=== PATIENT | male | born 1935 | race Caucasian/White ===

== ENCOUNTER → 2016-11-19 | Outpatient (CLI) | payer MEDICARE, OTHER ==
[~2016-11-19] MED LIST: ALLO100T PO; AMLO10TA PO; ASPI81TA57 PO; Azithromycin PO; KETO5DRO14 OD; LEVO750T6 PO; LOTE5DRO4 OD; Losartan Potassium PO; NAPR220T29 PO; OMEP20CA12 PO; VALS1TAB78 PO; VALS1TAB80 PO; [UNRECOGNIZED DRUG - OTHER]
--- OUTSIDE RECORDS SUMMARY | 2016-11-19 09:33 | XMS REPORT | Continuity of Care Document ---
Author Author [facility] Organization [facility] Address Unknown Phone Unavailable Support Name Relationship Address Phone ADOLFO MCCORD MD Caregiver [address], [address] [place] [address] CLAU MORAES MD Caregiver [address] [place] [address] GELA MORAES MD Caregiver [address] [facility], [address] [id number] TEMI ABURTO Next Of Kin [address] [place] [address] Insurance Providers Payer Name Policy Number Subscriber Name Relationship [employer] [id number] Peter Aburto 18 Self / Same As Patient Comm Crossover Enter Ins Name [id number] Peter Aburto 18 Self / Same As Patient Advance Directives Directive Response Recorded Date/Time Advance Directives No 01/31/15 7:50pm Resuscitation Status Full Code 01/31/15 7:50pm Chief Complaint and Reason for Visit Chief Complaint PNEUMONIA Reason for Visit Pneumonia Problems Medical Problems Problem Onset Date Status Pneumonia Unknown Active Medications Medication Dose Route Sig Days/Qty Instructions Order Date Discontinued Date Status Valsartan/Hydrochlorothiazide 1 Each PO DAILY 01/31/15 02/01/15 Discontinued Allopurinol 100 Mg PO DAILY 01/31/15 02/01/15 Discontinued Amlodipine Besylate 10 Mg PO DAILY 01/31/15 Active Aspirin 81 Mg PO DAILY 01/31/15 Active Naproxen Sodium 440 Mg PO DAILY PRN PAIN TAKES 2 (220MG) TABLETS 02/03/15 Discontinued [Rescula] 01/31/15 02/01/15 Discontinued Valsartan/Hydrochlorothiazide 1 Tab PO DAILY 02/01/15 02/03/15 Discontinued Allopurinol 100 Mg PO DAILY 02/01/15 Active Omeprazole 20 Mg PO DAILY PRN ACID REFLUX 02/01/15 Active Loteprednol Etabonate 1 Drop OD TWICE A DAY 02/01/15 Active Ketorolac Tromethamine 1 Drop OD TWICE A DAY 02/01/15 Active [Azithromycin] 250 Mg PO DAILY 1 Days 02/03/15 Active [Losartan Potassium] 50 Mg PO DAILY 30 Days 02/03/15 Active Levofloxacin 750 Mg PO DAILY 4 Days 02/03/15 Active Social History Social History Problem Response Recorded Date/Time Alcohol Use Denies Use 01/31/2015 7:50pm Recreational Drug Use No 01/31/2015 7:50pm Recent Foreign Travel No 01/31/2015 7:50pm Recent Infectious Disease Exposure No 01/31/2015 7:50pm Smoking Status Never a Smoker 01/31/2015 7:50pm Query Response Start Date Stop Date Smoking Status Never a Smoker Hospital Discharge Instructions No hospital discharge instructions. Plan of Care Discharge Date 02/03/15 10:55am Disposition 30 STILL A PATIENT Instructions/Education Provided 2 Gram Sodium Diet (DC) Bacterial Pneumonia (DC) Forms Provided PDI Medical Prescriptions See Medications Section Referrals (Unspecified) Reason(s) for Referral: FEBRUARY 20, 2015 1015 Functional Status Query Response Date Recorded Comprehension Ability Understands Concepts February 03, 2015 8:30am Allergies, Adverse Reactions, Alerts Allergen Type Severity Reaction Status Last Updated No Known Drug Allergies Active 01/31/15 Immunizations Name Given Type Date of Pneumonia Vaccine 01/18/13 Historical Vital Signs Acute Vital Signs Vital Response Date/Time Temperature (Fahrenheit) 97.1 degrees F (97.6 - 99.5) Temperature (Calculated Celsius) 36.58731 degrees C (36.4 - 37.5) Temperature Source Temporal Pulse Rate (adult) 95 bpm (60 - 90) Respiratory Rate 18 bpm (12 - 24) O2 Sat by Pulse Oximetry 93 % (88 - 100) Blood Pressure 129/78 mm Hg Pain Pain Intensity 0 Height (Feet) 5 feet Height (Inches) 10.00 inches Height (Calculated Centimeters) 177.176166 cm Weight (Pounds) 219 pounds Weight (Ounces) 11.2 oz Weight (Calculated Grams) 29134.245 gm Weight (Calculated Kilograms) 99.522635 kilograms Calculated BMI 31.42 Results Laboratory Results Test Name Result Units Flags Reference Collection Date/Time Result Date/ Time Comments White Blood Count 12.1 10^3/uL H 4.3-11.0 02/03/2015 5:15am 02/03/2015 5: 55am Red Blood Count 3.98 10^6/uL L 4.35-5.85 02/03/2015 5:15am 02/03/2015 5: 55am Hemoglobin 12.0 G/DL L 13.3-17.7 02/03/2015 5:15am 02/03/2015 5:55am Hematocrit 36 % L 40-54 02/03/2015 5:15am 02/03/2015 5:55am Mean Corpuscular Volume 91 FL 80-99 02/03/2015 5:15am 02/03/2015 5: 55am Mean Corpuscular Hemoglobin 30 PG 25-34 02/03/2015 5:1502/03/2015 5: 55am Mean Corpuscular Hemoglobin Concent 33 G/DL 32-36 02/03/2015 5:15am 10/2014 5:55am Red Cell Distribution Width 14.0 % 10.0-14.5 02/03/2015 5:15am 2014 5:55am Platelet Count 321 10^3/uL 130-400 02/03/2015 5:15am 02/03/2015 5:55am Mean Platelet Volume 10.2 FL 7.4-10.4 02/03/2015 5:15am 02/03/2015 5: 55am Neutrophils (%) (Auto) 85 % H 42-75 01/31/2015 6:40pm 01/31/2015 6:50pm Lymphocytes (%) (Auto) 5 % L 12-44 01/31/2015 6:40pm 01/31/2015 6:50pm Monocytes (%) (Auto) 9 % 0-12 01/31/2015 6:40pm 01/31/2015 6:50pm Eosinophils (%) (Auto) 0 % 0-10 01/31/2015 6:40pm 01/31/2015 6:50pm Basophils (%) (Auto) 0 % 0-10 01/31/2015 6:40pm 01/31/2015 6:50pm Neutrophils # (Auto) 16.6 X 10^3 H 1.8-7.8 01/31/2015 6:40pm 01/31/2015 6 :50pm Lymphocytes # (Auto) 1.1 X 10^3 1.0-4.0 01/31/2015 6:40pm 01/31/2015 6: 50pm Monocytes # (Auto) 1.7 X 10^3 H 0.0-1.0 01/31/2015 6:40pm 01/31/2015 6: 50pm Eosinophils # (Auto) 0.0 10^3/uL 0.0-0.3 01/31/2015 6:40pm 01/31/2015 6 :50pm Basophils # (Auto) 0.0 10^3/uL 0.0-0.1 01/31/2015 6:40pm 01/31/2015 6: 50pm Neutrophils % (Manual) 86 % 01/31/2015 6:40pm 01/31/2015 7:02pm Band Neutrophils 3 % 01/31/2015 6:40pm 01/31/2015 7:02pm Lymphocytes % (Manual) 5 % 01/31/2015 6:40pm 01/31/2015 7:02pm Monocytes % (Manual) 6 % 01/31/2015 6:40pm 01/31/2015 7:02pm Eosinophils % (Manual) 0 % 01/31/2015 6:40pm 01/31/2015 7:02pm Basophils % (Manual) 0 % 01/31/2015 6:40pm 01/31/2015 7:02pm Blood Morphology Comment NORMAL 01/31/2015 6:40pm 01/31/2015 7: 02pm Urine Color YELLOW 01/31/2015 2:36am 02/01/2015 3:03am Urine Clarity CLEAR 01/31/2015 2:36am 02/01/2015 3:03am Urine pH 5 5-9 01/31/2015 2:36am 02/01/2015 3:03am Urine Specific [place] 1.015 * 1.016-1.022 01/31/2015 2:36am 2014 3:03am Urine Protein 3+ * NEGATIVE 01/31/2015 2:36am 02/01/2015 3:03am Urine Glucose (UA) 3+ * NEGATIVE 01/31/2015 2:36am 02/01/2015 3:03am Urine RBC (Auto) NEGATIVE NEGATIVE 01/31/2015 2:36am 02/01/2015 3: 03am Urine Ketones NEGATIVE NEGATIVE 01/31/2015 2:36am 02/01/2015 3:03am Urine Nitrite NEGATIVE NEGATIVE 01/31/2015 2:36am 02/01/2015 3:03am Urine Bilirubin NEGATIVE NEGATIVE 01/31/2015 2:36am 02/01/2015 3: 03am Urine Urobilinogen NORMAL MG/DL NORMAL 01/31/2015 2:36am 02/01/2015 3: 03am Urine Leukocyte Esterase NEGATIVE NEGATIVE 01/31/2015 2:36am 2014 3:03am Urine RBC RARE /HPF 01/31/2015 2:36am 02/01/2015 3:03am Urine WBC NONE /HPF 01/31/2015 2:36am 02/01/2015 3:03am Urine Bacteria NEGATIVE /HPF 01/31/2015 2:36am 02/01/2015 3:03am Urine Squamous Epithelial Cells 2-5 /HPF 01/31/2015 2:36am 2014 3:03am Urine Crystals NONE /LPF 01/31/2015 2:36am 02/01/2015 3:03am Urine Casts NONE /LPF 01/31/2015 2:36am 02/01/2015 3:03am Urine Mucus NEGATIVE /LPF 01/31/2015 2:36am 02/01/2015 3:03am Urine Culture Indicated NO 01/31/2015 2:36am 02/01/2015 3:03am Sodium Level 138 MMOL/L 135-145 02/03/2015 5:15am 02/03/2015 6:14am Potassium Level 4.3 MMOL/L 3.6-5.0 02/03/2015 5:15am 02/03/2015 6:14am Chloride Level 109 MMOL/L H 98-107 02/03/2015 5:15am 02/03/2015 6:14am Carbon Dioxide Level 22 MMOL/L 21-32 02/03/2015 5:15am 02/03/2015 6: 14am Blood Urea Nitrogen 16 MG/DL 7-18 02/03/2015 5:15am 02/03/2015 6:14am Creatinine 1.14 MG/DL 0.60-1.30 02/03/2015 5:15am 02/03/2015 6:14am BUN/Creatinine Ratio 14 02/03/2015 5:15am 02/03/2015 6:14am Estimat Glomerular Filtration Rate > 60 02/03/2015 5:152014 6:14am GFR INTERPRETIVE DATA UNITS FOR ESTIMATED GFR (eGFR): mL/min/1.73 M2 REFERENCE RANGE FOR ESTIMATED GFR (eGFR) eGFR NORMAL eGFR >60 MODERATELY DECREASED eGFR 30-59 SEVERLY DECREASED eGFR 15-29 KIDNEY FAILURE <15 (OR DIALYSIS) Glucose Level 159 MG/DL H 70-105 02/03/2015 5:1502/03/2015 6:14am Glucometer 138 MG/DL H 70-110 02/03/2015 5:2002/03/2015 5:27am Calcium Level 9.6 MG/DL 8.5-10.1 02/03/2015 5:1502/03/2015 6:14am Magnesium Level 2.1 MG/DL 1.8-2.4 02/02/2015 4:2002/02/2015 5:32am Total Bilirubin 1.0 MG/DL 0.1-1.0 02/03/2015 5:1502/03/2015 6:14am Alkaline Phosphatase 269 U/L H 40-136 02/03/2015 5:15am 02/03/2015 6: 14am Aspartate Amino Transf (AST/SGOT) 134 U/L H 5-34 02/03/2015 5:152014 6:14am Alanine Aminotransferase (ALT/SGPT) 128 U/L H 0-55 02/03/2015 5:1510/2014 6:14am Total Protein 6.7 G/DL 6.4-8.2 02/03/2015 5:1502/03/2015 6:14am Albumin 3.0 G/DL L 3.2-4.5 02/03/2015 5:1502/03/2015 6:14am Microbiology Results Procedure Source Result Collection Date/Time Result Date/Time Blood Culture Peripheral, Lt Ac GRAM NEGATIVE KATE 01/31/2015 6:43pm 2014 7:17am ESCHERICHIA COLI 01/31/2015 6:43pm 02/02/2015 7:17am Procedures No known history of procedures. Encounters Encounter Location Date/Time Discharged Inpatient Via [facility] 01/31/15 7:00pm Recent Diagnosis Pneumonia
--- NOTE | 2016-11-19 14:19 | Diagnostic Imaging Report ---
Ultrasound of the pelvis. INDICATION: Renal failure. FINDINGS: There is mild distention of the urinary bladder with prevoid volume of 341 mL. There is a lobulated contour of the urinary bladder with no solid mass. Postvoid volume is 300. IMPRESSION: Incomplete emptying of the bladder with postvoid volume of 300 mL. Lobulated contour of the bladder is seen. This might relate to chronic obstructive changes, presumably prostate-related. Correlate clinically. Dictated by: Dictated on workstation # [id number]
--- NOTE | 2016-11-19 14:58 | Diagnostic Imaging Report ---
Renal duplex ultrasound. INDICATION: Hypertension, renal failure. FINDINGS: The right kidney is 8.8 cm in length and demonstrates moderate atrophy of the cortex. The left kidney is 10.4 cm with cortical thickness near the lower limits of normal. The right renal artery is obscured by bowel gas. The left renal artery is only seen proximally with peak systolic velocities of 53 cm/sec, within normal limits. The mid and distal segments of the left renal artery are not seen. Resistive index in the left kidney is 0.64 to 0.71. Mildly distended urinary bladder with lobulated contour seen. No hydronephrosis in the kidneys. IMPRESSION: Moderate atrophy in the right kidney. Limited evaluation of the renal arteries. Dictated by: Dictated on workstation # [id number]
== END ==
LOC: RAD 09:30
PROVIDERS: ATTEND Internal Medicine Nephrology
DX: I12.9 Hypertensive chronic kidney disease with stage 1 through stage 4 chronic kidney disease, or unspecified chronic kidney disease (principal); N18.3 Chronic kidney disease, stage 3 (moderate); M10.9 Gout, unspecified; M19.90 Unspecified osteoarthritis, unspecified site; E78.5 Hyperlipidemia, unspecified; R80.9 Proteinuria, unspecified
CPT/HCPCS: 76857; 93975

== ENCOUNTER → 2017-01-10 | Outpatient (CLI) | payer MEDICARE, OTHER ==
--- NOTE | 2017-01-10 11:36 | Diagnostic Imaging Report ---
INDICATION: Cough. PA and lateral views of the chest are obtained. Comparison is made study of 03/13/2015. FINDINGS: Overall heart size is at the upper limits of normal. There is no evidence of pneumothorax or consolidation. 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 No pneumothorax or significant pleural fluid is identified. Degenerative changes in the spine are stable. IMPRESSION: No acute abnormality or adverse change is identified. Dictated by: Dictated on workstation # [id number]
== END ==
LOC: RAD 11:15
PROVIDERS: ATTEND Physician Assistant
DX: R05 Cough (principal); R06.2 Wheezing
CPT/HCPCS: 71020

== ENCOUNTER → 2017-07-31 | Outpatient (CLI) | payer MEDICARE, OTHER ==
[2017-07-31 11:08] LABS: BASOPHILS # (AUTO) 0.1 10^3/uL (0.0-0.1); BASOPHILS % (AUTO) 0 % (0-10); EOSINOPHILS # (AUTO) 0.5 10^3/uL (0.0-0.3); EOSINOPHILS % (AUTO) 4 % (0-10); LYMPHOCYTES # (AUTO) 3.7 X 10^3 (1.0-4.0); LYMPHOCYTES % (AUTO) 26 % (12-44); MEAN CORPUSCULAR HEMOGLOBIN 31 PG (25-34); MEAN CORPUSCULAR HGB CONC 33 G/DL (32-36); MEAN CORPUSCULAR VOLUME 93 FL (80-99); MEAN PLATELET VOLUME 9.8 FL (7.4-10.4); MONOCYTES # (AUTO) 1.1 X 10^3 (0.0-1.0); MONOCYTES % (AUTO) 8 % (0-12); NEUTROPHILS # (AUTO) 8.8 X 10^3 (1.8-7.8); NEUTROPHILS % (AUTO) 62 % (42-75); PLATELET COUNT 319 10^3/uL (130-400); RED BLOOD COUNT 4.34 10^6/uL (4.35-5.85); RED CELL DISTRIBUTION WIDTH 14.2 % (10.0-14.5); RETICULOCYTE % 1.61 % (0.50-2.40); WHITE BLOOD COUNT 14.2 10^3/uL (4.3-11.0)
[2017-07-31 11:12] LABS: PATH WILL NEED TO REVIEW SMEAR PATH TO REVIEW
[2017-07-31 12:30] LABS: BASOPHILS % (MANUAL) 1 %; EOSINOPHILS % (MANUAL) 5 %; LYMPHOCYTES % (MANUAL) 30 %; NEUTROPHILS % (MANUAL) 56 %; REACTIVE LYMPHOCYTES 3 %
== END ==
LOC: LAB 10:48
PROVIDERS: ATTEND Nurse Practitioner
DX: D72.829 Elevated white blood cell count, unspecified (principal)
CPT/HCPCS: 36415; 85007; 85027; 85045

== ENCOUNTER → 2017-08-06 | Outpatient (CLI) | payer MEDICARE, OTHER | LOC: LAB 12:00 | PROVIDERS: ATTEND Internal Medicine | DX: D72.829 Elevated white blood cell count, unspecified (principal) | CPT/HCPCS: 36415; 81270; 88368; 88369 ==

== ENCOUNTER 2017-08-19 21:01 | Outpatient (CLI) | payer MEDICARE, OTHER | END 2017-08-20 06:02 | disposition home or self-care (01) | LOC: SLEEP 21:01 | PROVIDERS: ATTEND Internal Medicine Cardiovascular Disease | DX: G47.33 Obstructive sleep apnea (adult) (pediatric) (principal); I10 Essential (primary) hypertension; R06.83 Snoring | CPT/HCPCS: 95810 ==

== ENCOUNTER 2017-09-20 20:55 | Outpatient (CLI) | payer MEDICARE, OTHER | END 2017-09-21 06:05 | disposition home or self-care (01) | LOC: SLEEP 20:55 | PROVIDERS: ATTEND Otolaryngology Otolaryngology/Facial Plastic Surgery | DX: G47.33 Obstructive sleep apnea (adult) (pediatric) (principal) | CPT/HCPCS: 95811 ==

== ENCOUNTER → 2017-10-13 | Outpatient (CLI) | payer MEDICARE, OTHER ==
--- NOTE | 2017-10-13 17:22 | Diagnostic Imaging Report ---
INDICATION: Shortness of breath. PA and lateral views of the chest were obtained. Comparison made with prior examination from 01/10/2017. FINDINGS: There is cardiomegaly. There are patchy bibasilar infiltrates left greater than right. There is no pleural effusion or pneumothorax. Mediastinum is unremarkable. IMPRESSION: Patchy bibasilar infiltrates left greater than right. Mild cardiomegaly. Dictated by: Dictated on workstation # [id number]
== END ==
LOC: RAD 16:25
PROVIDERS: ATTEND Nurse Practitioner
DX: I51.7 Cardiomegaly (principal)
CPT/HCPCS: 71046

== ENCOUNTER → 2017-10-23 | Outpatient (CLI) | payer MEDICARE, OTHER ==
--- NOTE | 2017-10-23 12:06 | Diagnostic Imaging Report ---
INDICATION: Pneumonia. TIME OF EXAM: 12:04 PM Correlation is made with prior study from 10/13/2017. FINDINGS: The heart remains enlarged. Patchy airspace infiltrates in the left lung base persist. There may be minimal patchy infiltrate in the right mid and lower lung field as well. Overall appearance is similar to prior. No new parenchymal abnormality is seen. The upper lung arita are clear. No effusion or pneumothorax is seen. IMPRESSION: Stable patchy bilateral pulmonary infiltrates when compared with examination 10 days earlier. Dictated by: Dictated on workstation # [id number]
== END ==
LOC: RAD 11:20
PROVIDERS: ATTEND Nurse Practitioner
DX: J18.9 Pneumonia, unspecified organism (principal); R91.8 Other nonspecific abnormal finding of lung field
CPT/HCPCS: 71046

== ENCOUNTER 2017-11-03 12:26 | Outpatient (RCR) | payer MEDICARE, OTHER | END 2018-02-01 | disposition home or self-care (01) | LOC: CARD 12:26 | PROVIDERS: ATTEND Nurse Practitioner | DX: R00.1 Bradycardia, unspecified (principal); R53.83 Other fatigue | CPT/HCPCS: 93225; 93226 ==

== ENCOUNTER 2018-08-05 10:44 | Inpatient (IN) | payer MEDICARE, OTHER ==
[~2018-08-05] VITALS: Ht 175.3 cm; Wt 112.5 kg
--- NOTE | 2018-08-05 11:03 | ED Lower Extremity ---
General Chief Complaint: Trauma-Non Activation Stated Complaint: WEAK/BACK PAIN Source: patient, family ( and son) Exam Limitations: no limitations History of Present Illness Date Seen by Provider: Aug 05, 2018 Time Seen by Provider: 11:03 Initial Comments Patient is an 83-year-old male who was brought to the emergency room by [facility] for reports of increasing weakness, low back pain, and right knee pain. He reports that he's got chronic right knee pain but it is worse than normal. He reports that last night he slid out of his bed landing on his tailbone causing the low back pain. He denies injuring the right knee from the fall. There is obvious swelling to the right knee. Onset: yesterday, last week Pain/Injury Location: right knee Method of Injury: fell Allergies and Home Medications Allergies Coded Allergies: No Known Drug Allergies (Unverified , 01/31/15) Home Medications Allopurinol 100 Mg Tablet, 100 MG PO DAILY, (Reported) Amlodipine Besylate 10 Mg Tablet, 10 MG PO DAILY, (Reported) Aspirin 81 Mg Tablet.dr, 81 MG PO DAILY, (Reported) Bethanechol Chloride 50 Mg Tablet, 50 MG PO BID, (Reported) Calcitriol 0.25 Mcg Capsule, 0.25 MCG PO DAILY, (Reported) Carboxymethylcellulose Sodium 15 Ml Drops, 1-2 DROPS OU TID PRN for DRY EYES, ( Reported) Finasteride 5 Mg Tablet, 5 MG PO DAILY, (Reported) Furosemide 20 Mg Tablet, 60 MG PO DAILY, (Reported) TAKES 3 (20MG) TABLETS Metoprolol Succinate 25 Mg Tab.er.24h, 25 MG PO DAILY, (Reported) Tamsulosin HCl 0.4 Mg Cap.er.24h, 0.4 MG PO 1730, (Reported) Patient Home Medication List Home Medication List Reviewed: Yes Review of Systems Constitutional: see HPI; No chills, No fever; weakness Musculoskeletal: see HPI, back pain, joint pain (right knee) All Other Systems Reviewed Negative Unless Noted: Yes Past Ubjorbg-Zyutux-Dyzjdc Hx Past Med/Social Hx: Reviewed Nursing Past Med/Soc Hx Immunizations Up To Date Date of Pneumonia Vaccine: Jan 18, 2013 Past Medical History Eye Surgery Pneumonia High Cholesterol, Hypertension Reproductive Disorders: No Gout Cataract Adverse Reaction/Blood Tranf: No Family Medical History Reviewed Nursing Family Hx Arthritis 19 FATHER, Onset:Unknown Dementia 19 MOTHER, Onset:Unknown FH: colon cancer 19 FATHER, Onset:Unknown FH: emphysema 19 MOTHER, Onset:Unknown Physical Exam Vital Signs Vital Signs - First Documented 08/05/18 10:46 Temp 98.1 Pulse 87 Resp 15 B/P (MAP) 168/94 (118) Pulse Ox 96 O2 Delivery Room Air Capillary Refill : Height, Weight, BMI Height: 5'10.00" Weight: 219lbs. 11.2oz. 99.474165gd; BMI Method:Stated General Appearance: WD/WN, no apparent distress HEENT: PERRL/EOMI, normal ENT inspection, TMs normal Cardiovascular: normal peripheral pulses, regular rate, rhythm, no edema, no gallop, no JVD, no murmur Respiratory: chest non-tender, lungs clear, normal breath sounds, no respiratory distress, no accessory muscle use Gastrointestinal: normal bowel sounds, non tender, soft, no organomegaly, no pulsatile mass Back: normal inspection, no CVA tenderness, vertebral tenderness Knees: left knee non-tender, left knee normal inspection, left knee normal range of motion, left knee no evidence of injury; right knee joint effusion, right knee pain, right knee soft tissue tenderness, right knee swelling, right knee other (redness, limited range of motion) Neurologic/Tendon: normal sensation, normal motor functions Neurologic/Psychiatric: alert, normal mood/affect, oriented x 3 Skin: normal color, warm/dry Procedures/Interventions Additional Procedures: Arthrocentesis Aspirating Progress Consent was obtained for procedure. The area was cleaned with Betadine. The area was draped in sterile fashion. The area was anesthetized with 1% lidocaine approximately 3 mL's. 50 mL of serosanguineous synovial fluid was aspirated. Sterile technique was used. Progress/Results/Core Measures Results/Orders Lab Results Laboratory Tests Test 08/05/18 10:53 08/05/18 11:13 08/05/18 12:00 08/05/18 14:15 Range/Units White Blood Count 15.1 H 4.3-11.0 10^3/uL Red Blood Count 4.22 L 4.35-5.85 10^6/uL Hemoglobin 12.9 L 13.3-17.7 G/DL Hematocrit 40 40-54 % Mean Corpuscular Volume 94 80-99 FL Mean Corpuscular Hemoglobin 31 25-34 PG Mean Corpuscular Hemoglobin Concent 33 32-36 G/DL Red Cell Distribution Width 15.1 H 10.0-14.5 % Platelet Count 267 130-400 10^3/uL Mean Platelet Volume 10.6 H 7.4-10.4 FL Neutrophils (%) (Auto) 66 42-75 % Lymphocytes (%) (Auto) 20 12-44 % Monocytes (%) (Auto) 14 H 0-12 % Eosinophils (%) (Auto) 1 0-10 % Basophils (%) (Auto) 0 0-10 % Neutrophils # (Auto) 9.9 H 1.8-7.8 X 10^3 Lymphocytes # (Auto) 3.0 1.0-4.0 X 10^3 Monocytes # (Auto) 2.1 H 0.0-1.0 X 10^3 Eosinophils # (Auto) 0.1 0.0-0.3 10^3/uL Basophils # (Auto) 0.0 0.0-0.1 10^3/uL Neutrophils % (Manual) 71 % Lymphocytes % (Manual) 16 % Monocytes % (Manual) 10 % Eosinophils % (Manual) 0 % Basophils % (Manual) 0 % Band Neutrophils 2 % Reactive Lymphocytes 1 % Blood Morphology Comment NORMAL Erythrocyte Sedimentation Rate 55 H 0-30 MM/HR Sodium Level 142 135-145 MMOL/L Potassium Level 4.2 3.6-5.0 MMOL/L Chloride Level 107 98-107 MMOL/L Carbon Dioxide Level 22 21-32 MMOL/L Anion Gap 13 5-14 MMOL/L Blood Urea Nitrogen 44 H 7-18 MG/DL Creatinine 3.05 H 0.60-1.30 MG/DL Estimat Glomerular Filtration Rate 20 BUN/Creatinine Ratio 14 Glucose Level 136 H 70-105 MG/DL Uric Acid 9.3 H 2.6-7.2 MG/DL Calcium Level 10.3 H 8.5-10.1 MG/DL Corrected Calcium 10.2 H 8.5-10.1 MG/DL Total Bilirubin 0.8 0.1-1.0 MG/DL Aspartate Amino Transf (AST/SGOT) 10 5-34 U/L Alanine Aminotransferase (ALT/SGPT) 8 0-55 U/L Alkaline Phosphatase 77 40-136 U/L Total Protein 8.7 H 6.4-8.2 GM/DL Albumin 4.1 3.2-4.5 GM/DL Urine Color YELLOW Urine Clarity CLEAR Urine pH 5 5-9 Urine Specific [place] 1.020 1.016-1.022 Urine Protein 4+ NEGATIVE Urine Glucose (UA) 1+ H NEGATIVE Urine Ketones NEGATIVE NEGATIVE Urine Nitrite NEGATIVE NEGATIVE Urine Bilirubin NEGATIVE NEGATIVE Urine Urobilinogen NORMAL NORMAL MG/DL Urine Leukocyte Esterase NEGATIVE NEGATIVE Urine RBC (Auto) NEGATIVE NEGATIVE Urine RBC NONE /HPF Urine WBC NONE /HPF Urine Squamous Epithelial Cells 5-10 /HPF Urine Crystals PRESENT H /LPF Urine Amorphous Sediment RARE DELVIS URATES H /LPF Urine Bacteria NEGATIVE /HPF Urine Casts PRESENT /LPF Urine Hyaline Casts 2-5 H /LPF Urine Mucus NEGATIVE /LPF Urine Culture Indicated NO Lactic Acid Level 1.14 0.50-2.00 MMOL/L Body Fluid Source SYNOVIAL Body Fluid Color RED Body Fluid Appearance MKD CLDY/BLDY Body Fluid WBC /uL Body Fluid RBC /uL Body Fluid Polynuclear WBCs 90 % Body Fluid Mononuclear WBCs 4 % Body Fluid Lymphocytes 6 % Body Fluid Other Cells 0 % Body Fluid Crystals URIC ACID Micro Results Microbiology 08/05/18 Blood Culture - Preliminary, Resulted No growth 08/05/18 Blood Culture - Preliminary, Resulted Staph, Coag Neg (SPARERIBS TRIMMER) See Comments 08/05/18 Gram Stain - Final, Resulted 08/05/18 Body Fluid Culture - Preliminary, Resulted No growth My Orders Orders - HERBIE CHRISTIANSON Cbc With Automated Diff (08/05/18 11:03) Comprehensive Metabolic Panel (08/05/18 11:03) Erythrocyte Sedimentation Rate (08/05/18 11:03) Ua Culture If Indicated (08/05/18 11:03) Uric Acid (08/05/18 11:03) Ct Lumbar Spine Wo (08/05/18 11:05) Manual Differential (08/05/18 10:53) Chest 1 View, Ap/Pa Only (08/05/18 11:28) Blood Culture (08/05/18 11:40) Lactic Acid Analyzer (08/05/18 11:40) Knee, Right, 3 Views (08/05/18 12:49) Lidocaine 1% Inj 20 Ml (Xylocaine 1% Inj (08/05/18 14:00) Body Fluid Culture (08/05/18 13:56) Body Fluid Cell Count (08/05/18 13:56) Crystals,Body Fluid (08/05/18 13:56) Ns Iv 500 Ml (Sodium Chloride 0.9%) (08/05/18 15:30) Medications Given in ED Vital Signs/I&O 08/05/18 10:46 Temp 98.1 Pulse 87 Resp 15 B/P (MAP) 168/94 (118) Pulse Ox 96 O2 Delivery Room Air Progress Progress Note : Time: 15:29 Progress Note I have seen and evaluated the patient. I spoke to Dr. Lees and she is here to see the patient at this time. I've informed her of my concern with a possible septic joint and she will follow-up on the results of the synovial joint aspiration. She agrees with plans for admission. Patient agrees with plans for admission and plan of care. Departure Communication (Admissions) Time/Spoke to Admitting Phy: 15:29 Dr. Lees is here to see and evaluate the patient. She agrees with plans for admission with a PT, OT and inpatient rehabilitation consults. Impression Primary Impression: Debility Additional Impressions: Generalized weakness Right knee pain Disposition: ADMITTED INPATIENT Condition: Stable/Unchanged Admissions Decision to Admit Reason: Admit from ER (General) Decision to Admit/Date: Aug 05, 2018 Time/Decision to Admit Time: 15:30 Departure-Patient Inst. Referrals: CLAU MORAES MD (PCP/Family) Primary Care Physician HERBIE CHRISTIANSON Aug 05, 2018 11:03
[2018-08-05 11:10] LABS: BASOPHILS % (AUTO) 0 % (0-10); EOSINOPHILS # (AUTO) 0.1 10^3/uL (0.0-0.3); EOSINOPHILS % (AUTO) 1 % (0-10); HEMATOCRIT 40 % (40-54); HEMOGLOBIN 12.9 G/DL (13.3-17.7); LYMPHOCYTES % (AUTO) 20 % (12-44); MEAN CORPUSCULAR HEMOGLOBIN 31 PG (25-34); MEAN CORPUSCULAR HGB CONC 33 G/DL (32-36); MEAN CORPUSCULAR VOLUME 94 FL (80-99); MEAN PLATELET VOLUME 10.6 FL (7.4-10.4); MONOCYTES # (AUTO) 2.1 X 10^3 (0.0-1.0); MONOCYTES % (AUTO) 14 % (0-12); NEUTROPHILS # (AUTO) 9.9 X 10^3 (1.8-7.8); NEUTROPHILS % (AUTO) 66 % (42-75); PLATELET COUNT 267 10^3/uL (130-400); RED BLOOD COUNT 4.22 10^6/uL (4.35-5.85); RED CELL DISTRIBUTION WIDTH 15.1 % (10.0-14.5); WHITE BLOOD COUNT 15.1 10^3/uL (4.3-11.0)
[2018-08-05 11:21] LABS: ALBUMIN 4.1 GM/DL (3.2-4.5); BILIRUBIN,TOTAL 0.8 MG/DL (0.1-1.0); CALCIUM 10.3 MG/DL (8.5-10.1); CREATININE SERUM 3.05 MG/DL (0.60-1.30); POTASSIUM 4.2 MMOL/L (3.6-5.0); TOTAL PROTEIN 8.7 GM/DL (6.4-8.2); URIC ACID 9.3 MG/DL (2.6-7.2)
[2018-08-05 11:22] LABS: BILIRUBIN,URINE NEGATIVE (NEGATIVE); CLARITY,URINE CLEAR; COLOR,URINE YELLOW; GLUCOSE, URINE (UA) 1+ (NEGATIVE); KETONES,URINE NEGATIVE (NEGATIVE); LEUKOCYTE ESTERASE ,URINE NEGATIVE (NEGATIVE); NITRITE,URINE NEGATIVE (NEGATIVE); PH,URINE 5 (5-9); PROTEIN,URINE 4+ (NEGATIVE); UROBILINOGEN,URINE NORMAL (NORMAL)
--- OUTSIDE RECORDS SUMMARY | 2018-08-05 11:42 | XMS REPORT | Continuity of Care Document ---
Author Author [facility] Organization [facility] Address Unknown Phone Unavailable Allergies Active Description Code Type Severity Reaction Onset Reported/Identified Relationship to Patient Clinical Status Yes No Known Drug Allergies [id number] Drug Allergy Unknown N/A 01/31/2015 Medications There is no data. 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 02/03/2015 CLAU MORAES MD Ot 272.0 PURE HYPERCHOLESTEROLEM 02/03/2015 CLAU MORAES MD Ot 272.4 HYPERLIPIDEMIA NEC/NOS 02/03/2015 CLAU MORAES MD Ot 274.9 GOUT NOS 02/03/2015 CLAU MORAES MD Ot 403.90 HYPTNSV CHR KID DIS, UNSPEC, W CHR KD ST 02/03/2015 CLAU MORAES MD Ot 486 PNEUMONIA, ORGANISM NOS 02/03/2015 CLAU MORAES MD Ot 585.3 CHRONIC KIDNEY DISEASE, STAGE III (MODER 02/03/2015 CLAU MORAES MD Ot 715.90 OSTEOARTHROS NOS-UNSPEC 02/03/2015 CLAU MORAES MD Ot 790.29 OTHER ABNORMAL GLUCOSE 02/03/2015 CLAU MORAES MD Ot 790.6 ABN BLOOD CHEMISTRY NEC 02/03/2015 CLAU MORAES MD Ot 995.91 SEPSIS 02/03/2015 CLAU MORAES MD Ot V15.88 HISTORY OF FALL 03/13/2015 Ot 429.3 03/13/2015 Ot 473.9 03/13/2015 Ot 573.8 03/13/2015 Ot 574.20 03/13/2015 Ot 786.2 03/13/2015 Ot 793.1 03/13/2015 Ot 790.6 04/03/2015 CLAU MORAES MD Ot 427.89 04/03/2015 CLAU MORAES MD Ot 486 04/03/2015 CLAU MORAES MD Ot 780.79 12/20/2015 Ot 429.3 12/20/2015 Ot 473.9 12/20/2015 Ot 573.8 12/20/2015 Ot 574.20 12/20/2015 Ot 786.2 12/20/2015 Ot 793.1 12/20/2015 Ot 790.6 12/20/2015 CLAU MORAES MD Ot 427.89 12/20/2015 CLAU MORAES MD Ot 486 12/20/2015 CLAU MORAES MD Ot 780.79 01/25/2016 CLAU MORAES MD Ot R26.2 DIFFICULTY IN WALKING, NOT ELSEWHERE CLA 09/20/2016 CLAU MORAES MD Ot D72.829 ELEVATED WHITE BLOOD CELL COUNT, UNSPECI 11/19/2016 Ot 429.3 CARDIOMEGALY 11/19/2016 Ot 473.9 CHRONIC SINUSITIS NOS 11/19/2016 Ot 573.8 LIVER DISORDERS NEC 11/19/2016 Ot 574.20 CHOLELITHIASIS NOS 11/19/2016 Ot 786.2 COUGH 11/19/2016 Ot 793.1 NOSP (ABN) FINDINGS ON RADIOLOGICAL OT 11/19/2016 Ot 790.6 ABN BLOOD CHEMISTRY NEC 11/19/2016 CLAU MORAES MD Ot 427.89 CARDIAC DYSRHYTHMIAS NEC 11/19/2016 CLAU MORAES MD Ot 486 PNEUMONIA, ORGANISM NOS 11/19/2016 CLAU MORAES MD Ot 780.79 OTH MALAISE FATIGUE 11/19/2016 CLAU MORAES MD Ot D72.829 ELEVATED WHITE BLOOD CELL COUNT, UNSPECI 11/19/2016 YEYO ACEVEDO, GEORGINA Mendoza Ot N18.3 CHRONIC KIDNEY DISEASE, STAGE 3 (MODERAT 11/20/2016 YEYO ACEVEDO, GEORGINA Mendoza Ot N18.3 CHRONIC KIDNEY DISEASE, STAGE 3 (MODERAT 11/20/2016 YEYO ACEVEDO, GEORGINA Mendoza Ot E78.5 HYPERLIPIDEMIA, UNSPECIFIED 11/20/2016 YEYO ACEVEDO, GEORGINA Mendoza Ot I12.9 HYPERTENSIVE CHRONIC KIDNEY DISEASE W ST 11/20/2016 YEYO ACEVEDO, AHMED S Ot M10.9 GOUT, UNSPECIFIED 11/20/2016 YEYO ACEVEDO, AHMED S Ot M19.90 UNSPECIFIED OSTEOARTHRITIS, UNSPECIFIED 11/20/2016 YEYO ACEVEDO, AHMED S Ot N18.3 CHRONIC KIDNEY DISEASE, STAGE 3 (MODERAT 11/20/2016 YEYO ACEVEDO, AHMED S Ot R80.9 PROTEINURIA, UNSPECIFIED 11/25/2016 YEYO ACEVEDO, AHMED S Ot E78.5 HYPERLIPIDEMIA, UNSPECIFIED 11/25/2016 YEYO ACEVEDO, AHMED S Ot I12.9 HYPERTENSIVE CHRONIC KIDNEY DISEASE W ST 11/25/2016 YEYO ACEVEDO, AHMED S Ot M10.9 GOUT, UNSPECIFIED 11/25/2016 YEYO ACEVEDO, AHMED S Ot M19.90 UNSPECIFIED OSTEOARTHRITIS, UNSPECIFIED 11/25/2016 YEYO ACEVEDO, AHMED S Ot N18.3 CHRONIC KIDNEY DISEASE, STAGE 3 (MODERAT 11/25/2016 YEYO ACEVEDO, AHMED S Ot R80.9 PROTEINURIA, UNSPECIFIED 12/30/2016 YEYO ACEVEDO, AHMED S Ot E78.5 HYPERLIPIDEMIA, UNSPECIFIED 12/30/2016 YEYO ACEVEDO, AHMED S Ot I12.9 HYPERTENSIVE CHRONIC KIDNEY DISEASE W ST 12/30/2016 YEYO ACEVEDO, AHMED S Ot M10.9 GOUT, UNSPECIFIED 12/30/2016 YEYO ACEVEDO, AHMED S Ot M19.90 UNSPECIFIED OSTEOARTHRITIS, UNSPECIFIED 12/30/2016 YEYO ACEVEDO, AHMED S Ot N18.3 CHRONIC KIDNEY DISEASE, STAGE 3 (MODERAT 12/30/2016 YEYO ACEVEDO, AHMED S Ot R80.9 PROTEINURIA, UNSPECIFIED 02/12/2017 JENNIFER SERNA Ot R05 COUGH 02/12/2017 JENNIFER SERNA Ot R06.2 WHEEZING 08/06/2017 PETER ARNOLD APRN Ot D72.829 ELEVATED WHITE BLOOD CELL COUNT, UNSPECI 08/12/2017 LYSSA LAU MD Ot G47.33 OBSTRUCTIVE SLEEP APNEA (ADULT) (PEDIATR 08/18/2017 LYSSA LAU MD Ot G47.33 OBSTRUCTIVE SLEEP APNEA (ADULT) (PEDIATR 08/18/2017 LYSSA LAU MD Ot G47.33 OBSTRUCTIVE SLEEP APNEA (ADULT) (PEDIATR 08/18/2017 DIMITRY ACEVEDO, CLAU Oneal Ot 427.89 CARDIAC DYSRHYTHMIAS NEC 08/18/2017 CLAU MORAES MD Ot 486 PNEUMONIA, ORGANISM NOS 08/18/2017 CLAU MORAES MD Ot 780.79 OTH MALAISE FATIGUE 08/18/2017 CLAU MORAES MD Ot D72.829 ELEVATED WHITE BLOOD CELL COUNT, UNSPECI 08/18/2017 YEYO ACEVEDO, GEORGINA S Ot E78.5 HYPERLIPIDEMIA, UNSPECIFIED 08/18/2017 YEYO ACEVEDO, GEORGINA S Ot I12.9 HYPERTENSIVE CHRONIC KIDNEY DISEASE W ST 08/18/2017 YEYO ACEVEDO, MEEKMED S Ot M10.9 GOUT, UNSPECIFIED 08/18/2017 YEYO ACEVEDO, MEEKMED S Ot M19.90 UNSPECIFIED OSTEOARTHRITIS, UNSPECIFIED 08/18/2017 YEYO ACEVEDO, MEEKMED S Ot N18.3 CHRONIC KIDNEY DISEASE, STAGE 3 (MODERAT 08/18/2017 YEYO ACEVEDO, MEEKMED S Ot R80.9 PROTEINURIA, UNSPECIFIED 08/18/2017 JENNIFER SERNA Ot R05 COUGH 08/18/2017 JENNIFER SERNA Ot R06.2 WHEEZING 08/18/2017 PETER ARNOLD APRN Ot D72.829 ELEVATED WHITE BLOOD CELL COUNT, UNSPECI 08/18/2017 LYSSA LAU MD Ot G47.33 OBSTRUCTIVE SLEEP APNEA (ADULT) (PEDIATR 08/18/2017 CLAU MORAES MD Ot D72.829 ELEVATED WHITE BLOOD CELL COUNT, UNSPECI 08/20/2017 LYSSA LAU MD Ot G47.33 OBSTRUCTIVE SLEEP APNEA (ADULT) (PEDIATR 08/20/2017 LYSSA LAU MD Ot I10 ESSENTIAL (PRIMARY) HYPERTENSION 08/20/2017 LYSSA LAU MD Ot R06.83 SNORING 08/20/2017 LYSSA LAU MD Ot G47.33 OBSTRUCTIVE SLEEP APNEA (ADULT) (PEDIATR 08/20/2017 LYSSA LAU MD Ot I10 ESSENTIAL (PRIMARY) HYPERTENSION 08/20/2017 LYSSA LAU MD Ot R06.83 SNORING 08/22/2017 PETER ARNOLD APRN Ot D72.829 ELEVATED WHITE BLOOD CELL COUNT, UNSPECI 09/12/2017 JADE MATUTE MD Ot G47.33 OBSTRUCTIVE SLEEP APNEA (ADULT) (PEDIATR 09/16/2017 GIOVANI ACEVEDO, JADE Haynes Ot G47.33 OBSTRUCTIVE SLEEP APNEA (ADULT) (PEDIATR 09/20/2017 JADE MATUTE MD Ot G47.33 OBSTRUCTIVE SLEEP APNEA (ADULT) (PEDIATR 09/20/2017 GIOVANI ACEVEDO, JADE Haynes Ot G47.33 OBSTRUCTIVE SLEEP APNEA (ADULT) (PEDIATR 09/21/2017 GIOVANI ACEVEDO, JADE Haynes Ot G47.33 OBSTRUCTIVE SLEEP APNEA (ADULT) (PEDIATR 09/22/2017 GIOVANI ACEVEDO, JADE Haynes Ot G47.33 OBSTRUCTIVE SLEEP APNEA (ADULT) (PEDIATR 10/10/2017 DIMITRY ACEVEDO, CLAU Oneal Ot 427.89 CARDIAC DYSRHYTHMIAS NEC 10/10/2017 CLAU MORAES MD Ot 486 PNEUMONIA, ORGANISM NOS 10/10/2017 CLAU MORAES MD Ot 780.79 OTH MALAISE FATIGUE 10/10/2017 CLAU MORAES MD Ot D72.829 ELEVATED WHITE BLOOD CELL COUNT, UNSPECI 10/10/2017 YEYO ACEVEDO, GEORGINA S Ot E78.5 HYPERLIPIDEMIA, UNSPECIFIED 10/10/2017 YEYO ACEVEDO, GEORGINA S Ot I12.9 HYPERTENSIVE CHRONIC KIDNEY DISEASE W ST 10/10/2017 YEYO ACEVEDO, GEORGINA S Ot M10.9 GOUT, UNSPECIFIED 10/10/2017 YEYO ACEVEDO, GEORGINA S Ot M19.90 UNSPECIFIED OSTEOARTHRITIS, UNSPECIFIED 10/10/2017 YEYO ACEVEDO, GEORGINA S Ot N18.3 CHRONIC KIDNEY DISEASE, STAGE 3 (MODERAT 10/10/2017 YEYO ACEVEDO, GEORGINA S Ot R80.9 PROTEINURIA, UNSPECIFIED 10/10/2017 JENNIFER SERNA Ot R05 COUGH 10/10/2017 JENNIFER SERNA Ot R06.2 WHEEZING 10/10/2017 PETER ARNOLD APRN Ot D72.829 ELEVATED WHITE BLOOD CELL COUNT, UNSPECI 10/10/2017 CLAU MORAES MD Ot D72.829 ELEVATED WHITE BLOOD CELL COUNT, UNSPECI 10/13/2017 CATALINA, PETER R JOURNEYMAN WELDER Ot 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 10/23/2017 PETER ARNOLD R JOURNEYMAN WELDER Ot J18.9 PNEUMONIA, UNSPECIFIED ORGANISM 10/23/2017 CATALINA PETER R JOURNEYMAN WELDER Ot R91.8 OTHER NONSPECIFIC ABNORMAL FINDING OF [place] 11/04/2017 DIMITRY ACEVEDO, CLAU Oneal Ot D72.829 ELEVATED WHITE BLOOD CELL COUNT, UNSPECI 11/06/2017 PETER ARNOLD R JOURNEYMAN WELDER Ot 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 11/14/2017 PETER ARNOLD R JOURNEYMAN WELDER Ot J18.9 PNEUMONIA, UNSPECIFIED ORGANISM 11/14/2017 CATALINA PETER R JOURNEYMAN WELDER Ot R91.8 OTHER NONSPECIFIC ABNORMAL FINDING OF [place] 11/19/2017 EYYO ACEVEDO, GEORGINA S Ot E78.5 HYPERLIPIDEMIA, UNSPECIFIED 11/19/2017 YEYO ACEVEDO, AHMED S Ot I12.9 HYPERTENSIVE CHRONIC KIDNEY DISEASE W ST 11/19/2017 YEYO ACEVEDO, GEORGINA S Ot M10.9 GOUT, UNSPECIFIED 11/19/2017 YEYO ACEVEDO, AHMED S Ot M19.90 UNSPECIFIED OSTEOARTHRITIS, UNSPECIFIED 11/19/2017 YEYO ACEVEDO, MEEKMED S Ot N18.3 CHRONIC KIDNEY DISEASE, STAGE 3 (MODERAT 11/19/2017 YEYO ACEVEDO, AHMED S Ot R80.9 PROTEINURIA, UNSPECIFIED 11/19/2017 DIMITRY ACEVEDO, CLAU Oneal Ot 427.89 CARDIAC DYSRHYTHMIAS NEC 11/19/2017 CLAU MORAES MD Ot 486 PNEUMONIA, ORGANISM NOS 11/19/2017 CLAU MORAES MD Ot 780.79 OTH MALAISE FATIGUE 11/19/2017 CLAU MORAES MD Ot D72.829 ELEVATED WHITE BLOOD CELL COUNT, UNSPECI 11/19/2017 YEYO ACEVEDO, GEORGINA S Ot E78.5 HYPERLIPIDEMIA, UNSPECIFIED 11/19/2017 YEYO ACEVEDO, AHMED S Ot I12.9 HYPERTENSIVE CHRONIC KIDNEY DISEASE W ST 11/19/2017 YEYO ACEVEDO, AHMED S Ot M10.9 GOUT, UNSPECIFIED 11/19/2017 YEYO ACEVEDO, AHMED S Ot M19.90 UNSPECIFIED OSTEOARTHRITIS, UNSPECIFIED 11/19/2017 YEYO ACEVEDO, AHMED S Ot N18.3 CHRONIC KIDNEY DISEASE, STAGE 3 (MODERAT 11/19/2017 YEYO ACEVEDO, AHMED S Ot R80.9 PROTEINURIA, UNSPECIFIED 11/19/2017 JENNIFER SERNA Ot R05 COUGH 11/19/2017 JENNIFER SERNA Ot R06.2 WHEEZING 11/19/2017 PETER ARNOLD R JOURNEYMAN WELDER Ot D72.829 ELEVATED WHITE BLOOD CELL COUNT, UNSPECI 11/19/2017 DIMITRY ACEVEDO, CLAU Oneal Ot D72.829 ELEVATED WHITE BLOOD CELL COUNT, UNSPECI 11/19/2017 CATALINA PETER R JOURNEYMAN WELDER Ot 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 11/19/2017 CATALINA PETER R JOURNEYMAN WELDER Ot J18.9 PNEUMONIA, UNSPECIFIED ORGANISM 11/19/2017 CATALINA PETER R JOURNEYMAN WELDER Ot R91.8 OTHER NONSPECIFIC ABNORMAL FINDING OF [place] 11/19/2017 CATALINA PETER R JOURNEYMAN WELDER Ot R00.1 BRADYCARDIA, UNSPECIFIED 11/19/2017 CATALINA PETER R JOURNEYMAN WELDER Ot R53.83 OTHER FATIGUE 11/20/2017 DIMITRY ACEVEDO, CLAU Oneal Ot D72.829 ELEVATED WHITE BLOOD CELL COUNT, UNSPECI 11/28/2017 PETER ARNOLD R JOURNEYMAN WELDER Ot R00.1 BRADYCARDIA, UNSPECIFIED 11/28/2017 CATALINA PETER R JOURNEYMAN WELDER Ot R53.83 OTHER FATIGUE 01/12/2018 YEYO ACEVEDO, AHMED S Ot E78.5 HYPERLIPIDEMIA, UNSPECIFIED 01/12/2018 YEYO ACEVEDO, AHMED S Ot I12.9 HYPERTENSIVE CHRONIC KIDNEY DISEASE W ST 01/12/2018 YEYO ACEVEDO, AHMED S Ot M10.9 GOUT, UNSPECIFIED 01/12/2018 YEYO ACEVEDO, AHMED S Ot M19.90 UNSPECIFIED OSTEOARTHRITIS, UNSPECIFIED 01/12/2018 YEYO ACEVEDO, AHMED S Ot N18.3 CHRONIC KIDNEY DISEASE, STAGE 3 (MODERAT 01/12/2018 YEYO ACEVEDO, AHMED S Ot R80.9 PROTEINURIA, UNSPECIFIED 02/01/2018 PETER ARNOLD R JOURNEYMAN WELDER Ot R00.1 BRADYCARDIA, UNSPECIFIED 02/01/2018 CATALINA PETER R JOURNEYMAN WELDER Ot R53.83 OTHER FATIGUE 02/02/2018 CATALINA PETER R JOURNEYMAN WELDER Ot R00.1 BRADYCARDIA, UNSPECIFIED 02/02/2018 CATALINAPETER APRN Ot R53.83 OTHER FATIGUE Procedures There is no data. Results Test Result Range Blood CBC with ordered manual differential panel - 08/26/16 14:43 Blood leukocytes automated count (number/volume) 13.8 10*3/uL 4.3-11.0 Blood erythrocytes automated count (number/volume) 4.45 10*6/uL 4.35-5.85 Venous blood hemoglobin measurement (mass/volume) 13.8 g/dL 13.3-17.7 Blood hematocrit (volume fraction) 41 % 40-54 Automated erythrocyte mean corpuscular volume 92 [foz_us] 80-99 Automated erythrocyte mean corpuscular hemoglobin (mass per erythrocyte) 31 pg 25-34 Automated erythrocyte mean corpuscular hemoglobin concentration measurement ( mass/volume) 34 g/dL 32-36 Automated erythrocyte distribution width ratio 14.3 % 10.0-14.5 Automated blood platelet count (count/volume) 280 10*3/uL 130-400 Automated blood platelet mean volume measurement 10.3 [foz_us] 7.4-10.4 Automated blood neutrophils/100 leukocytes 53 % 42-75 Automated blood lymphocytes/100 leukocytes 31 % 12-44 Blood monocytes/100 leukocytes 12 % NRG Automated blood eosinophils/100 leukocytes 3 % 0-10 Automated blood basophils/100 leukocytes 1 % 0-10 Blood neutrophils automated count (number/volume) 7.3 10*3 1.8-7.8 Blood lymphocytes automated count (number/volume) 4.2 10*3 1.0-4.0 Blood monocytes automated count (number/volume) 1.8 10*3 0.0-1.0 Automated eosinophil count 0.5 10*3/uL 0.0-0.3 Automated blood basophil count (count/volume) 0.1 10*3/uL 0.0-0.1 Manual blood segmented neutrophils/100 leukocytes 55 % NRG Blood band neutrophils/100 leukocytes 0 % NRG Manual blood lymphocytes/100 leukocytes 28 % NRG Manual eosinophils/100 leukocytes in nose 2 % NRG Manual blood basophils/100 leukocytes 0 % NRG Blood lymphocytes variant/100 leukocytes 3 % NRG Blood erythrocyte morphology finding identification NORMAL NRG Automated reticulocyte percentage - 08/26/16 14:43 Blood reticulocytes count (number/volume) 70 10*9/L 24- 90 Blood reticulocytes/100 erythrocytes 1.57 % 0.50-2.40 Pathologist review of blood test by comment - 07/31/17 11:02 Blood leukocytes automated count (number/volume) 14.2 10*3/uL 4.3-11.0 Blood erythrocytes automated count (number/volume) 4.34 10*6/uL 4.35-5.85 Venous blood hemoglobin measurement (mass/volume) 13.4 g/dL 13.3-17.7 Blood hematocrit (volume fraction) 41 % 40-54 Automated erythrocyte mean corpuscular volume 93 [foz_us] 80-99 Automated erythrocyte mean corpuscular hemoglobin (mass per erythrocyte) 31 pg 25-34 Automated erythrocyte mean corpuscular hemoglobin concentration measurement ( mass/volume) 33 g/dL 32-36 Automated erythrocyte distribution width ratio 14.2 % 10.0-14.5 Automated blood platelet count (count/volume) 319 10*3/uL 130-400 Automated blood platelet mean volume measurement 9.8 [foz_us] 7.4-10.4 Automated blood neutrophils/100 leukocytes 62 % 42-75 Automated blood lymphocytes/100 leukocytes 26 % 12-44 Blood monocytes/100 leukocytes 5 % NRG Automated blood eosinophils/100 leukocytes 4 % 0-10 Automated blood basophils/100 leukocytes 0 % 0-10 Blood neutrophils automated count (number/volume) 8.8 10*3 1.8-7.8 Blood lymphocytes automated count (number/volume) 3.7 10*3 1.0-4.0 Blood monocytes automated count (number/volume) 1.1 10*3 0.0-1.0 Automated eosinophil count 0.5 10*3/uL 0.0-0.3 Automated blood basophil count (count/volume) 0.1 10*3/uL 0.0-0.1 Manual blood segmented neutrophils/100 leukocytes 56 % NRG Manual blood lymphocytes/100 leukocytes 30 % NRG Manual eosinophils/100 leukocytes in nose 5 % NRG Manual blood basophils/100 leukocytes 1 % NRG Blood lymphocytes variant/100 leukocytes 3 % NRG Blood erythrocyte morphology finding identification NORMAL NRG Blood toxic granules detection by light microscopy 1+ NRG Blood reticulocytes count (number/volume) 70 10*9/L 24- 90 Blood reticulocytes/100 erythrocytes 1.61 % 0.50-2.40 Blood or tissue JAK2 gene p.V617F detection by molecular genetics method - 10/22 15:30 JAK2 V617F mutation detection Not Detected NRG BCR-ABL1 gene translocation detection by fluorescence in situ hybridization ( FISH) - 08/06/17 15:30 [id number] WHOLE BLOOD NRG BCR-ABL gene translocation detection See Report NRG Encounters ACCT No. Visit Date/Time Discharge Status Pt. Type Provider Facility Loc./Unit Complaint [id number] 02/02/2018 12:30:00 02/02/2018 23:59:59 CLS Preadmit PETER ARNOLD JOURNEYMAN WELDER [facility] CARD BRADYCARDIA [id number] 11/03/2017 12:26:00 02/01/2018 00:01:00 DIS Outpatient PETER ARNOLD JOURNEYMAN WELDER [facility] CARD BRADYCARDIA [id number] 10/23/2017 11:20:00 10/23/2017 23:59:59 CLS Outpatient PETER ARNOLD JOURNEYMAN WELDER [facility] RAD J18.9 [id number] 10/13/2017 16:25:00 10/13/2017 23:59:59 CLS Outpatient PETER ARNOLD JOURNEYMAN WELDER [facility] RAD SOA [id number] 09/20/2017 20:55:00 09/21/2017 06:05:00 DIS Outpatient GIOVANI ACEVEDO, JADE Haynes [facility] SLEEP [place] [id number] 08/19/2017 21:01:00 08/20/2017 06:02:00 DIS Outpatient JUDI ACEVEDO, LYSSA Heredia [facility] SLEEP SNORING,HTN [id number] 08/06/2017 12:00:00 08/06/2017 23:59:59 CLS Outpatient DIMITRY ACEVEDO, CLAU Oneal [facility] LAB LEUKOCYTOSIS [id number] 07/31/2017 10:48:00 07/31/2017 23:59:59 CLS Outpatient PETER ARNOLD APRN [facility] LAB LEUKOCYTOSIS [id number] 01/10/2017 11:15:00 01/10/2017 23:59:59 CLS Outpatient JENNIFER SERNA [facility] RAD COUGH,WHEEZING [id number] 11/19/2016 09:30:00 11/19/2016 23:59:59 CLS Outpatient YEYO ACEVEDO, GEORGINA S [facility] RAD HYPERTENSIVE DISORDER ,GOUT [id number] 08/26/2016 14:35:00 08/26/2016 23:59:59 CLS Outpatient CLAU MORAES MD [facility] LAB ABNORMAL WBC [id number] 01/25/2016 11:14:00 01/25/2016 14:29:00 DIS Outpatient CLAU MORAES MD [facility] REHAB GAIT STABILIZATION [id number] 03/13/2015 11:44:00 03/13/2015 23:59:59 CLS Outpatient CLAU MORAES MD [facility] CARD F/U PNEUMONIA [id number] 01/31/2015 19:00:00 02/03/2015 10:55:00 DIS Inpatient CLAU MORAES MD [facility] SURGICAL PNEUMONIA [id number] 09/25/2011 08:53:00 Document Registration [id number] 07/01/2011 08:57:00 Document Registration [id number] 06/25/2011 11:32:00 Document Registration
[2018-08-05 11:48] LABS: BACTERIA,URINE NEGATIVE /HPF
[2018-08-05 11:49] LABS: AMORPHOUS SEDIMENT,UR RARE AMOR URATES /LPF
[2018-08-05 11:51] LABS: ERYTHROCYTE SEDIMENTATION RATE 55 MM/HR (0-30)
--- NOTE | 2018-08-05 12:01 | Diagnostic Imaging Report ---
INDICATION: Weakness. EXAMINATION: Frontal chest obtained at 11:38 a.m. FINDINGS: Heart is borderline in size. Mediastinal silhouette is unremarkable. There is focal eventration of left hemidiaphragm. There is no focal infiltrate or pneumothorax or pleural fluid. IMPRESSION: Borderline heart size with no acute process in the chest. Dictated by: Dictated on workstation # [id number]
[2018-08-05 12:04] LABS: BAND NEUTROPHILS 2 %; BASOPHILS % (MANUAL) 0 %; EOSINOPHILS % (MANUAL) 0 %; LYMPHOCYTES % (MANUAL) 16 %; MONOCYTES % (MANUAL) 10 %; NEUTROPHILS % (MANUAL) 71 %
[2018-08-05 12:05] LABS: REACTIVE LYMPHOCYTES 1 %
[2018-08-05 12:06] LABS: RBC MORPH NORMAL
--- NOTE | 2018-08-05 12:39 | Diagnostic Imaging Report ---
PROCEDURE: CT lumbar spine without contrast. TECHNIQUE: Multiple contiguous axial images were obtained through the lumbar spine without the use of intravenous contrast. Sagittal and coronal reformations were then performed. INDICATION: Pain and weakness. FINDINGS: The bones appear demineralized. Vertebral statures are normal. No acute or suspect endplate irregularity. There is degenerative disc space narrowing with bridging osteophytes or syndesmophytes anteriorly at each level. The alignment is normal. There are degenerative changes to the anterior SI joints. There are aortoiliac atherosclerotic vascular calcifications with infrarenal aortic ectasia and mild aneurysmal dilatation at 3.1 cm transverse x 3.3 cm AP. No periaortic hemorrhage, edema, or fluid collection. There is atrophy and likely chronic right hydroureteronephrosis. The distal right ureter extends below the zhwwu-ie-evzz. The ureter itself is dilated maximal 2.1 cm. There is marked dilatation of the right renal pelvis and partially visualized calyces. The contralateral left kidney appeared grossly unremarkable, incompletely included in the weeqy-ka-klaj. Degenerative changes to the discs, endplates, facets, and ligamenta flava result in wkka-[id number] canal stenosis at L5-S1 with moderate left and mild right foraminal narrowing. At L4-L5, there is mild canal and mild biforaminal stenosis. No lumbar fracture or bony destructive process. IMPRESSION: 1. Unruptured atherosclerotic infrarenal abdominal aortic aneurysm, likely chronic. Severe right hydroureteronephrosis with secondary right renal atrophy, etiology not defined. The distal ureter extending below the ikvug-wl-dzyl. 2. Underlying osteopenia, spondylosis, bridging osteophytes or syndesmophytes with sdne-of-wmtjdhdt lower lumbar stenosis with transitional anatomy and lumbarization of the S1 segment. An acute lumbar spinal abnormality is not identified. Dictated by: Dictated on workstation # [id number]
--- NOTE | 2018-08-05 13:25 | Diagnostic Imaging Report ---
INDICATION: Right knee pain and swelling. TIME OF EXAM: 01:12 p.m. Three views of the right knee were obtained. There is medial and patellofemoral compartment degenerative change with joint space narrowing and marginal spurring. Lateral compartment is unremarkable. The articular surfaces are smooth. No fracture or dislocation is seen. There appears to be a small joint effusion present. IMPRESSION: Small joint effusion and degenerative changes. No acute bony abnormality is detected. Dictated by: Dictated on workstation # [id number]
[2018-08-05] MEDS ORDERED: LIDOCAINE 1% INJ 20 ML 20 ML VIAL INJ ONE (14:00)
[2018-08-05 15:22] LABS: BODY FLUID SOURCE SYNOVIAL
[2018-08-05 15:24] LABS: BODY FLUID COLOR RED
[2018-08-05 15:25] LABS: BODY FLUID APPEARENCE MKD CLDY/BLDY
[2018-08-05] MEDS ORDERED: NS IV 500 ML 500 ML IV SCH (15:30)
[2018-08-05 16:29] LABS: BF OTHER CELLS 0 %; LYMPHOCYTES,BODY FLUID 6 %
[2018-08-05] MEDS ORDERED: ACETAMINOPHEN 500 MG TAB (TYLENOL) PO PRN (16:30)
[2018-08-05] MEDS ORDERED: ONDANSETRON 4 MG/2 ML (SDV) Z0FRAN IV PRN (16:30)
[2018-08-05] MEDS ORDERED: METO-351 (16:54)
[2018-08-05] MEDS ORDERED: METO-387 PO (16:54)
[2018-08-05] MEDS ORDERED: OMEP20CA12 (16:54)
[2018-08-05] MEDS ORDERED: TAMS0.4C2 PO (16:54)
[2018-08-05] MEDS ORDERED: FURO-125 (16:54)
[2018-08-05] MEDS ORDERED: ALLO100T PO (16:54)
[2018-08-05] MEDS ORDERED: AMLO10TA6 (16:54)
[2018-08-05] MEDS ORDERED: BETH50TA PO (16:54)
[2018-08-05] MEDS ORDERED: ASPI-586 PO (16:54)
[2018-08-05] MEDS ORDERED: FINA5TAB6 PO (16:54)
[2018-08-05] MEDS: NS IV 1000 ML 1,000 ML IV SCH (16:57)
[2018-08-05] MEDS: CATHETER FLUSH 10 ML SYR IV PRN (16:57)
[2018-08-05 20:00] VITALS: BP 143/70
--- NOTE | 2018-08-05 21:14 | History & Physical-Hospitalist ---
History of Present Illness HPI/Chief Complaint CC: Right knee pain with effusion HPI: This is an 83-year-old white male clinic patient of Dr. 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 Patient was found to have a warm right knee with effusion that was tapped and fluid was analyzed showing uric acid crystals with elevated white count and sedimentation rate that he did not have any fever or anything to suggest a septic knee so is placed in observation gentle IV fluids initiated and plan for inpatient rehabilitation admission. All of his home meds will be reviewed and reconciled and restarted. He does see a butcher meat in [place]. Source: patient, family, RN/MD Exam Limitations: no limitations Date Seen 08/05/18 Time Seen by a Provider: 15:30 Attending Physician [place] Lees DO PCP Taz Monge MD Referring Physician Date of Admission Aug 05, 2018 at 15:30 Home Medications & Allergies Home Medications Reviewed patient Home Medication Reconciliation performed by pharmacy medication reconciliations telemetry technician and/or nursing. Patients Allergies have been reviewed. Allergies Allergies Coded Allergies No Known Drug Allergies (Unverified01/31/15) Past Ifzgbvp-Flfkfs-Kkkapn Hx Past Med/Social Hx: Reviewed Nursing Past Med/Soc Hx, Reviewed and Corrections made Patient Social History Marrital Status: Employed/Student: retired Alcohol Use: Denies Use Recreational Drug Use: No Smoking Status: Never a Smoker 2nd Hand Smoke Exposure: No Physical Abuse Screen: No Sexual Abuse: No Recent Foreign Travel: No Contact w/other who traveled: No Recent Infectious Disease Expo: No Immunizations Up To Date Date of Pneumonia Vaccine: Jul 22, 2018 Date of Influenza Vaccine: Jul 22, 2018 Past Medical History Surgeries: Eye Surgery Cardiac: High Cholesterol, Hypertension Reproductive: No Genitourinary: Bladder Infection, Renal Failure Musculoskeletal: Gout HEENT: Cataract History of Blood Disorders: No Adverse Reaction to Blood Mcdonough: No Family History Arthritis 19 FATHER, Onset:Unknown Dementia 19 MOTHER, Onset:Unknown FH: colon cancer 19 FATHER, Onset:Unknown FH: emphysema 19 MOTHER, Onset:Unknown Hypertension Review of Systems Constitutional: see HPI, dizziness, malaise, weakness EENTM: no symptoms reported Respiratory: no symptoms reported Cardiovascular: no symptoms reported Gastrointestinal: loss of appetite Genitourinary: decreased output Musculoskeletal: back pain, joint pain Skin: no symptoms reported Psychiatric/Neurological: No Symptoms Reported All Other Systems Reviewed Negative Unless Noted: Yes Physical Exam Physical Exam Vital Signs Vital Signs - First Documented 08/05/18 08/06/18 10:46 04:12 Temp 98.1 Pulse 87 Resp 15 B/P (MAP) 168/94 (118) Pulse Ox 96 O2 Delivery Room Air O2 Flow Rate 1.00 Capillary Refill : Less Than 3 Seconds Height, Weight, BMI Height: 5'9.00" Weight: 220lbs. 0.0oz. 99.307304fh; 32.5 BMI Method:Stated General Appearance: No Apparent Distress, WD/WN, Chronically ill, Obese Eyes: Bilateral Eye Normal Inspection, Bilateral Eye PERRL HEENT: PERRL/EOMI, TMs Normal, Normal ENT Inspection, Pharynx Normal Neck: Full Range of Motion, Normal Inspection, Non Tender, Supple, Carotid Bruit Respiratory: Chest Non Tender, Lungs Clear, Normal Breath Sounds, No Accessory Muscle Use, No Respiratory Distress Cardiovascular: Regular Rate, Rhythm, No Edema, No Gallop, No JVD, No Murmur, Normal Peripheral Pulses Gastrointestinal: Normal Bowel Sounds, No Organomegaly, No Pulsatile Mass, Non Tender, Soft Back: Normal Inspection, No CVA Tenderness, No Vertebral Tenderness Extremity: Normal Capillary Refill, Normal Inspection, Normal Range of Motion, Non Tender, No Calf Tenderness, No Pedal Edema Neurologic/Psychiatric: Alert, Oriented x3, No Motor/Sensory Deficits, Normal Mood/Affect Skin: Normal Color, Warm/Dry Lymphatic: No Adenopathy Results Results/Procedures Labs Laboratory Tests 08/05/18 10:53 08/06/18 05:15 Patient resulted labs reviewed. Assessment/Plan Admission Diagnosis Assessment: Right knee effusion Gout Chronic kidney disease stage IV Debility Inability to ambulate Anemia of kidney disease BPH Dry eye syndrome Hypertension Plan: Gentle IV fluids Physical therapy evaluation Rehabilitation referral Check labs in morning Admission Status: Observation Diagnosis/Problems Diagnosis/Problems (1) Right knee pain Status: Acute (2) Renal failure (ARF), acute on chronic Status: Acute Qualifiers: Acute renal failure type: unspecified Chronic kidney disease stage: unspecified stage Qualified Codes: N17.9 - Acute kidney failure, unspecified; N18.9 - Chronic kidney disease, unspecified (3) Hypertension Status: Chronic Qualifiers: Hypertension type: essential hypertension Qualified Codes: I10 - Essential (primary) hypertension (4) Gout Status: Chronic Qualifiers: Gout site: unspecified site Gout etiology: unspecified cause Chronicity: unspecified Qualified Codes: M10.9 - Gout, unspecified (5) Debility Status: Acute (6) Generalized weakness Status: Acute Clinical Quality Measures DVT/VTE Risk/Contraindication: Risk Factor Score Per Nursin RFS Level Per Nursing on Admit: 4+=Very High [place] LEES DO Aug 05, 2018 21:14
[2018-08-06] VITALS: BP 141/71
[2018-08-06 04:12] VITALS: BP 140/71
[2018-08-06] MEDS: NS IV 1000 ML 1,000 ML IV SCH ×2 (05:11→17:24)
[2018-08-06 05:44] LABS: BASOPHILS % (AUTO) 0 % (0-10); EOSINOPHILS % (AUTO) 0 % (0-10); HEMATOCRIT 35 % (40-54); HEMOGLOBIN 11.4 G/DL (13.3-17.7); LYMPHOCYTES % (AUTO) 13 % (12-44); MEAN CORPUSCULAR HEMOGLOBIN 31 PG (25-34); MEAN CORPUSCULAR HGB CONC 33 G/DL (32-36); MEAN CORPUSCULAR VOLUME 93 FL (80-99); MEAN PLATELET VOLUME 10.6 FL (7.4-10.4); MONOCYTES % (AUTO) 13 % (0-12); NEUTROPHILS # (AUTO) 11.3 X 10^3 (1.8-7.8); NEUTROPHILS % (AUTO) 74 % (42-75); PLATELET COUNT 254 10^3/uL (130-400); RED BLOOD COUNT 3.73 10^6/uL (4.35-5.85); RED CELL DISTRIBUTION WIDTH 15.2 % (10.0-14.5); WHITE BLOOD COUNT 15.3 10^3/uL (4.3-11.0)
[2018-08-06 06:06] LABS: ALBUMIN 3.4 GM/DL (3.2-4.5); BILIRUBIN,TOTAL 0.6 MG/DL (0.1-1.0); CALCIUM 9.2 MG/DL (8.5-10.1); CREATININE SERUM 2.67 MG/DL (0.60-1.30); POTASSIUM 3.7 MMOL/L (3.6-5.0); TOTAL PROTEIN 7.5 GM/DL (6.4-8.2)
[2018-08-06 08:26] VITALS: BP 133/64
[2018-08-06] MEDS ORDERED: FURO20TA4 PO (08:55)
[2018-08-06] MEDS ORDERED: AMLO10TA6 PO (08:55)
[2018-08-06] MEDS ORDERED: CHOL5000 PO (08:55)
--- NOTE | 2018-08-06 09:12 | Progress Note-Hospitalist ---
Subjective HPI/CC On Admission Date Seen by Provider: Aug 06, 2018 Time Seen by Provider: 09:30 Subjective/Events-last exam Patient now running a low-grade fever and elevated white count did not change at 15,000 I suspect right knee septic arthritis and effusion shows Gram stain some gram- positive cocci Reached out to orthopedic surgeon Dr. Lares he will see him in consultation for possible right septic knee but could certainly be a gout attack with gouty effusion of the right knee but he did support empiric antibiotics of vancomycin and Zosyn and supportive care in the meantime Reconcile and restarted most of home medication but held allopurinol due to worsening renal function but it has improved from 3.0 to 2.6 his usual baseline Overall patient appears to be very chronically ill and at 83 years old unsure the recovery potential but will try our best Review of Systems General: Chills, Fatigue, Malaise Gastrointestinal: Nausea Musculoskeletal: leg pain Focused Exam Lactate Level 08/05/18 12:00: Lactic Acid Level 1.14 Objective Exam Vital Signs Vital Signs Date Time Temp Pulse Resp B/P (MAP) Pulse Ox O2 Delivery O2 Flow Rate FiO2 08/06/18 08:26 98.6 64 24 133/64 (87) 96 Nasal Cannula 1.00 Capillary Refill : Less Than 3 Seconds General Appearance: No Apparent Distress, WD/WN, Chronically ill, Obese, Other (poor status overall) Respiratory: Chest Non Tender, Lungs Clear, Normal Breath Sounds, No Accessory Muscle Use, No Respiratory Distress Cardiovascular: Regular Rate, Rhythm, No Edema, No Gallop, No JVD, No Murmur, Normal Peripheral Pulses Extremity: Other (right knee increased warmth and slight redness noted with limmited ROM due to pain) Neurologic/Psychiatric: Alert, Oriented x3, No Motor/Sensory Deficits, Depressed Affect Skin: Normal Color, Warm/Dry Results/Procedures Lab Laboratory Tests 08/06/18 05:15 Patient resulted labs reviewed. Assessment/Plan Assessment and Plan Assess & Plan/Chief Complaint Assessment: Acute right septic knee arthritis placing on empiric antibiotic of vancomycin and Zosyn and consulting orthopedic surgery History of gout with crystals on effusion Gram stain Severe stage IV kidney disease sees nephrology as an outpatient Hypertension Severe debility suspect baseline minimal activity at home Anemia of kidney disease Plan: IV antibiotics Orthopedic surgery referral Pain control Out of bed DVT prophylaxis Diagnosis/Problems Diagnosis/Problems (1) Septic joint of right knee joint Status: Acute Qualifiers: Septic arthritis organism: due to unspecified organism Qualified Codes: M00.9 - Pyogenic arthritis, unspecified (2) Right knee pain Status: Acute (3) Gout Status: Chronic Qualifiers: Gout site: unspecified site Gout etiology: unspecified cause Chronicity: unspecified Qualified Codes: M10.9 - Gout, unspecified (4) Hypertension Status: Chronic Qualifiers: Hypertension type: essential hypertension Qualified Codes: I10 - Essential (primary) hypertension (5) Renal failure (ARF), acute on chronic Status: Acute Qualifiers: Acute renal failure type: unspecified Chronic kidney disease stage: unspecified stage Qualified Codes: N17.9 - Acute kidney failure, unspecified; N18.9 - Chronic kidney disease, unspecified (6) Debility Status: Acute (7) Generalized weakness Status: Acute Clinical Quality Measures DVT/VTE Risk/Contraindication: Risk Factor Score Per Nursin RFS Level Per Nursing on Admit: 4+=Very High CHARLES ARRINGTON DO Aug 06, 2018 09:12
[2018-08-06] MEDS ORDERED: VANCOMYCIN INJECTION 0.1 MG in NS (IVPB) 250 ML IV SCH (09:15)
[2018-08-06] MEDS ORDERED: CALC0.253 PO (09:30)
[2018-08-06] MEDS ORDERED: CARB15DR OU (09:30)
--- NOTE | 2018-08-06 09:43 | Occupational Therapy Eval ---
OT Evaluation-General/PLF Medical Diagnosis Admission Date Aug 06, 2018 at 09:10 Medical Diagnosis: debility, weakness, R knee pain Onset Date: Aug 05, 2018 Therapy Diagnosis Therapy Diagnosis: decr self care, weakness, decr funct mob, decr act [place] Height/Weight Height (Feet): 5 Height (Inches): 9.00 Weight (Pounds): 220 Weight (Ounces): 0.0 Precautions Precautions/Isolations: Fall Prevention, Standard Precautions Safety Interventions: Bed Exit Alarm, Reorient-PRN Weight Bear Status WBS (Ord/Comment): No restrictions Referral Physician: Nabeel Referral Reason: Evaluation/Treatment Medical History Pertinent Medical History: HTN Additional Medical History Eye surgery. Pneumonia. Gout. Uses CPAP at night Current History Slid out of bed and landed on tailbone. Also had R knee pain. Low back pain. Had arthrocentesis on R knee in ED Reviewed History: Yes Social History Home: Single Level Current Living Status: Spouse Entry Into Home: Stairs With Railing Steps Into Home: 2 ADL-Prior Level of Function Functional [place] Measure 0=Not Assessed/NA 4=Minimal Assistance 1=Total Assistance 5=Supervision or Setup 2=Maximal Assistance 6=Modified [place] 3=Moderate Assistance 7=Complete [place] ADL PLOF Comments Pt reported that he was previously able to manage his basic self care needs ( dressing, bathing, grooming, toileting, eating). He manages his own meds and did not use a device for mobility. His tends to do more of the house chores and he mowed his yard until last year. He still drives. 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 Self Care DME/Equipment: Grab Bars, Shower, Tall Toilet, Tub/Shower OT Current Status Subjective Pt seen in room, up in bed, agreeable to OT. Pain rated 3/10 in R knee but not described. Appearance Alert, cooperative Mental Status/Objective Patient Orientation: Person, Place, Time, Situation Attachments: IV, Oxygen Current Glasses/Contacts: Yes Hearing Aids: Yes Dentures/Partials: No Hand Dominance: Right Upper Extremity ROM Grossly WFL bilat Upper Extremity Strength Grossly 4/5 bilat ADL-Treatment ADL-Current Pt has been able to feed himself without assist. He was not able to get up to the toilet with 2 person assist due to his knee pain and is using a urinal. Functional [place] Measure 0=Not Assessed/NA 4=Minimal Assistance 1=Total Assistance 5=Supervision or Setup 2=Maximal Assistance 6=Modified [place] 3=Moderate Assistance 7=Complete IndependenceIRFPAI Quality Coding Scale 6 Independent with activity with or without an assistive device 5 Patient requires set up or clean up by helper. Patient completes activity by themselves 4 Supervision or touching assist (CGA). [place] provide cues , steadying assist 3 The helper provides less than half the effort to complete the activity 2 The helper provides more than half the effort to complete the activity 1 Dependent. The helper does all the effort to complete an activity 7 Patient refused to complete or attempt activity 9 The patient did not perform the activity before the current illness or injury 88 Not attempted due to Medical conditions or safety concerns Toilet/Commode Transfer (FIM): 1 (two person) Education OT Patient Education: Purpose of tx/functional activities, Rehab process Teaching Recipient: Patient, Family Teaching Methods: Discussion Response to Teaching: Verbalize Understanding OT Agricultural Researcher Goals Skilled Nursing Goals Time Frame: Aug 13, 2018 Eating (FIM): 6 Grooming(FIM): 6 Bathing(FIM): 5 Upper Body Dressing(FIM): 5 Lower Body Dressing(FIM): 5 Toileting(FIM): 6 Toilet/Commode Transfer(FIM): 6 Shower Transfer(FIM): 5 Additional Goals: 1-Demonstrate ADL Tasks, 2-Verbalize Understanding, 3- ImproveStrength/Eugenie 1=Demonstrate adherence to instructed precautions during ADL tasks. 2=Patient will verbalize/demonstrate understanding of assistive devices/ modifications for ADL. 3=Patient will improve strength/tolerance for activity to enable patient to perform ADL's. OT Education/Plan Problem List/Assessment Assessment: Decreased Activ Tolerance, Decreased UE Strength, Dependent Transfers, Impaired Self-Care Skills Pt would benefit from skilled OT to increase his independence in self care to allow him to return home safety. Discharge Recommendations Plan/Recommendations: Continue POC Treatment Plan/Plan of Care Treatment,Training & Education: Yes Patient would benefit from OT for education, treatment and training to promote independence in ADL's, mobility, safety and/or upper extremity function for ADL' s. Plan of Care: ADL Retraining, Functional Mobility, UE Funct Exercise/Act, UE Neuromus Re-Ed/Coord Treatment Duration: Aug 13, 2018 Frequency: 5 times per week Estimated Hrs Per Day: .5 hour per day Agreement: Yes Rehab Potential: Good Time/GCodes Start Time: 08:30 Stop Time: 08:50 Total Time Billed (hr/min): 20 Billed Treatment Time visit, 20 minutes evaluation moderate intensity HARSHAL BOSE OT Aug 06, 2018 09:43
--- NOTE | 2018-08-06 09:55 | Physical Therapy Evaluation ---
PT Evaluation-General Medical Diagnosis Admission Date Aug 06, 2018 at 09:10 Medical Diagnosis: Debility/General Weakness Onset Date: Aug 06, 2018 Therapy Diagnosis Therapy Diagnosis: General Weakness Height/Weight Height (Feet): 5 Height (Inches): 9.00 Weight (Pounds): 220 Weight (Ounces): 0.0 Precautions Precautions/Isolations: Fall Prevention, Standard Precautions Weight Bear Status Right Lower Extremity: Right Weight Bearing/Tolerated Left Lower Extremity: Left Full Weight Bearing Referral Reason for Referral: Evaluation/Treatment Medical History Pertinent Medical History: HTN Additional Medical History high cholesterol Current History Patient was admitted to hospital after falling out of bed. Patient currently avoids moving the right knee but claims he did not fall on it. Patient reported that fluid was drained off the knee and are seeing if knee is septic. Social History Home: Single Level Current Living Status: Spouse Entry Into Home: Stairs With Railing PT Steps Into Home: 2 PT Steps Inside Home: 0 Prior/Core FIM Prior Level of Function Functional [place] Measure 0=Not Assessed/NA 4=Minimal Assistance 1=Total Assistance 5=Supervision or Setup 2=Maximal Assistance 6=Modified [place] 3=Moderate Assistance 7=Complete IndependenceIRFPAI Quality Coding Scale 6 Independent with activity with or without an assistive device 5 Patient requires set up or clean up by helper. Patient completes activity by themselves 4 Supervision or touching assist (CGA). [place] provide cues , steadying assist 3 The helper provides less than half the effort to complete the activity 2 The helper provides more than half the effort to complete the activity 1 Dependent. The helper does all the effort to complete an activity 7 Patient refused to complete or attempt activity 9 The patient did not perform the activity before the current illness or injury 88 Not attempted due to Medical conditions or safety concerns Bed Mobility: 7 Transfers (B,C,W/C) (FIM): 7 Gait: 7 Stairs: 7 PT Evaluation-Current Subjective Patient awake in bed visiting with his . Patient agreed to PT evaluation. Pain Numeric Pain Scale: 5-Moderate Pain Location: Right Location Body Site: Knee Pain Description: Acute Objective Patient Orientation: Confused Problem Solving: Fair Attachments: Oxygen, IV ROM/Strength ROM Upper Extremities WNL ROM Lower Extremities WNL but patient reports pain with PROM with the right knee Strength Upper Extremities WNL Strength Lower Extremities Unable to test right knee due to Pt. 3+/5 on L LE Integumentary/Posture Bowel Incontinence: Yes Bladder Incontinence: Yes Neuromuscular (Tone, Coordination, Reflexes) diminished coordination due to weakness Sensory Vision: Functional Hearing: Functional Sensation Right Upper Extremit: Intact Sensation Left Upper Extremity: Intact Sensation Right Lower Extremit: Intact Sensation Left Lower Extremity: Intact Transfers Functional [place] Measure 0=Not Assessed/NA 4=Minimal Assistance 1=Total Assistance 5=Supervision or Setup 2=Maximal Assistance 6=Modified [place] 3=Moderate Assistance 7=Complete [place] Transfers (B, C, W/C) (FIM): 1 Scootin Rollin Supine to/from Sit: 4 Sit to/from Stand: 1 patient unable to weight bear right LE due to knee pain Gait Mode of Locomotion: Walk Anticipated Mode of Locomotion: Both Distance (FIM): 0=does not occure Balance Sitting Static: Good Sitting Dynamic: Good Standing Static: Poor Assessment/Needs Pt required dependent assistance to with transfere/bed mobility throughout evaluation. Patient was unable to sit on his own and required 2 assistants to help him get to standing. Patient was unable to maintain standing and sat down shortly afterwards with noted lean to right. Patient reported both legs felt weak and unable to lift his body from the edge of the bed. Patient will benefit therapy to maintain ROM in R knee and overall LE strengthening to improve overall function. Rehab Potential: Fair PT Neurosurgery Physician Goals Neurosurgery Physician Goals PT Usp Goals Time Frame: Aug 15, 2018 Transfers (B,C,W/C) (FIM): 5 Gait (FIM): 2 Gait distance (FIM): 2=770-21 ft Distance: 50 Gait Level of Assist: 4 Gait Assistive Device: FWW PT Plan Problem List Problem List: Activity Tolerance, Functional Strength, Safety, Balance, Gait, Transfer, Bed Mobility, ROM Treatment/Plan Treatment Plan: Continue Plan of Care Treatment Plan: Bed Mobility, Education, Functional Activity Eugenie, Functional Strength, Gait, Safety, Therapeutic Exercise, Transfers Treatment Duration: Aug 15, 2018 Frequency: 6 times per week Estimated Hrs Per Day: .25 hour per day Patient and/or Family Agrees t: Yes Safety Risks/Education Patient Education: Gait Training, Transfer Techniques, Safety Issues Time/GCodes Time In: 855 Time Out: 914 Total Billed Treatment Time: 19 Total Billed Treatment 1 visit EVModC - 19 mins ACACIA HENRIQUEZ PT Aug 06, 2018 09:55
[2018-08-06] MEDS ORDERED: ARTIFICAL TEARS 0.4 ML UNIT DOSE (REFRESH PLUS) OU PRN (11:15)
[2018-08-06] MEDS: cefTRIAXone FOR IV USE 2,000 MG in NS (IVPB) 50 ML IV SCH (11:40)
[2018-08-06] MEDS: VANCOMYCIN 1500 MG/NS 500 ML IVPB IV SCH ×2 (11:40)
[2018-08-06] MEDS: methylPREDNISolone 40 MG/ML (Solu-MEDROL) VIAL IV SCH ×2 (11:40→21:01)
[2018-08-06] MEDS: ENOXAPARIN 30 MG/0.3 ML (LOVENOX) SYR SC SCH (11:41)
[2018-08-06 12:00] VITALS: BP 159/75
[2018-08-06 16:00] VITALS: BP 132/66
[2018-08-06] MEDS: BETHANECHOL 25 MG (URECHOLINE) TAB PO SCH (16:10)
[2018-08-06] MEDS: TAMSULOSIN 0.4 MG (FLOMAX) CAP PO SCH (17:24)
--- NOTE | 2018-08-06 17:52 | Consultation ---
History of Present Illness History of Present Illness Patient Consulted On(maximiliano/time) 08/06/18 17:48 Date Seen by Provider: Aug 06, 2018 Time Seen by Provider: 17:49 Reason for Visit: Right Knee Effusion History of Present Illness 83 y/o white male with several day history of pain in right knee with effusion. History of multiple gouty attacks, typically in feet. Allergies and Home Medications Allergies Coded Allergies: No Known Drug Allergies (Unverified , 01/31/15) Home Medications Allopurinol 100 Mg Tablet, 100 MG PO DAILY, (Reported) Amlodipine Besylate 10 Mg Tablet, 10 MG PO DAILY, (Reported) Aspirin 81 Mg Tablet.dr, 81 MG PO DAILY, (Reported) Bethanechol Chloride 50 Mg Tablet, 50 MG PO BID, (Reported) Calcitriol 0.25 Mcg Capsule, 0.25 MCG PO DAILY, (Reported) Carboxymethylcellulose Sodium 15 Ml Drops, 1-2 DROPS OU TID PRN for DRY EYES, ( Reported) Finasteride 5 Mg Tablet, 5 MG PO DAILY, (Reported) Furosemide 20 Mg Tablet, 60 MG PO DAILY, (Reported) TAKES 3 (20MG) TABLETS Metoprolol Succinate 25 Mg Tab.er.24h, 25 MG PO DAILY, (Reported) Tamsulosin HCl 0.4 Mg Cap.er.24h, 0.4 MG PO 1730, (Reported) Patient Home Medication List Home Medication List Reviewed: Yes Past Jxaqpno-Ygxqjo-Vtwyev Hx Past Med/Social Hx: Reviewed Nursing Past Med/Soc Hx, Reviewed and Corrections made Patient Social History Alcohol Use: Denies Use Recreational Drug Use: No Smoking Status: Never a Smoker 2nd Hand Smoke Exposure: No Recent Foreign Travel: No Contact w/Someone Who Travel: No Recent Infectious Disease Expo: No Immunizations Up To Date Date of Pneumonia Vaccine: Jul 22, 2018 Date of Influenza Vaccine: Jul 22, 2018 Past Medical History Surgeries: Yes (HERNIA REPAIR) Eye Surgery Respiratory: Yes Pneumonia Cardiac: Yes High Cholesterol, Hypertension Neurological: No Reproductive Disorders: No Bladder Infection, Renal Failure Gastrointestinal: No Musculoskeletal: Yes Gout Endocrine: No Cataract Cancer: No Psychosocial: No Integumentary: No Blood Disorders: No Adverse Reaction/Blood Tranf: No Family Medical History Reviewed Nursing Family Hx Arthritis 19 FATHER, Onset:Unknown Dementia 19 MOTHER, Onset:Unknown FH: colon cancer 19 FATHER, Onset:Unknown FH: emphysema 19 MOTHER, Onset:Unknown Hypertension Review of Systems-General Constitutional: no symptoms reported Respiratory: no symptoms reported Cardiovascular: no symptoms reported Gastrointestinal: no symptoms reported Genitourinary: no symptoms reported Musculoskeletal: joint pain, joint swelling Skin: no symptoms reported Psychiatric/Neurological: No Symptoms Reported Physical Exam-General Problems Physical Exam Vital Signs Vital Signs - First Documented 08/05/18 08/06/18 10:46 04:12 Temp 98.1 Pulse 87 Resp 15 B/P (MAP) 168/94 (118) Pulse Ox 96 O2 Delivery Room Air O2 Flow Rate 1.00 Capillary Refill : Less Than 3 Seconds Eyes: Bilateral Eye Normal Inspection Neck: supple, normal inspection Respiratory: no respiratory distress Cardiovascular: normal peripheral pulses, regular rate, rhythm Rectal: deferred Back: no CVA tenderness, no vertebral tenderness Extremities: swelling, other (Moderate right knee effusion, minimal pain with ROM.) Neurologic/Psychiatric: no motor/sensory deficits Comments Labs with Crystals noted, questionable bacteria. Assessment/Plan Assessment/Plan Admission Diagnosis/Plan Right Knee Pain, effusion Reaspiration performed. Continue to follow for possible infection, but unlikely to have both gout and septic knee. Await repeat labs. Clinical Quality Measures DVT/VTE Risk/Contraindication: Risk Factor Score Per Nursin RFS Level Per Nursing on Admit: 4+=Very High EMELY HOBSON MD Aug 06, 2018 5:52 pm
[2018-08-06 18:33] LABS: GLUCOSE,BODY FLUID 195 MG/DL
[2018-08-06 19:11] LABS: BODY FLUID COLOR RED; BODY FLUID SOURCE SYNOVIAL
[2018-08-06 19:12] LABS: BF OTHER CELLS 0 %; BODY FLUID APPEARENCE MOD BLDY; BODY FLUID RBC COUNT 76000 /uL; BODY FLUID WBC TOTAL COUNT 27500 /uL; LYMPHOCYTES,BODY FLUID 0 %
[2018-08-06 20:00] VITALS: BP 139/66
[2018-08-07] VITALS: BP 143/68
[2018-08-07 04:00] VITALS: BP 142/67
[2018-08-07] MEDS: NS IV 1000 ML 1,000 ML IV SCH (06:16)
[2018-08-07] MEDS: BETHANECHOL 25 MG (URECHOLINE) TAB PO SCH ×2 (06:20→17:16)
[2018-08-07 07:20] LABS: BASOPHILS % (AUTO) 0 % (0-10); EOSINOPHILS % (AUTO) 0 % (0-10); HEMATOCRIT 33 % (40-54); HEMOGLOBIN 10.6 G/DL (13.3-17.7); LYMPHOCYTES # (AUTO) 0.9 X 10^3 (1.0-4.0); LYMPHOCYTES % (AUTO) 9 % (12-44); MEAN CORPUSCULAR HEMOGLOBIN 30 PG (25-34); MEAN CORPUSCULAR HGB CONC 32 G/DL (32-36); MEAN CORPUSCULAR VOLUME 94 FL (80-99); MONOCYTES # (AUTO) 0.5 X 10^3 (0.0-1.0); MONOCYTES % (AUTO) 5 % (0-12); NEUTROPHILS # (AUTO) 8.7 X 10^3 (1.8-7.8); NEUTROPHILS % (AUTO) 86 % (42-75); PLATELET COUNT 221 10^3/uL (130-400); RED BLOOD COUNT 3.51 10^6/uL (4.35-5.85); RED CELL DISTRIBUTION WIDTH 14.8 % (10.0-14.5)
[2018-08-07 07:39] LABS: ALBUMIN 3.1 GM/DL (3.2-4.5); BILIRUBIN,TOTAL 0.2 MG/DL (0.1-1.0); CALCIUM 9.1 MG/DL (8.5-10.1); CREATININE SERUM 2.82 MG/DL (0.60-1.30); POTASSIUM 4.2 MMOL/L (3.6-5.0); TOTAL PROTEIN 6.9 GM/DL (6.4-8.2)
[2018-08-07] MEDS: amLODIPine 10 MG (NORVASC) TAB PO SCH (07:56)
[2018-08-07] MEDS: CALCITRIOL 0.25 MCG (ROCALTROL) CAPSULE PO SCH (07:56)
[2018-08-07] MEDS: FINASTERIDE (PROSCAR) 5 MG TAB PO SCH (07:56)
[2018-08-07] MEDS: cefTRIAXone FOR IV USE 2,000 MG in NS (IVPB) 50 ML IV SCH (07:57)
[2018-08-07] MEDS: ASPIRIN 81 MG CHEW (CHILDREN'S ASA) PO SCH (07:57)
[2018-08-07] MEDS: methylPREDNISolone 40 MG/ML (Solu-MEDROL) VIAL IV SCH ×2 (07:57→20:38)
[2018-08-07 08:26] VITALS: BP 140/65
--- NOTE | 2018-08-07 09:33 | Physical Therapy Daily Note ---
PT Daily Note-Current Subjective Patient awake in bed watching tv and visiting with his . Pt agreed to get out bed for PT. Pain Numeric Pain Scale: 3 Location: Right Location Body Site: Knee Mental Status Patient Orientation: Normal For Age Attachments: IV Transfers Functional [place] Measure 0=Not Assessed/NA 4=Minimal Assistance 1=Total Assistance 5=Supervision or Setup 2=Maximal Assistance 6=Modified [place] 3=Moderate Assistance 7=Complete IndependenceIRFPAI Quality Coding Scale 6 Independent with activity with or without an assistive device 5 Patient requires set up or clean up by helper. Patient completes activity by themselves 4 Supervision or touching assist (CGA). [place] provide cues , steadying assist 3 The helper provides less than half the effort to complete the activity 2 The helper provides more than half the effort to complete the activity 1 Dependent. The helper does all the effort to complete an activity 7 Patient refused to complete or attempt activity 9 The patient did not perform the activity before the current illness or injury 88 Not attempted due to Medical conditions or safety concerns Transfers (B, C, W/C) (FIM): 5 Scootin Rollin Supine to/from Sit: 5 Sit to/from Stand: 4 Weight Bearing Right Lower Extremity: Right Weight Bearing/Tolerated Left Lower Extremity: Left Full Weight Bearing Gait Training Gait (FIM): 1 Distance (FIM): 1=up to 49 ft Distance: 15' Gait Level of Assist: 4 Gait Persons Needed: 1 Gait Assistive Device: FWW Exercises Supine Ex: Bridging, Scooting Seated Therapy Exercises: Ankle pumps, Long arc quads, Hip flexion Assessment Pt transferred from supine to seated edge of bed to perform LE exercises. Patient performed exercises without fatigue and reported that his right knee was not aggravated by movements. Patient requested to use restroom and was able to ambulate 15' with a FWW requiring CGA. Patient returned to bed and worked on bridging and scooting up in bed. PT Assisted Goals Executive Personal Assistant Goals PT Assisted Goals Time Frame: Aug 15, 2018 Transfers (B,C,W/C) (FIM): 5 Gait (FIM): 2 Gait distance (FIM): 0=415-59 ft Distance: 50 Gait Level of Assist: 4 Gait Assistive Device: FWW PT Plan Problem List Problem List: Activity Tolerance, Functional Strength, Safety, Balance, Gait, Transfer, Bed Mobility Treatment/Plan Treatment Plan: Continue Plan of Care Treatment Plan: Bed Mobility, Education, Functional Activity Eugenie, Functional Strength, Gait, Safety, Therapeutic Exercise, Transfers Treatment Duration: Aug 15, 2018 Frequency: 6 times per week Estimated Hrs Per Day: .25 hour per day Patient and/or Family Agrees t: Yes Time/GCodes Time In: 822 Time Out: 838 Total Billed Treatment Time: 16 Total Billed Treatment 1 visit FA - 16' ACACIA HENRIQUEZ PT Aug 07, 2018 09:33
--- NOTE | 2018-08-07 09:35 | Occupational Ther Daily Note ---
OT Current Status-Daily Note Subjective Pt lying in bed, alert. present in room. Pt stated that he was tired of moving and did not want to get up. LLOYD encouraged pt to participate in therapy and educated pt about OT, pt agrees to therapy. Mental Status/Objective Patient Orientation: Person, Place, Time, Situation Functional [place] Measure 0=Not Assessed/NA 4=Minimal Assistance 1=Total Assistance 5=Supervision or Setup 2=Maximal Assistance 6=Modified [place] 3=Moderate Assistance 7=Complete [place] Attachments: IV, Oxygen ADL-Treatment Pt declined completing bathing, changing hospital gown or grooming stating that he does not want to move right now. Pt did agree to complete UE theraband exercises. Other Treatment Medium resistance theraband UE exercises completed to increase activity tolerance and UE strengthening. Pt appeared SOA after each exercise and require recovery breaks between each exercise, 3 sets 10 reps. Theraband left in room with instructions to complete exercises throughout the day. After therapy, pt lying in bed with call light/phone in reach. All needs met in room. Education OT Patient Education: Exercise program Teaching Recipient: Patient Teaching Methods: Demonstration Response to Teaching: Verbalize Understanding, Return Demonstration, Reinforcement Needed OT Short Term Goals Short Term Goals 1=Demonstrate adherence to instructed precautions during ADL tasks. 2=Patient will verbalize/demonstrate understanding of assistive devices/ modifications for ADL. 3=Patient will improve strength/tolerance for activity to enable patient to perform ADL's. OT Correction Goals Needle Loom Operator Helper Goals Time Frame: Aug 13, 2018 Eating (FIM): 6 Grooming(FIM): 6 Bathing(FIM): 5 Upper Body Dressing(FIM): 5 Lower Body Dressing(FIM): 5 Toileting(FIM): 6 Toilet/Commode Transfer(FIM): 6 Shower Transfer(FIM): 5 Additional Goals: 1-Demonstrate ADL Tasks, 2-Verbalize Understanding, 3- ImproveStrength/Eugenie 1=Demonstrate adherence to instructed precautions during ADL tasks. 2=Patient will verbalize/demonstrate understanding of assistive devices/ modifications for ADL. 3=Patient will improve strength/tolerance for activity to enable patient to perform ADL's. OT Education/Plan Problem List/Assessment Pt would benefit from skilled OT to increase his independence in self care to allow him to return home safety. Discharge Recommendations Plan/Recommendations: Continue POC Treatment Plan/Plan of Care Patient would benefit from OT for education, treatment and training to promote independence in ADL's, mobility, safety and/or upper extremity function for ADL' s. Plan of Care: ADL Retraining, Functional Mobility, UE Funct Exercise/Act, UE Neuromus Re-Ed/Coord Treatment Duration: Aug 13, 2018 Frequency: 5 times per week Estimated Hrs Per Day: .5 hour per day Agreement: Yes Rehab Potential: Fair Time/GCodes Start Time: 08:30 Stop Time: 08:45 Total Time Billed (hr/min): 15 Billed Treatment Time 1 visit-EX 1 (15 min) TAWANDA BRANDON Aug 07, 2018 09:35
[2018-08-07] MEDS: VANCOMYCIN 1500 MG/NS 500 ML IVPB IV SCH ×2 (09:44)
[2018-08-07] MEDS: ENOXAPARIN 30 MG/0.3 ML (LOVENOX) SYR SC SCH (09:44)
--- NOTE | 2018-08-07 11:29 | Progress Note-Hospitalist ---
CHARLES ARRINGTON DO 08/07/18 1128: Subjective HPI/CC On Admission Date Seen by Provider: Aug 07, 2018 Time Seen by Provider: 11:00 CC: Right knee pain with effusion HPI: This is an 83-year-old white male clinic patient of Dr. 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 Patient was found to have a warm right knee with effusion that was tapped and fluid was analyzed showing uric acid crystals with elevated white count and sedimentation rate that he did not have any fever or anything to suggest a septic knee so is placed in observation gentle IV fluids initiated and plan for inpatient rehabilitation admission. All of his home meds will be reviewed and reconciled and restarted. He does see a cash manager in [place]. Subjective/Events-last exam Patient appears to have responded to low-dose steroids Maintained on antibiotics until final cultures are finalized Bowel movements are normal Overall improved Will likely need inpatient rehabilitation on Friday if still weak Review of Systems General: Malaise Musculoskeletal: leg pain Focused Exam Lactate Level 08/05/18 12:00: Lactic Acid Level 1.14 08/06/18 11:06: Lactic Acid Level 0.81 Objective Exam Vital Signs Vital Signs Date Time Temp Pulse Resp B/P (MAP) Pulse Ox O2 Delivery O2 Flow Rate FiO2 08/07/18 10:45 NIV CPAP 1.00 08/07/18 08:26 98.4 55 18 140/65 (90) 95 Capillary Refill : Less Than 3 Seconds General Appearance: No Apparent Distress, WD/WN, Chronically ill, Obese Respiratory: Chest Non Tender, Lungs Clear, Normal Breath Sounds, No Accessory Muscle Use, No Respiratory Distress Cardiovascular: Regular Rate, Rhythm, No Edema, No Gallop, No JVD, No Murmur, Normal Peripheral Pulses Genital/Rectal: Other (improved right knee effusion) Neurologic/Psychiatric: Alert, Oriented x3, No Motor/Sensory Deficits, Depressed Affect Skin: Normal Color, Warm/Dry Results/Procedures Lab Laboratory Tests 08/07/18 06:14 Patient resulted labs reviewed. Assessment/Plan Assessment and Plan Assess & Plan/Chief Complaint Assessment: Acute right septic knee arthritis placing on empiric antibiotic of vancomycin and Zosyn and consulting orthopedic surgery who tapped knee again yesterday and cultures are pending History of gout with crystals on effusion Gram stain and likely this is gout attack with profound weakness so placed on empiric steroids Severe stage IV kidney disease sees nephrology as an outpatient Hypertension Severe debility suspect baseline minimal activity at home Anemia of kidney disease Plan: IV antibiotics until Cx finalized Orthopedic surgery referral is appreciated Pain control Out of bed DVT prophylaxis low dose Lovenox IRF Friday? Diagnosis/Problems Diagnosis/Problems (1) Septic joint of right knee joint Status: Acute Qualifiers: Septic arthritis organism: due to unspecified organism Qualified Codes: M00.9 - Pyogenic arthritis, unspecified (2) Right knee pain Status: Acute (3) Gout Status: Chronic Qualifiers: Gout site: unspecified site Gout etiology: unspecified cause Chronicity: unspecified Qualified Codes: M10.9 - Gout, unspecified (4) Hypertension Status: Chronic Qualifiers: Hypertension type: essential hypertension Qualified Codes: I10 - Essential (primary) hypertension (5) Renal failure (ARF), acute on chronic Status: Acute Qualifiers: Acute renal failure type: unspecified Chronic kidney disease stage: unspecified stage Qualified Codes: N17.9 - Acute kidney failure, unspecified; N18.9 - Chronic kidney disease, unspecified (6) Debility Status: Acute (7) Generalized weakness Status: Acute Clinical Quality Measures DVT/VTE Risk/Contraindication: Risk Factor Score Per Nursin RFS Level Per Nursing on Admit: 4+=Very High RANDY GUSMAN MED STUDENT 08/07/18 1140: Subjective Subjective/Events-last exam Pt. states that he is feeling better Pt. seems to be experiencing significant weakness He claims that his knee is no longer hurting Pt. states that his feet are now hurting He reports that his bowels are moving Objective Exam Respiratory: Chest Non Tender, Lungs Clear, Normal Breath Sounds, No Accessory Muscle Use, No Respiratory Distress Cardiovascular: Regular Rate, Rhythm, No Edema, No Gallop, No JVD, No Murmur, Normal Peripheral Pulses Neurologic/Psychiatric: Alert, Oriented x3, No Motor/Sensory Deficits, Normal Mood/Affect Skin: Normal Color, Warm/Dry Assessment/Plan Assessment and Plan Assess & Plan/Chief Complaint Assessment: 1) Accute gout attack of knee and feet 2) Generalized weakness Plan: 1) Pharmacotherapy for gout attack 2) Monitor for possible infection 3) Consult with physical therapy ARRINGTON,CHARLES DO Aug 07, 2018 11:28 RANDY GUSMAN MED STUDENT Aug 07, 2018 11:40
[2018-08-07 12:57] VITALS: BP 134/59
[2018-08-07 15:35] VITALS: BP 133/71
[2018-08-07] MEDS: TAMSULOSIN 0.4 MG (FLOMAX) CAP PO SCH (17:16)
[2018-08-07 19:25] VITALS: BP 140/76
[2018-08-08] VITALS: BP 131/75
[2018-08-08 04:00] VITALS: BP 161/75
[2018-08-08 06:09] LABS: BASOPHILS % (AUTO) 0 % (0-10); EOSINOPHILS % (AUTO) 0 % (0-10); HEMATOCRIT 34 % (40-54); HEMOGLOBIN 11.3 G/DL (13.3-17.7); LYMPHOCYTES # (AUTO) 0.7 X 10^3 (1.0-4.0); LYMPHOCYTES % (AUTO) 4 % (12-44); MEAN CORPUSCULAR HEMOGLOBIN 31 PG (25-34); MEAN CORPUSCULAR HGB CONC 33 G/DL (32-36); MEAN CORPUSCULAR VOLUME 94 FL (80-99); MEAN PLATELET VOLUME 10.6 FL (7.4-10.4); MONOCYTES # (AUTO) 0.8 X 10^3 (0.0-1.0); MONOCYTES % (AUTO) 5 % (0-12); NEUTROPHILS # (AUTO) 14.9 X 10^3 (1.8-7.8); NEUTROPHILS % (AUTO) 91 % (42-75); PLATELET COUNT 299 10^3/uL (130-400); RED BLOOD COUNT 3.64 10^6/uL (4.35-5.85); RED CELL DISTRIBUTION WIDTH 14.9 % (10.0-14.5); WHITE BLOOD COUNT 16.4 10^3/uL (4.3-11.0)
[2018-08-08] MEDS: BETHANECHOL 25 MG (URECHOLINE) TAB PO SCH ×2 (06:28→16:42)
[2018-08-08 06:32] LABS: ALBUMIN 3.3 GM/DL (3.2-4.5); BILIRUBIN,TOTAL 0.2 MG/DL (0.1-1.0); CALCIUM 9.4 MG/DL (8.5-10.1); CREATININE SERUM 2.91 MG/DL (0.60-1.30); POTASSIUM 4.5 MMOL/L (3.6-5.0); TOTAL PROTEIN 7.3 GM/DL (6.4-8.2)
[2018-08-08 08:01] VITALS: BP 148/77
[2018-08-08] MEDS: methylPREDNISolone 40 MG/ML (Solu-MEDROL) VIAL IV SCH ×2 (08:49→20:21)
[2018-08-08] MEDS: cefTRIAXone FOR IV USE 2,000 MG in NS (IVPB) 50 ML IV SCH (08:50)
[2018-08-08] MEDS: amLODIPine 10 MG (NORVASC) TAB PO SCH (08:51)
[2018-08-08] MEDS: CALCITRIOL 0.25 MCG (ROCALTROL) CAPSULE PO SCH (08:51)
[2018-08-08] MEDS: ASPIRIN 81 MG CHEW (CHILDREN'S ASA) PO SCH (08:51)
[2018-08-08] MEDS: FINASTERIDE (PROSCAR) 5 MG TAB PO SCH (08:51)
[2018-08-08] MEDS ORDERED: TROUGH ORDER-PHARMACY XX ONE (09:00)
[2018-08-08] MEDS: ENOXAPARIN 30 MG/0.3 ML (LOVENOX) SYR SC SCH (09:28)
[2018-08-08] MEDS: VANCOMYCIN 1500 MG/NS 500 ML IVPB IV SCH ×2 (11:14)
--- NOTE | 2018-08-08 12:01 | Physical Therapy Daily Note ---
PT Daily Note-Current Subjective Pt in bed, agreeable. Pain not rated but reports (R) knee is "sore but getting better". Pt self limits gait distance in anticipation of (R) knee pain. Mental Status Patient Orientation: Person, Place, Time, Situation Attachments: Oxygen Transfers Functional [place] Measure 0=Not Assessed/NA 4=Minimal Assistance 1=Total Assistance 5=Supervision or Setup 2=Maximal Assistance 6=Modified [place] 3=Moderate Assistance 7=Complete IndependenceIRFPAI Quality Coding Scale 6 Independent with activity with or without an assistive device 5 Patient requires set up or clean up by helper. Patient completes activity by themselves 4 Supervision or touching assist (CGA). [place] provide cues , steadying assist 3 The helper provides less than half the effort to complete the activity 2 The helper provides more than half the effort to complete the activity 1 Dependent. The helper does all the effort to complete an activity 7 Patient refused to complete or attempt activity 9 The patient did not perform the activity before the current illness or injury 88 Not attempted due to Medical conditions or safety concerns Transfers (B, C, W/C) (FIM): 4 Supine to/from Sit: 5 Sit to/from Stand: 4 Weight Bearing Right Lower Extremity: Right Weight Bearing/Tolerated Left Lower Extremity: Left Full Weight Bearing Gait Training Gait (FIM): 2 Distance (FIM): 1=up to 49 ft Distance: 20 Gait Level of Assist: 5 Gait Persons Needed: 1 Gait Assistive Device: FWW Pt ambulated 12' x 1, 20' x 1 with FWW, CGA x 1. Pt ambulates with flexed posture, shuffling but safe gait. CGA for toilet transfer. Treatments Ambulation with FWW within room. Returned to bed with O2 in place. Pt and spouse reported Pt does not wear O2 at home during the day. Trial on RA to BR with sats at 86% upon return to EOB, recovered to 90% on 1L within 30". Discussed with nursing, requested to resume 1L O2 at this time. Pt and spouse agreeable. Assessment Current Status: Good Progress Pt tolerated well. Pt self limits mobility due to anticipation of (R) knee pain. PT Shelter Goals Window Clerk Goals PT Window Clerk Goals Time Frame: Aug 15, 2018 Transfers (B,C,W/C) (FIM): 5 Gait (FIM): 2 Gait distance (FIM): 3=868-83 ft Distance: 50 Gait Level of Assist: 4 Gait Assistive Device: FWW PT Plan Problem List Problem List: Activity Tolerance, Functional Strength, Safety, Balance, Gait, Transfer, Bed Mobility, ROM Treatment/Plan Treatment Plan: Continue Plan of Care Treatment Plan: Bed Mobility, Education, Functional Activity Eugenie, Functional Strength, Gait, Safety, Therapeutic Exercise, Transfers Treatment Duration: Aug 15, 2018 Frequency: 6 times per week Estimated Hrs Per Day: .25 hour per day Patient and/or Family Agrees t: Yes Safety Risks/Education Teaching Recipient: Patient Teaching Methods: Discussion Response to Teaching: Verbalize Understanding Educated on importance of increasing time OOB, increasing activity. Time/GCodes Time In: 1053 Time Out: 1110 Total Billed Treatment Time: 17 Total Billed Treatment 1, FA x 17' G Codes Necessary: PARDEEP Saavedra DPJaleesa Aug 08, 2018 12:01
--- NOTE | 2018-08-08 12:04 | Progress Note-Hospitalist ---
Subjective HPI/CC On Admission Date Seen by Provider: Aug 08, 2018 Time Seen by Provider: 11:30 CC: Right knee pain with effusion HPI: This is an 83-year-old white male clinic patient of Dr. 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 Patient was found to have a warm right knee with effusion that was tapped and fluid was analyzed showing uric acid crystals with elevated white count and sedimentation rate that he did not have any fever or anything to suggest a septic knee so is placed in observation gentle IV fluids initiated and plan for inpatient rehabilitation admission. All of his home meds will be reviewed and reconciled and restarted. He does see a log brander in [place]. Subjective/Events-last exam Patient is feeling better and actually got up and ambulated with PT in the room today. Right knee is feeling better cultures; from the aspiration show no growth. He has one blood culture that is positive for coag-negative staph that is most likely a contaminant. Bowels are moving and he denies having any chest pain or shortness of breath. Review of Systems Musculoskeletal: leg pain Focused Exam Lactate Level 08/06/18 11:06: Lactic Acid Level 0.81 Objective Exam Vital Signs Vital Signs Date Time Temp Pulse Resp B/P (MAP) Pulse Ox O2 Delivery O2 Flow Rate FiO2 08/08/18 08:01 97.1 73 20 148/77 (100) 93 Nasal Cannula 1.00 Capillary Refill : Less Than 3 Seconds General Appearance: No Apparent Distress, WD/WN HEENT: Normal ENT Inspection Neck: Normal Inspection, Non Tender, Supple Respiratory: Lungs Clear, Normal Breath Sounds, No Accessory Muscle Use, No Respiratory Distress Cardiovascular: Regular Rate, Rhythm, No Gallop, No Murmur Gastrointestinal: Normal Bowel Sounds, No Organomegaly, Non Tender, Soft Rectal: Deferred Back: Normal Inspection, No CVA Tenderness Extremity: Normal Capillary Refill, Non Tender, No Calf Tenderness, Other ( Right knee with an effusion and pain with flexion no overlying erythema) Neurologic/Psychiatric: Alert, Oriented x3, No Motor/Sensory Deficits, Normal Mood/Affect, straddle bug driver II-XII Norm as Tested Skin: Normal Color, Warm/Dry Results/Procedures Lab Laboratory Tests 08/08/18 05:42 Patient resulted labs reviewed. Assessment/Plan Assessment and Plan Assess & Plan/Chief Complaint 1. Acute crystalline-induced gouty arthritis right knee improving on prednisone 2. Elevated white count today most likely secondary to the steroids. 3. Hypertension good control 4. Deconditioning we'll most likely require inpatient rehabilitation for strengthening and ambulation. 5. Since aspirations are culture negative will consider discontinuing antibiotics. 6. Chronic renal failure stage IV Clinical Quality Measures DVT/VTE Risk/Contraindication: Risk Factor Score Per Nursin RFS Level Per Nursing on Admit: 4+=Very High KALI DELACRUZ MD Aug 08, 2018 12:03
[2018-08-08 16:20] VITALS: BP 156/68
[2018-08-08] MEDS: TAMSULOSIN 0.4 MG (FLOMAX) CAP PO SCH (16:42)
[2018-08-09] VITALS: BP 159/81
[2018-08-09] MEDS: BETHANECHOL 25 MG (URECHOLINE) TAB PO SCH ×2 (06:24→16:47)
[2018-08-09 08:01] VITALS: BP 157/83
[2018-08-09] MEDS: methylPREDNISolone 40 MG/ML (Solu-MEDROL) VIAL IV SCH (08:13)
[2018-08-09] MEDS: CATHETER FLUSH 10 ML SYR IV PRN (08:13)
[2018-08-09] MEDS: CALCITRIOL 0.25 MCG (ROCALTROL) CAPSULE PO SCH (08:15)
[2018-08-09] MEDS: ASPIRIN 81 MG CHEW (CHILDREN'S ASA) PO SCH (08:15)
[2018-08-09] MEDS: amLODIPine 10 MG (NORVASC) TAB PO SCH (08:15)
[2018-08-09] MEDS: FINASTERIDE (PROSCAR) 5 MG TAB PO SCH (08:15)
[2018-08-09] MEDS: cefTRIAXone FOR IV USE 2,000 MG in NS (IVPB) 50 ML IV SCH (08:16)
[2018-08-09] MEDS: ENOXAPARIN 30 MG/0.3 ML (LOVENOX) SYR SC SCH (08:16)
[2018-08-09] MEDS ORDERED: TROUGH ORDER-PHARMACY XX ONE (09:00)
[2018-08-09 09:13] LABS: BASOPHILS % (AUTO) 0 % (0-10); EOSINOPHILS % (AUTO) 0 % (0-10); HEMATOCRIT 33 % (40-54); HEMOGLOBIN 10.7 G/DL (13.3-17.7); LYMPHOCYTES # (AUTO) 0.7 X 10^3 (1.0-4.0); LYMPHOCYTES % (AUTO) 5 % (12-44); MEAN CORPUSCULAR HEMOGLOBIN 30 PG (25-34); MEAN CORPUSCULAR HGB CONC 32 G/DL (32-36); MEAN CORPUSCULAR VOLUME 94 FL (80-99); MONOCYTES # (AUTO) 0.8 X 10^3 (0.0-1.0); MONOCYTES % (AUTO) 6 % (0-12); NEUTROPHILS # (AUTO) 12.5 X 10^3 (1.8-7.8); NEUTROPHILS % (AUTO) 89 % (42-75); PLATELET COUNT 303 10^3/uL (130-400); RED BLOOD COUNT 3.53 10^6/uL (4.35-5.85); RED CELL DISTRIBUTION WIDTH 14.8 % (10.0-14.5)
[2018-08-09 09:30] LABS: BAND NEUTROPHILS 3 %; HYPERSEGMENTED NEUT MODERATE; LYMPHOCYTES % (MANUAL) 3 %; MONOCYTES % (MANUAL) 8 %; NEUTROPHILS % (MANUAL) 86 %; RBC MORPH NORMAL; TOXIC GRANULATION/VACUOLAZATIO 2+
[2018-08-09 09:36] LABS: ALBUMIN 3.2 GM/DL (3.2-4.5); BILIRUBIN,TOTAL 0.2 MG/DL (0.1-1.0); CALCIUM 8.9 MG/DL (8.5-10.1); CREATININE SERUM 2.79 MG/DL (0.60-1.30); POTASSIUM 4.4 MMOL/L (3.6-5.0); TOTAL PROTEIN 6.9 GM/DL (6.4-8.2)
[2018-08-09] MEDS: VANCOMYCIN 1500 MG/NS 500 ML IVPB IV SCH ×2 (09:42)
--- NOTE | 2018-08-09 10:49 | Progress Note-Hospitalist ---
Subjective HPI/CC On Admission Date Seen by Provider: Aug 09, 2018 Time Seen by Provider: 09:45 CC: Right knee pain with effusion HPI: This is an 83-year-old white male clinic patient of Dr. 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 Patient was found to have a warm right knee with effusion that was tapped and fluid was analyzed showing uric acid crystals with elevated white count and sedimentation rate that he did not have any fever or anything to suggest a septic knee so is placed in observation gentle IV fluids initiated and plan for inpatient rehabilitation admission. All of his home meds will be reviewed and reconciled and restarted. He does see a middle school football coach in [place]. Subjective/Events-last exam Patient is doing well and looking forward to getting up getting a shower and shaving. Knee is getting better but he still not very ambulatory without assistance. Review of Systems Musculoskeletal: leg pain Focused Exam Lactate Level 08/06/18 11:06: Lactic Acid Level 0.81 Objective Exam Vital Signs Vital Signs Date Time Temp Pulse Resp B/P (MAP) Pulse Ox O2 Delivery O2 Flow Rate FiO2 08/09/18 08:01 97.9 70 20 157/83 (107) 92 Nasal Cannula 1.00 Capillary Refill : Less Than 3 Seconds General Appearance: No Apparent Distress, WD/WN HEENT: Normal ENT Inspection Neck: Normal Inspection, Non Tender, Supple Respiratory: Lungs Clear, Normal Breath Sounds, No Accessory Muscle Use, No Respiratory Distress Cardiovascular: No Gallop, Bradycardia, Systolic Murmur Gastrointestinal: No Organomegaly, Non Tender, Soft Rectal: Deferred Back: Normal Inspection, No CVA Tenderness, No Vertebral Tenderness Extremity: Pedal Edema, Other (Right leg with an effusion) Neurologic/Psychiatric: Alert, Oriented x3, No Motor/Sensory Deficits, Normal Mood/Affect Results/Procedures Lab Laboratory Tests 08/09/18 09:10 Patient resulted labs reviewed. Assessment/Plan Assessment and Plan Assess & Plan/Chief Complaint 1. Acute crystalline-induced gouty arthritis right knee improving on prednisone -blood work today does show toxic granulations he continues on vancomycin but the trough is high. 2. Elevated white count today most likely secondary to the steroids. 3. Hypertension good control 4. Deconditioning we'll most likely require inpatient rehabilitation for strengthening and ambulation. 5. Since aspirations are culture negative will consider discontinuing antibiotics. 6. Chronic renal failure stage IV-stable will need to continue to monitor the vancomycin closely and in fact I might go ahead and discontinue that considering that cultures are negative 7. Bradycardia with systolic murmur we'll check an EKG today Clinical Quality Measures DVT/VTE Risk/Contraindication: Risk Factor Score Per Nursin RFS Level Per Nursing on Admit: 4+=Very High KALI DELACRUZ MD Aug 09, 2018 10:49
[2018-08-09] MEDS: predniSONE 20 MG TAB PO SCH (11:19)
--- NOTE | 2018-08-09 12:34 | Consultation-Cardiology ---
HPI-Cardiology Cardiology Consultation: Date of Consultation 08/09/18 Time Seen by a Provider: 12:30 Date of Admission 10/05/18 Attending Physician Madison Lees DO Admitting Physician Taz Monge MD Consulting Physician ADRIAN GOODEN MD, MA, FACP, FACC, FSCAI, CCDS Physician requesting consult: Dr Sumner Primary vacuum cooker operator: Dr Ji HPI: Chief Complaint: Reason for consultation: Abnormal ECG 83 yo man admitted to the [facility] on 08/05/18 for R knee pain due to gouty arthritis. That has been treated and is improving. He was noted to have a somewhat irreg pulse this am. Dr Sumner ordered ECG that showed PVCs and repol abn. Dr Sumner then asked us to see him in consult. He denies cp or palp or syncope. He has chronic exertional shortness of breath. He denies ankle swelling Review of Systems-Cardiology Review of Systems Constitutional: malaise; No weight loss, No weight gain Eyes: No vision change Ears/Nose/Throat: No ear discharge, No nasal drainage, No recent hearing loss Respiratory: As described under HPI Cardiovascular: As described under HPI Gastrointestinal: No constipation, No diarrhea, No nausea, No vomiting Genitourinary: No dysuria, No hematuria Musculoskeletal: back pain (chronic), joint pain (admitted with R knee pain) Skin: No rash on exposed areas, No ulcerations on exposed areas Psychiatric/Neurological: No seizure, No focal weakness, No syncope Hematologic: No bleeding abnormalities All Other Systems Reviewed Negative Unless Noted: Yes [id number] Hx Patient Social History Marrital Status: Employed/Student: retired Alcohol Use: Denies Use Recreational Drug Use: No Smoking Status: Never a Smoker 2nd Hand Smoke Exposure: No Recent Foreign Travel: No Recent Infectious Disease Expo: No Hospitalization with Isolation: Denies Physical Abuse Screen: No Sexual Abuse: No Immunizations Up To Date Date of Pneumonia Vaccine: Jul 22, 2018 Date of Influenza Vaccine: Jul 22, 2018 Past Medical History PMH As described under Assessment. Family Medical History Family History: Arthritis 19 FATHER, Onset:Unknown Dementia 19 MOTHER, Onset:Unknown FH: colon cancer 19 FATHER, Onset:Unknown FH: emphysema 19 MOTHER, Onset:Unknown Allergies and Home Medications Allergies Coded Allergies: No Known Drug Allergies (Unverified , 01/31/15) Home Medications Allopurinol 100 Mg Tablet, 100 MG PO DAILY, (Reported) Amlodipine Besylate 10 Mg Tablet, 10 MG PO DAILY, (Reported) Aspirin 81 Mg Tablet.dr, 81 MG PO DAILY, (Reported) Bethanechol Chloride 50 Mg Tablet, 50 MG PO BID, (Reported) Calcitriol 0.25 Mcg Capsule, 0.25 MCG PO DAILY, (Reported) Carboxymethylcellulose Sodium 15 Ml Drops, 1-2 DROPS OU TID PRN for DRY EYES, ( Reported) Finasteride 5 Mg Tablet, 5 MG PO DAILY, (Reported) Furosemide 20 Mg Tablet, 60 MG PO DAILY, (Reported) TAKES 3 (20MG) TABLETS Metoprolol Succinate 25 Mg Tab.er.24h, 25 MG PO DAILY, (Reported) Tamsulosin HCl 0.4 Mg Cap.er.24h, 0.4 MG PO 1730, (Reported) Patient Home Medication List Home Medication List Reviewed: Yes Physical Exam-Cardiology Physical Exam Vital Signs/I&O 08/09/18 08/09/18 08:00 08:01 Temp 97.9 Pulse 70 Resp 20 B/P (MAP) 157/83 (107) Pulse Ox 93 92 O2 Delivery Nasal Cannula Nasal Cannula O2 Flow Rate 1.00 1.00 08/09/18 00:00 Intake Total 2335 ml Balance 2335 ml Capillary Refill : Less Than 3 Seconds Constitutional: AAO x 3, well-developed, well-nourished HEENT: EOMI, hearing is well preserved; No xanthelasmas are seen Neck: carotid pulses are 2 + bilaterally, with good upstrokes Respiratory: No accessory muscle use; lungs clear to percussion, lungs clear to auscultation Cardiovascular: regular rate-rhythm, S1 and S2, systolic murmur (soft JOSE at card base) Gastrointestinal: No tender; soft; No guarding, No rebound; audible bowel sounds Extremities: No clubbing, No cyanosis, No significant edema Neurologic/Psychiatric: oriented x 3, other (moves all limbs equally), grossly intact Skin: No rash on exposed areas, No ulcerations on exposed areas Data Review Labs Laboratory Tests 08/09/18 09:10: White Blood Count 14.0H, Red Blood Count 3.53L, Hemoglobin 10.7L, Hematocrit 33L , Mean Corpuscular Volume 94, Mean Corpuscular Hemoglobin 30, Mean Corpuscular Hemoglobin Concent 32, Red Cell Distribution Width 14.8H, Platelet Count 303, Mean Platelet Volume 10.0, Neutrophils (%) (Auto) 89H, Lymphocytes (%) (Auto) 5L , Monocytes (%) (Auto) 6, Eosinophils (%) (Auto) 0, Basophils (%) (Auto) 0, Neutrophils # (Auto) 12.5H, Lymphocytes # (Auto) 0.7L, Monocytes # (Auto) 0.8, Eosinophils # (Auto) 0.0, Basophils # (Auto) 0.0, Neutrophils % (Manual) 86, Lymphocytes % (Manual) 3, Monocytes % (Manual) 8, Band Neutrophils 3, Hypersegmented Neutrophils MODERATE, Toxic Granulation 2+, Blood Morphology Comment NORMAL, Sodium Level 138, Potassium Level 4.4, Chloride Level 111H, Carbon Dioxide Level 15L, Anion Gap 12, Blood Urea Nitrogen 65H, Creatinine 2.79H, Estimat Glomerular Filtration Rate 22, BUN/Creatinine Ratio 23, Glucose Level 335H, Calcium Level 8.9, Corrected Calcium 9.5, Total Bilirubin 0.2, Aspartate Amino Transf (AST/SGOT) 10, Alanine Aminotransferase (ALT/SGPT) 11, Alkaline Phosphatase 65, Total Protein 6.9, Albumin 3.2, Vancomycin Level Trough 25.6*H 08/09/18 12:15: Troponin I 1.20*H Microbiology 08/05/18 Blood Culture - Preliminary, Resulted No growth 08/06/18 Gram Stain - Final, Complete 08/06/18 Body Fluid Culture - Final, Complete No growth Laboratory Tests 08/08/18 05:42 08/09/18 09:10 A/P-Cardiology Assessment/Admission Diagnosis Elevated troponin: silent NSTEMI vs related to renal failure Abnormal ECG on 08/09/18 showing NSR with occ PVC and with repolarization abnormality of undetermined etiology Gouty arthritis with R knee effusion Dyspnea on exertion, chronic, bradycardia, EKG showed sinus rhythm with occasional atrial premature contractions, poor R-wave progression in the anterior leads. Nonspecific T wave abnormality. No chest pain was reported. Planning to evaluate echocardiogram. 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 I explained our findings and our treatment plan and its rationale * I also discussed his case with Dr Sumner on the phone Clinical Quality Measures DVT/VTE Risk/Contraindication: Risk Factor Score Per Nursin RFS Level Per Nursing on Admit: 4+=Very High ADRIAN GOODEN MD FACP [facility] CCDS Aug 09, 2018 12:34
[2018-08-09] MEDS ORDERED: CLOPIDOGREL 75 MG (PLAVIX) TABLET PO ONE (12:45)
[2018-08-09 16:00] VITALS: BP 184/85
[2018-08-09] MEDS: TAMSULOSIN 0.4 MG (FLOMAX) CAP PO SCH (16:47)
[2018-08-09] MEDS: ATORVASTATIN 40 MG (LIPITOR) TABLET PO SCH (20:16)
[2018-08-09] MEDS ORDERED: TROUGH ORDER-PHARMACY XX NR (21:00)
[2018-08-09] MEDS ORDERED: VANCOMYCIN 750 MG/NS 250 ML IVPB IV SCH ×2 (22:00)
[2018-08-10 00:12] VITALS: BP 168/72
[2018-08-10] MEDS: BETHANECHOL 25 MG (URECHOLINE) TAB PO SCH ×2 (06:27→16:07)
[2018-08-10] MEDS: CATHETER FLUSH 10 ML SYR IV PRN (06:29)
[2018-08-10 06:32] LABS: BASOPHILS % (AUTO) 0 % (0-10); EOSINOPHILS % (AUTO) 0 % (0-10); HEMATOCRIT 35 % (40-54); HEMOGLOBIN 11.5 G/DL (13.3-17.7); LYMPHOCYTES # (AUTO) 1.3 X 10^3 (1.0-4.0); LYMPHOCYTES % (AUTO) 8 % (12-44); MEAN CORPUSCULAR HEMOGLOBIN 31 PG (25-34); MEAN CORPUSCULAR HGB CONC 33 G/DL (32-36); MEAN CORPUSCULAR VOLUME 94 FL (80-99); MEAN PLATELET VOLUME 10.3 FL (7.4-10.4); MONOCYTES # (AUTO) 1.6 X 10^3 (0.0-1.0); MONOCYTES % (AUTO) 10 % (0-12); NEUTROPHILS # (AUTO) 13.2 X 10^3 (1.8-7.8); NEUTROPHILS % (AUTO) 82 % (42-75); PLATELET COUNT 390 10^3/uL (130-400); RED BLOOD COUNT 3.74 10^6/uL (4.35-5.85); RED CELL DISTRIBUTION WIDTH 15.1 % (10.0-14.5)
[2018-08-10 07:17] LABS: ALBUMIN 3.4 GM/DL (3.2-4.5); BILIRUBIN,TOTAL 0.3 MG/DL (0.1-1.0); CALCIUM 9.3 MG/DL (8.5-10.1); CREATININE SERUM 2.72 MG/DL (0.60-1.30); POTASSIUM 4.6 MMOL/L (3.6-5.0); TOTAL PROTEIN 7.2 GM/DL (6.4-8.2)
[2018-08-10 08:20] VITALS: BP 132/88
--- NOTE | 2018-08-10 08:45 | Cardiology Progress Note ---
Subjective Date Seen by Provider: Aug 10, 2018 Time Seen by Provider: 08:40 Subjective/Events-last exam Patient is in bed, denies any chest pain or dyspnea at this time. Review of Systems General: No Night Sweats, No Fatigue, No Malaise HEENT: No Visual Changes, No Dysphasia, No Sore Throat Pulmonary: Dyspnea; No Cough Cardiovascular: Edema; No: Chest Pain, Palpitations, Paroxysmal Noc. Dyspnea Gastrointestinal: No: Nausea, Vomiting, Abdominal Pain Genitourinary: No Dysuria, No Frequency Musculoskeletal: No: neck pain, back pain Neurological: Weakness; No: Numbness, Change in speech, Confusion Objective-Cardiology Exam Last Set of Vital Signs Vital Signs 08/10/18 08:20 Temp 97.3 Pulse 58 Resp 18 B/P (MAP) 132/88 (103) Pulse Ox 92 O2 Delivery Nasal Cannula O2 Flow Rate 1.00 Capillary Refill : Less Than 3 Seconds I&O Intake and Output 08/10/18 00:00 Intake Total 2210 ml Balance 2210 ml Intake Oral 2160 ml IV Total 50 ml # Voids 6 General: Alert, Oriented X3, Cooperative HEENT: Atraumatic, PERRLA Lungs: Clear to Auscultation, Normal Air Movement Heart: Regular Rate, Normal S1, Normal S2, No Murmurs Abdomen: Normal Bowel Sounds, Soft, No Tenderness, No Hepatosplenomegaly, No Masses Extremities: No Clubbing, No Cyanosis, No Edema, Normal Pulses, No Tenderness/ Swelling Skin: No Rashes, No Breakdown, No Significant Lesion Neuro: Normal Gait, Normal Speech, Strength at 5/5 X4 Ext, Normal Tone, Sensation Intact Psych/Mental Status: Mental Status NL, Mood NL Results Lab Laboratory Tests 08/09/18 09:10 08/10/18 05:22 A/P-Cardiology Admission Diagnosis Elevated troponin Abnormal EKG HTN Dyspnea [place] Assessment/Plan Elevated troponin: silent NSTEMI vs related to renal failure. Discussed management plan with patient, will start IVF's today. Encouraged to increase fluids. Planning for LHC tomorrow or Friday if renal function allows for it. Abnormal ECG on 08/09/18 showing NSR with occ PVC and with repolarization abnormality of undetermined etiology, continue to monitor. Gouty arthritis with R knee effusion, management per PCP Dyspnea on exertion, chronic, bradycardia, EKG showed sinus rhythm with occasional atrial premature contractions, poor R-wave progression in the anterior leads. Nonspecific T wave abnormality. No chest pain was reported. Planning to evaluate echocardiogram. H/o asymptomatic sinus bradycardia Hypertension- controlled, continue to monitor BP/HR. 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
[2018-08-10] MEDS ORDERED: NS IV 1000 ML 1,000 ML ONE (08:49)
[2018-08-10] MEDS: NS IV 1000 ML 1,000 ML IV SCH ×2 (08:56→17:31)
[2018-08-10] MEDS: ENOXAPARIN 30 MG/0.3 ML (LOVENOX) SYR SC SCH (08:56)
[2018-08-10] MEDS: cefTRIAXone FOR IV USE 2,000 MG in NS (IVPB) 50 ML IV SCH (08:56)
[2018-08-10] MEDS: amLODIPine 10 MG (NORVASC) TAB PO SCH (08:57)
[2018-08-10] MEDS: ASPIRIN 81 MG CHEW (CHILDREN'S ASA) PO SCH (08:57)
[2018-08-10] MEDS: CLOPIDOGREL 75 MG (PLAVIX) TABLET PO SCH (08:57)
[2018-08-10] MEDS: CALCITRIOL 0.25 MCG (ROCALTROL) CAPSULE PO SCH (09:00)
[2018-08-10] MEDS: FINASTERIDE (PROSCAR) 5 MG TAB PO SCH (09:00)
[2018-08-10] MEDS ORDERED: TROUGH ORDER-PHARMACY XX NR (09:06)
--- NOTE | 2018-08-10 09:29 | Cardiology Progress Note ---
Subjective Date Seen by Provider: Aug 10, 2018 Time Seen by Provider: 09:17 Subjective/Events-last exam Patient is in bed, denied any chest pain, no palpitations, still having knee pain, events since admission reviewed Review of Systems General: No Chills, No Night Sweats, No Fatigue, No Malaise, No Appetite, No Other HEENT: No Head Aches, No Visual Changes, No Eye Pain, No Ear Pain, No Dysphasia , No Sinus Congestion, No Post Nasal Drip, No Sore Throat, No Other Pulmonary: Dyspnea; No Cough, No Pleuritic Chest Pain, No Other Cardiovascular: Edema; No: Chest Pain, Palpitations, Orthopnea, Paroxysmal Noc. Dyspnea, Lt Headedness, Other Objective-Cardiology Exam Last Set of Vital Signs Vital Signs 08/10/18 08:20 Temp 97.3 Pulse 58 Resp 18 B/P (MAP) 132/88 (103) Pulse Ox 92 O2 Delivery Nasal Cannula O2 Flow Rate 1.00 Capillary Refill : Less Than 3 Seconds I&O Intake and Output 08/09/18 23:59 Intake Total 2210 ml Balance 2210 ml Intake Oral 2160 ml IV Total 50 ml # Voids 6 General: Alert, Oriented X3, Cooperative HEENT: Atraumatic, PERRLA Lungs: Clear to Auscultation, Normal Air Movement Heart: Regular Rate, Normal S1, Normal S2, No Murmurs Abdomen: Normal Bowel Sounds, Soft, No Tenderness, No Hepatosplenomegaly, No Masses Extremities: No Clubbing, No Cyanosis, No Edema, Normal Pulses, No Tenderness/ Swelling Skin: No Rashes, No Breakdown, No Significant Lesion Neuro: Normal Gait, Normal Speech, Strength at 5/5 X4 Ext, Normal Tone, Sensation Intact Psych/Mental Status: Mental Status NL, Mood NL Results Lab Laboratory Tests 08/10/18 05:22 A/P-Cardiology Admission Diagnosis Elevated troponin Abnormal EKG HTN Dyspnea [place] Assessment/Plan Elevated troponin: silent NSTEMI vs related to renal failure. Discussed management plan with patient, will start IVF's today. Encouraged to increase fluids. Planning for LHC tomorrow or Friday if renal function allows for it. Abnormal ECG on 08/09/18 showing NSR with occ PVC and with repolarization abnormality of undetermined etiology, continue to monitor. Gouty arthritis with R knee effusion, management per PCP Dyspnea on exertion, chronic, bradycardia, EKG showed sinus rhythm with occasional atrial premature contractions, poor R-wave progression in the anterior leads. Nonspecific T wave abnormality. No chest pain was reported. Planning to evaluate echocardiogram. H/o asymptomatic sinus bradycardia Hypertension- controlled, continue to monitor BP/HR. 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
--- NOTE | 2018-08-10 09:49 | Physical Therapy Daily Note ---
PT Daily Note-Current Subjective Pt was awake in bed watching tv with his when PT arrived. Pt agreed to get up and walk for PT. Pain Numeric Pain Scale: 0-No Pain Location: No Pain Reported Mental Status Patient Orientation: Normal For Age Attachments: Oxygen, IV Transfers Functional [place] Measure 0=Not Assessed/NA 4=Minimal Assistance 1=Total Assistance 5=Supervision or Setup 2=Maximal Assistance 6=Modified [place] 3=Moderate Assistance 7=Complete IndependenceIRFPAI Quality Coding Scale 6 Independent with activity with or without an assistive device 5 Patient requires set up or clean up by helper. Patient completes activity by themselves 4 Supervision or touching assist (CGA). [place] provide cues , steadying assist 3 The helper provides less than half the effort to complete the activity 2 The helper provides more than half the effort to complete the activity 1 Dependent. The helper does all the effort to complete an activity 7 Patient refused to complete or attempt activity 9 The patient did not perform the activity before the current illness or injury 88 Not attempted due to Medical conditions or safety concerns Transfers (B, C, W/C) (FIM): 4 Scootin Rollin Supine to/from Sit: 4 Sit to/from Stand: 5 Weight Bearing Right Lower Extremity: Right Weight Bearing/Tolerated Left Lower Extremity: Left Full Weight Bearing Gait Training Gait (FIM): 4 Distance (FIM): 3=150 ft Distance: 150' Gait Level of Assist: 4 Gait Persons Needed: 1 Gait Assistive Device: FWW Exercises Seated Therapy Exercises: Long arc quads, Hip flexion Seated Reps: 20 Assessment Pt was able to ambulate for 150' with a FWW and required CGA. Patient did not show signs of fatigue but was cued to to picker tender feet when walking. Pt currently has poor toe clearance and states that he has trouble picking his feet up due to his gout. Pt returned to room and performed seated marching and leg kicks when he returned to his chair in his room. PT Mcfp Goals Cord Splicer Goals PT Cord Splicer Goals Time Frame: Aug 15, 2018 Transfers (B,C,W/C) (FIM): 5 Gait (FIM): 2 Gait distance (FIM): 9=007-17 ft Distance: 50 Gait Level of Assist: 4 Gait Assistive Device: FWW PT Plan Problem List Problem List: Activity Tolerance, Functional Strength, Safety, Balance, Gait, Bed Mobility Treatment/Plan Treatment Plan: Continue Plan of Care Treatment Plan: Bed Mobility, Education, Functional Activity Eugenie, Functional Strength, Gait, Safety, Therapeutic Exercise, Transfers Treatment Duration: Aug 15, 2018 Frequency: 6 times per week Estimated Hrs Per Day: .25 hour per day Patient and/or Family Agrees t: Yes Time/GCodes Time In: 903 Time Out: 926 Total Billed Treatment Time: 23 Total Billed Treatment 1 visit GT - 13' EX - 10' ACACIA HENRIQUEZ PT Aug 10, 2018 09:49
[2018-08-10 09:57] LABS: CALCIUM 9.2 MG/DL (8.5-10.1); CREATININE SERUM 2.57 MG/DL (0.60-1.30); POTASSIUM 4.1 MMOL/L (3.6-5.0)
--- NOTE | 2018-08-10 10:57 | Occupational Ther Daily Note ---
OT Current Status-Daily Note Subjective Pt alert, sitting in recliner. Visitor present. Pt unable to find his R hearing aide. Pt agrees to therapy. No c/o pain at this time. Mental Status/Objective Patient Orientation: Person, Place, Time, Situation Functional [place] Measure 0=Not Assessed/NA 4=Minimal Assistance 1=Total Assistance 5=Supervision or Setup 2=Maximal Assistance 6=Modified [place] 3=Moderate Assistance 7=Complete [place] Attachments: IV, Oxygen Other Treatment Pt declines donning clothing or taking sponge bath. Pt stated that he had a shower yesterday, didn't need anything today then stated that he was going to wait to put on underwear until he was going to the bathroom. OT discussed with pt about how he got dressed at home. Pt stated that he only wore sweats because he couldn't bend down to feet very well. He has assist to don his stockings to prevent swelling and blood clots. Unable to find theraband in room. Pt was able to demonstrate theraband exercises without theraband, 15 reps 2 sets. After therapy, pt sitting in recliner with call light/phone in reach. All needs met in room. Education OT Patient Education: Exercise program, Purpose of tx/functional activities Teaching Recipient: Patient Teaching Methods: Demonstration Response to Teaching: Verbalize Understanding, Return Demonstration OT Short Term Goals Short Term Goals 1=Demonstrate adherence to instructed precautions during ADL tasks. 2=Patient will verbalize/demonstrate understanding of assistive devices/ modifications for ADL. 3=Patient will improve strength/tolerance for activity to enable patient to perform ADL's. OT Mail Sorting Supervisor Goals Halfway Goals Time Frame: Aug 13, 2018 Eating (FIM): 6 Grooming(FIM): 6 Bathing(FIM): 5 Upper Body Dressing(FIM): 5 Lower Body Dressing(FIM): 5 Toileting(FIM): 6 Toilet/Commode Transfer(FIM): 6 Shower Transfer(FIM): 5 Additional Goals: 1-Demonstrate ADL Tasks, 2-Verbalize Understanding, 3- ImproveStrength/Eugenie 1=Demonstrate adherence to instructed precautions during ADL tasks. 2=Patient will verbalize/demonstrate understanding of assistive devices/ modifications for ADL. 3=Patient will improve strength/tolerance for activity to enable patient to perform ADL's. OT Education/Plan Problem List/Assessment Pt would benefit from skilled OT to increase his independence in self care to allow him to return home safety. Discharge Recommendations Plan/Recommendations: Continue POC Treatment Plan/Plan of Care Patient would benefit from OT for education, treatment and training to promote independence in ADL's, mobility, safety and/or upper extremity function for ADL' s. Plan of Care: ADL Retraining, Functional Mobility, UE Funct Exercise/Act, UE Neuromus Re-Ed/Coord Treatment Duration: Aug 13, 2018 Frequency: 5 times per week Estimated Hrs Per Day: .5 hour per day Agreement: Yes Rehab Potential: Fair Time/GCodes Start Time: 10:33 Stop Time: 10:51 Total Time Billed (hr/min): 18 Billed Treatment Time 1 visit-EX 1 (18 min) TAWANDA BRANDON Aug 10, 2018 10:57
[2018-08-10] MEDS: predniSONE 20 MG TAB PO SCH (11:21)
[2018-08-10] MEDS ORDERED: VANCOMYCIN 1500 MG/NS 500 ML IVPB IV SCH ×2 (12:00)
--- NOTE | 2018-08-10 13:46 | Progress Note-Hospitalist ---
Subjective HPI/CC On Admission Date Seen by Provider: Aug 10, 2018 Time Seen by Provider: 09:15 CC: Right knee pain with effusion HPI: This is an 83-year-old white male clinic patient of Dr. 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 Patient was found to have a warm right knee with effusion that was tapped and fluid was analyzed showing uric acid crystals with elevated white count and sedimentation rate that he did not have any fever or anything to suggest a septic knee so is placed in observation gentle IV fluids initiated and plan for inpatient rehabilitation admission. All of his home meds will be reviewed and reconciled and restarted. He does see a progressive care nurse in [place]. Subjective/Events-last exam Pt reports feeling tired from PT. He otherwise has not complaints. Undetrstands plan to increase IVF to hopefully help lower creatinine for possible cath tomorrow. Objective Exam Vital Signs Vital Signs Date Time Temp Pulse Resp B/P (MAP) Pulse Ox O2 Delivery O2 Flow Rate FiO2 08/10/18 08:20 97.3 58 18 132/88 (103) 92 Nasal Cannula 1.00 Capillary Refill : Less Than 3 Seconds General Appearance: No Apparent Distress, WD/WN Respiratory: Lungs Clear, No Respiratory Distress Cardiovascular: Regular Rate, Rhythm, No Murmur Gastrointestinal: Normal Bowel Sounds Neurologic/Psychiatric: Alert, Oriented x3 Results/Procedures Lab Laboratory Tests 08/10/18 05:22 08/10/18 09:25 Patient resulted labs reviewed. Assessment/Plan Assessment and Plan Assess & Plan/Chief Complaint NSTEMI Diagnosis/Problems Diagnosis/Problems (1) Gouty arthritis Assessment & Plan: History of previous episodes Cultures negative from aspirate Will DC abx Continue Steroids (2) NSTEMI (non-ST elevated myocardial infarction) Assessment & Plan: Plan for cath eventually IVF for renal failure Recheck in AM Cardiology consulted- appreciate recs (3) Hypertension Status: Chronic Assessment & Plan: Relatively well controlled Trend Qualifiers: Hypertension type: essential hypertension Qualified Codes: I10 - Essential (primary) hypertension (4) Renal failure (ARF), acute on chronic Status: Acute Assessment & Plan: Creatinine mildly improved from admission Continue IVF Qualifiers: Acute renal failure type: unspecified Chronic kidney disease stage: unspecified stage Qualified Codes: N17.9 - Acute kidney failure, unspecified; N18.9 - Chronic kidney disease, unspecified (5) Debility Status: Acute Assessment & Plan: PT/OT Will likely need SNF at [place] Clinical Quality Measures DVT/VTE Risk/Contraindication: Risk Factor Score Per Nursin RFS Level Per Nursing on Admit: 4+=Very High HILL SOLORZANO MD Aug 10, 2018 1:46 pm
[2018-08-10 16:00] VITALS: BP 158/84
[2018-08-10] MEDS: LACTOBACILLUS ACIDOPHILUS (PROBIOTIC) CAPSULE PO SCH (16:07)
[2018-08-10] MEDS: TAMSULOSIN 0.4 MG (FLOMAX) CAP PO SCH (16:07)
[2018-08-10 19:20] VITALS: BP 154/82
[2018-08-10] MEDS: ATORVASTATIN 40 MG (LIPITOR) TABLET PO SCH (20:31)
[2018-08-10 23:50] VITALS: BP 159/78
[2018-08-11] MEDS: NS IV 1000 ML 1,000 ML IV SCH ×4 (00:13→21:21)
[2018-08-11] MEDS: LACTOBACILLUS ACIDOPHILUS (PROBIOTIC) CAPSULE PO SCH ×3 (05:20→16:08)
[2018-08-11] MEDS: BETHANECHOL 25 MG (URECHOLINE) TAB PO SCH ×2 (05:20→16:08)
[2018-08-11 05:51] LABS: BASOPHILS % (AUTO) 0 % (0-10); EOSINOPHILS % (AUTO) 0 % (0-10); HEMATOCRIT 34 % (40-54); HEMOGLOBIN 11.1 G/DL (13.3-17.7); LYMPHOCYTES # (AUTO) 1.2 X 10^3 (1.0-4.0); LYMPHOCYTES % (AUTO) 7 % (12-44); MEAN CORPUSCULAR HEMOGLOBIN 30 PG (25-34); MEAN CORPUSCULAR HGB CONC 32 G/DL (32-36); MEAN CORPUSCULAR VOLUME 93 FL (80-99); MEAN PLATELET VOLUME 10.1 FL (7.4-10.4); MONOCYTES # (AUTO) 2.3 X 10^3 (0.0-1.0); MONOCYTES % (AUTO) 13 % (0-12); NEUTROPHILS # (AUTO) 14.6 X 10^3 (1.8-7.8); NEUTROPHILS % (AUTO) 81 % (42-75); PLATELET COUNT 329 10^3/uL (130-400); RED BLOOD COUNT 3.68 10^6/uL (4.35-5.85); RED CELL DISTRIBUTION WIDTH 14.9 % (10.0-14.5); WHITE BLOOD COUNT 18.2 10^3/uL (4.3-11.0)
[2018-08-11 06:20] LABS: ALBUMIN 3.1 GM/DL (3.2-4.5); BILIRUBIN,TOTAL 0.4 MG/DL (0.1-1.0); CALCIUM 8.7 MG/DL (8.5-10.1); CREATININE SERUM 2.28 MG/DL (0.60-1.30); POTASSIUM 4.7 MMOL/L (3.6-5.0); TOTAL PROTEIN 6.5 GM/DL (6.4-8.2)
[2018-08-11 08:05] VITALS: BP 161/78
--- NOTE | 2018-08-11 08:21 | Cardiology Progress Note ---
Subjective Date Seen by Provider: Aug 11, 2018 Time Seen by Provider: 08:19 Subjective/Events-last exam Patient is sitting in a chair, feeling better. No new complaint. Denied any chest pain. No palpitation. Review of Systems General: No Chills, No Night Sweats, No Fatigue, No Malaise, No Appetite, No Other HEENT: No Head Aches, No Visual Changes, No Eye Pain, No Ear Pain, No Dysphasia , No Sinus Congestion, No Post Nasal Drip, No Sore Throat, No Other Pulmonary: Dyspnea; No Cough, No Pleuritic Chest Pain, No Other Cardiovascular: Edema; No: Chest Pain, Palpitations, Orthopnea, Paroxysmal Noc. Dyspnea, Lt Headedness, Other Objective-Cardiology Exam Last Set of Vital Signs Vital Signs 08/11/18 08:05 Temp 96.6 Pulse 58 Resp 20 B/P (MAP) 161/78 (105) Pulse Ox 92 O2 Delivery Nasal Cannula O2 Flow Rate 1.00 Capillary Refill : Less Than 3 Seconds I&O Intake and Output 08/11/18 00:00 Intake Total 2870 ml Balance 2870 ml Intake Oral 2870 ml # Voids 6 # Bowel Movements 1 General: Alert, Oriented X3, Cooperative HEENT: Atraumatic, PERRLA Neck: Supple, No JVD Lungs: Clear to Auscultation, Normal Air Movement Heart: Regular Rate, Normal S1, Normal S2, No Murmurs Abdomen: Normal Bowel Sounds, Soft, No Tenderness, No Hepatosplenomegaly, No Masses Extremities: No Clubbing, No Cyanosis, No Edema, Normal Pulses, No Tenderness/ Swelling Skin: No Rashes, No Breakdown, No Significant Lesion Neuro: Normal Gait, Normal Speech, Strength at 5/5 X4 Ext, Normal Tone, Sensation Intact Psych/Mental Status: Mental Status NL, Mood NL Results Lab Laboratory Tests 08/10/18 09:25 08/11/18 05:15 A/P-Cardiology Admission Diagnosis Elevated troponin Abnormal EKG HTN Dyspnea [place] Assessment/Plan Elevated troponin: silent NSTEMI vs related to renal failure. Discussed management plan with patient, will start IVF's today. Encouraged to increase fluids. Planning for LHC tomorrow, continue on aggressive hydration, educated on increasing fluid intake. Abnormal ECG on 08/09/18 showing NSR with occ PVC and with repolarization abnormality of undetermined etiology, continue to monitor. Gouty arthritis with R knee effusion, management per PCP Dyspnea on exertion, chronic, bradycardia, EKG showed sinus rhythm with occasional atrial premature contractions, poor R-wave progression in the anterior leads. Nonspecific T wave abnormality. No chest pain was reported. Planning to evaluate echocardiogram. H/o asymptomatic sinus bradycardia Hypertension- controlled, continue to monitor BP/HR. 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
--- NOTE | 2018-08-11 08:28 | Progress Note-Hospitalist ---
Subjective HPI/CC On Admission Date Seen by Provider: Aug 11, 2018 Time Seen by Provider: 08:23 CC: Right knee pain with effusion HPI: This is an 83-year-old white male clinic patient of Dr. 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 Patient was found to have a warm right knee with effusion that was tapped and fluid was analyzed showing uric acid crystals with elevated white count and sedimentation rate that he did not have any fever or anything to suggest a septic knee so is placed in observation gentle IV fluids initiated and plan for inpatient rehabilitation admission. All of his home meds will be reviewed and reconciled and restarted. He does see a transitions manager rn in [place]. Subjective/Events-last exam Pt reports doing well. Knee slightly more sore since working with PT. Objective Exam Vital Signs Vital Signs Date Time Temp Pulse Resp B/P (MAP) Pulse Ox O2 Delivery O2 Flow Rate FiO2 08/11/18 08:05 96.6 58 20 161/78 (105) 92 Nasal Cannula 1.00 Capillary Refill : Less Than 3 Seconds General Appearance: No Apparent Distress, WD/WN Respiratory: Lungs Clear, No Respiratory Distress Cardiovascular: Regular Rate, Rhythm, No Murmur Neurologic/Psychiatric: Alert, Oriented x3 Results/Procedures Lab Laboratory Tests 08/10/18 09:25 08/11/18 05:15 Patient resulted labs reviewed. Assessment/Plan Assessment and Plan Assess & Plan/Chief Complaint NSTEMI Diagnosis/Problems Diagnosis/Problems (1) NSTEMI (non-ST elevated myocardial infarction) Assessment & Plan: Plan for cath hopefully tomorrow IVF for renal failure Trend creatinine- goal less than 2.0 Unsure if will get there given baseline CKD Cardiology consulted- appreciate recs (2) Gouty arthritis Assessment & Plan: History of previous episodes Cultures negative from aspirate Will DC abx Continue Steroids (3) Hypertension Status: Chronic Assessment & Plan: Relatively well controlled Trend Qualifiers: Hypertension type: essential hypertension Qualified Codes: I10 - Essential (primary) hypertension (4) Renal failure (ARF), acute on chronic Status: Acute Assessment & Plan: Creatinine improving Continue IVF Qualifiers: Acute renal failure type: unspecified Chronic kidney disease stage: unspecified stage Qualified Codes: N17.9 - Acute kidney failure, unspecified; N18.9 - Chronic kidney disease, unspecified (5) Debility Status: Acute Assessment & Plan: PT/OT Will likely need SNF at [place] IRU consulted Clinical Quality Measures DVT/VTE Risk/Contraindication: Risk Factor Score Per Nursin RFS Level Per Nursing on Admit: 4+=Very High HILL SOLORZANO MD Aug 11, 2018 8:28 am
[2018-08-11] MEDS: amLODIPine 10 MG (NORVASC) TAB PO SCH (08:38)
[2018-08-11] MEDS: CLOPIDOGREL 75 MG (PLAVIX) TABLET PO SCH (08:38)
[2018-08-11] MEDS: ASPIRIN 81 MG CHEW (CHILDREN'S ASA) PO SCH (08:38)
[2018-08-11] MEDS: CALCITRIOL 0.25 MCG (ROCALTROL) CAPSULE PO SCH (08:39)
[2018-08-11] MEDS: FINASTERIDE (PROSCAR) 5 MG TAB PO SCH (08:39)
[2018-08-11] MEDS: ENOXAPARIN 30 MG/0.3 ML (LOVENOX) SYR SC SCH (08:40)
[2018-08-11] MEDS ORDERED: FUROSEMIDE 40 MG/4 ML INJ (LASIX) IVP NR (11:00)
--- NOTE | 2018-08-11 11:22 | Physical Therapy Daily Note ---
PT Daily Note-Current Subjective Patient awake in bed watching tv with his when PT arrived. Pt initially refused to get up and walk but reluctantly agreed to PT. Pain Numeric Pain Scale: 5-Moderate Pain Mental Status Patient Orientation: Mumbles, Normal For Age Attachments: Oxygen, IV Transfers Functional [place] Measure 0=Not Assessed/NA 4=Minimal Assistance 1=Total Assistance 5=Supervision or Setup 2=Maximal Assistance 6=Modified [place] 3=Moderate Assistance 7=Complete IndependenceIRFPAI Quality Coding Scale 6 Independent with activity with or without an assistive device 5 Patient requires set up or clean up by helper. Patient completes activity by themselves 4 Supervision or touching assist (CGA). [place] provide cues , steadying assist 3 The helper provides less than half the effort to complete the activity 2 The helper provides more than half the effort to complete the activity 1 Dependent. The helper does all the effort to complete an activity 7 Patient refused to complete or attempt activity 9 The patient did not perform the activity before the current illness or injury 88 Not attempted due to Medical conditions or safety concerns Transfers (B, C, W/C) (FIM): 4 Scootin Rollin Supine to/from Sit: 5 Sit to/from Stand: 4 Weight Bearing Right Lower Extremity: Right Weight Bearing/Tolerated Left Lower Extremity: Left Full Weight Bearing Gait Training Gait (FIM): 2 Distance (FIM): 0=783-47 ft Distance: 75' Gait Level of Assist: 4 Gait Persons Needed: 1 Gait Assistive Device: FWW Exercises Supine Ex: Ankle pumps, Quad Set, Heel Slides, Straight leg raise Supine Reps: 10 Assessment Pt initially refused to get up to walk and performed LE exercises while in bed. Patient eventually agreed to walk after respiratory therapy and ICU NURSE took his vitals and returned 02 to 91.. Patients 02 level dropped to 85 and RT increased O2 to 4L. Patient was able to ambulate for 75' with FWW requiring CGA. Patient did not show signs of fatigue during ambulation with O2 at 6L of oxygen. Patient returned to chair in room and was not showing signs of distress. 02 output was reduced back to 4L when exiting room. PT Fci Goals Fci Goals PT Card Setter Goals Time Frame: Aug 15, 2018 Transfers (B,C,W/C) (FIM): 5 Gait (FIM): 2 Gait distance (FIM): 9=483-15 ft Distance: 50 Gait Level of Assist: 4 Gait Assistive Device: FWW PT Plan Problem List Problem List: Activity Tolerance, Functional Strength, Safety, Balance, Gait, Transfer, Bed Mobility, ROM Treatment/Plan Treatment Plan: Continue Plan of Care Treatment Plan: Bed Mobility, Education, Functional Activity Eugenie, Functional Strength, Gait, Safety, Therapeutic Exercise, Transfers Treatment Duration: Aug 15, 2018 Frequency: 6 times per week Estimated Hrs Per Day: .25 hour per day Patient and/or Family Agrees t: Yes Time/GCodes Time In: 1025 Time Out: 1051 Total Billed Treatment Time: 26 Total Billed Treatment 1 visit FA x 2 - 26' ACACIA HENRIQUEZ PT Aug 11, 2018 11:22
[2018-08-11] MEDS: predniSONE 20 MG TAB PO SCH (11:42)
--- NOTE | 2018-08-11 15:13 | Occupational Ther Daily Note ---
OT Current Status-Daily Note Subjective Pt seen in room, up in bed, agreeable to OT. No pain mentioned. Appearance Alert, cooperative Mental Status/Objective Functional [place] Measure 0=Not Assessed/NA 4=Minimal Assistance 1=Total Assistance 5=Supervision or Setup 2=Maximal Assistance 6=Modified [place] 3=Moderate Assistance 7=Complete [place] Other Treatment Pt on 4 l/min O2. Pt did 15 reps bilat UE ex without additional resistance but required recovery times between exercises due to being SOA. Pt educ pursed lip breathing, with cues and return demonstration. Pt encouraged to do hand ex to help mobilize edema in hands. Pt left up in bed, all needs met. Education OT Patient Education: Purpose of tx/functional activities, Other (pursed lip breathing) Teaching Recipient: Patient Teaching Methods: Demonstration, Discussion Response to Teaching: Verbalize Understanding, Return Demonstration, Reinforcement Needed OT Short Term Goals Short Term Goals 1=Demonstrate adherence to instructed precautions during ADL tasks. 2=Patient will verbalize/demonstrate understanding of assistive devices/ modifications for ADL. 3=Patient will improve strength/tolerance for activity to enable patient to perform ADL's. OT Custodial Goals Custodial Goals Time Frame: Aug 13, 2018 Eating (FIM): 6 Grooming(FIM): 6 Bathing(FIM): 5 Upper Body Dressing(FIM): 5 Lower Body Dressing(FIM): 5 Toileting(FIM): 6 Toilet/Commode Transfer(FIM): 6 Shower Transfer(FIM): 5 Additional Goals: 1-Demonstrate ADL Tasks, 2-Verbalize Understanding, 3- ImproveStrength/Eugenie 1=Demonstrate adherence to instructed precautions during ADL tasks. 2=Patient will verbalize/demonstrate understanding of assistive devices/ modifications for ADL. 3=Patient will improve strength/tolerance for activity to enable patient to perform ADL's. OT Education/Plan Problem List/Assessment Pt would benefit from skilled OT to increase his independence in self care to allow him to return home safety. Discharge Recommendations Plan/Recommendations: Continue POC Treatment Plan/Plan of Care Patient would benefit from OT for education, treatment and training to promote independence in ADL's, mobility, safety and/or upper extremity function for ADL' s. Plan of Care: ADL Retraining, Functional Mobility, UE Funct Exercise/Act, UE Neuromus Re-Ed/Coord Treatment Duration: Aug 13, 2018 Frequency: 5 times per week Estimated Hrs Per Day: .5 hour per day Agreement: Yes Rehab Potential: Fair Time/GCodes Start Time: 14:40 Stop Time: 14:55 Total Time Billed (hr/min): 15 Billed Treatment Time visit, 15 minutes exercise HARSHAL BOSE OT Aug 11, 2018 15:13
[2018-08-11] MEDS: TAMSULOSIN 0.4 MG (FLOMAX) CAP PO SCH (16:07)
[2018-08-11 16:13] VITALS: BP 150/78
[2018-08-11] MEDS: ATORVASTATIN 40 MG (LIPITOR) TABLET PO SCH (20:13)
[2018-08-11 20:30] VITALS: BP 160/82
[2018-08-12] VITALS (11 sets, daily range): BP systolic 140–177; BP diastolic 56–99
[2018-08-12] MEDS ORDERED: FUROSEMIDE 40 MG/4 ML INJ (LASIX) IVP ONE (05:30)
[2018-08-12] MEDS: LACTOBACILLUS ACIDOPHILUS (PROBIOTIC) CAPSULE PO SCH ×3 (05:52→17:18)
[2018-08-12] MEDS: BETHANECHOL 25 MG (URECHOLINE) TAB PO SCH ×2 (05:52→17:17)
[2018-08-12 05:53] LABS: BASOPHILS % (AUTO) 0 % (0-10); EOSINOPHILS % (AUTO) 0 % (0-10); HEMATOCRIT 34 % (40-54); HEMOGLOBIN 10.9 G/DL (13.3-17.7); LYMPHOCYTES % (AUTO) 6 % (12-44); MEAN CORPUSCULAR HEMOGLOBIN 30 PG (25-34); MEAN CORPUSCULAR HGB CONC 33 G/DL (32-36); MEAN CORPUSCULAR VOLUME 93 FL (80-99); MEAN PLATELET VOLUME 9.9 FL (7.4-10.4); MONOCYTES # (AUTO) 1.8 X 10^3 (0.0-1.0); MONOCYTES % (AUTO) 10 % (0-12); NEUTROPHILS # (AUTO) 14.4 X 10^3 (1.8-7.8); NEUTROPHILS % (AUTO) 83 % (42-75); PLATELET COUNT 325 10^3/uL (130-400); RED BLOOD COUNT 3.61 10^6/uL (4.35-5.85); RED CELL DISTRIBUTION WIDTH 15.1 % (10.0-14.5); WHITE BLOOD COUNT 17.2 10^3/uL (4.3-11.0)
[2018-08-12 06:10] LABS: BILIRUBIN,TOTAL 0.4 MG/DL (0.1-1.0); CALCIUM 8.8 MG/DL (8.5-10.1); CREATININE SERUM 2.02 MG/DL (0.60-1.30); POTASSIUM 4.4 MMOL/L (3.6-5.0); TOTAL PROTEIN 6.2 GM/DL (6.4-8.2)
[2018-08-12] MEDS ORDERED: LIDOCAINE 1% INJ 20 ML 20 ML VIAL ONE (06:46)
[2018-08-12] MEDS ORDERED: HEParin (CATH LAB) 2,000 ML IV ONE (06:47)
[2018-08-12] MEDS ORDERED: RT-ALBUTEROL SULF 2.5 MG/3 ML PRE-MIX VIAL INH PRN (08:00)
--- NOTE | 2018-08-12 08:06 | Cardiology Progress Note ---
Subjective Date Seen by Provider: Aug 12, 2018 Time Seen by Provider: 07:57 Subjective/Events-last exam Patient became more short of breath last night, received lasix 60 mg at 5:30 am , still having dyspnea Review of Systems General: No Chills, No Night Sweats, No Fatigue, No Malaise, No Appetite, No Other HEENT: No Head Aches, No Visual Changes, No Eye Pain, No Ear Pain, No Dysphasia , No Sinus Congestion, No Post Nasal Drip, No Sore Throat, No Other Pulmonary: Dyspnea; No Cough, No Pleuritic Chest Pain, No Other Cardiovascular: Edema; No: Chest Pain, Palpitations, Orthopnea, Paroxysmal Noc. Dyspnea, Lt Headedness, Other Objective-Cardiology Exam Last Set of Vital Signs Vital Signs 08/12/18 08/12/18 08/12/18 04:00 06:05 07:43 Temp 96.9 Pulse 63 Resp 23 B/P (MAP) 169/84 (112) Pulse Ox 88 O2 Delivery Nasal Cannula O2 Flow Rate 30.00 FiO2 38 Capillary Refill : Less Than 3 Seconds I&O Intake and Output 08/12/18 00:00 Intake Total 4145 ml Balance 4145 ml Intake Oral 1580 ml IV Total 2565 ml # Voids 7 # Bowel Movements 2 General: Alert, Oriented X3, Cooperative HEENT: Atraumatic, PERRLA Neck: Supple, No JVD Lungs: Normal Air Movement, Other (bilateral rhonchi) Heart: Normal S1, Normal S2, No Murmurs Abdomen: Normal Bowel Sounds, Soft, No Tenderness, No Hepatosplenomegaly, No Masses Extremities: No Clubbing, No Cyanosis, Normal Pulses, No Tenderness/Swelling, Other (mild edema) Skin: No Rashes, No Breakdown, No Significant Lesion Neuro: Normal Gait, Normal Speech, Strength at 5/5 X4 Ext, Normal Tone, Sensation Intact Psych/Mental Status: Mental Status NL, Mood NL Results Lab Laboratory Tests 08/12/18 05:15 A/P-Cardiology Admission Diagnosis Elevated troponin Abnormal EKG HTN Dyspnea [place] Assessment/Plan Elevated troponin: silent NSTEMI vs related to renal failure, planning for left heart cath Acute on chronic left ventricular systolic function, ejection fraction 40-45 percent, fluid overloaded secondary to aggressive hydration prior to the cardiac catheterization, given Lasix 40 mg Lasix night and 60 mg IV early this morning. Continue to monitor. Abnormal ECG on 08/09/18 showing NSR with occ PVC and with repolarization abnormality of undetermined etiology, continue to monitor. Gouty arthritis with R knee effusion, management per PCP H/o asymptomatic sinus bradycardia Hypertension- controlled, continue to monitor BP/HR. CKD-4, followed by Dr. Polina Floernce, continue to monitor renal function [place], treated with CPAP Clinical Quality Measures DVT/VTE Risk/Contraindication: Risk Factor Score Per Nursin RFS Level Per Nursing on Admit: 4+=Very High LYSSA LAU MD Aug 12, 2018 08:06
[2018-08-12] MEDS: NS IV 1000 ML 1,000 ML IV SCH ×2 (08:07→17:18)
--- NOTE | 2018-08-12 08:43 | Progress Note-Hospitalist ---
Subjective HPI/CC On Admission Date Seen by Provider: Aug 12, 2018 Time Seen by Provider: 08:39 CC: Right knee pain with effusion HPI: This is an 83-year-old white male clinic patient of Dr. 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 Patient was found to have a warm right knee with effusion that was tapped and fluid was analyzed showing uric acid crystals with elevated white count and sedimentation rate that he did not have any fever or anything to suggest a septic knee so is placed in observation gentle IV fluids initiated and plan for inpatient rehabilitation admission. All of his home meds will be reviewed and reconciled and restarted. He does see a dross puller in [place]. Subjective/Events-last exam Pt reports SOB over night but improving now with Lasix and BiPAP. Objective Exam Vital Signs Vital Signs Date Time Temp Pulse Resp B/P (MAP) Pulse Ox O2 Delivery O2 Flow Rate FiO2 08/12/18 08:10 97.3 57 18 140/72 (94) 92 NIV Bilevel 08/12/18 07:43 38 08/12/18 06:05 30.00 Capillary Refill : Less Than 3 Seconds General Appearance: Chronically ill, Mild Distress (on BiPAP) Respiratory: Crackles, Decreased Breath Sounds, Other (on BiPAP) Cardiovascular: Regular Rate, Rhythm, No Murmur Gastrointestinal: Normal Bowel Sounds, Non Tender, Soft Extremity: Swelling (2+ bilaterally) Neurologic/Psychiatric: Alert, Oriented x3 Results/Procedures Lab Laboratory Tests 08/12/18 05:15 Patient resulted labs reviewed. Assessment/Plan Assessment and Plan Assess & Plan/Chief Complaint NSTEMI Diagnosis/Problems Diagnosis/Problems (1) NSTEMI (non-ST elevated myocardial infarction) Assessment & Plan: Plan for cath today Trend creatinine- goal less than 2.0 Creatinine 2.02 Cardiology consulted- appreciate recs (2) Acute respiratory distress Assessment & Plan: Likely duet o fluid overload from high volume IVF for renal function On BiPAP- tolerating well Lasix given this AM Monitor I/Os (3) Gouty arthritis Assessment & Plan: History of previous episodes Cultures negative from aspirate Continue Steroids (4) Hypertension Status: Chronic Assessment & Plan: Relatively well controlled Trend Qualifiers: Hypertension type: essential hypertension Qualified Codes: I10 - Essential (primary) hypertension (5) Renal failure (ARF), acute on chronic Status: Acute Assessment & Plan: Creatinine 2.02 trend Qualifiers: Acute renal failure type: unspecified Chronic kidney disease stage: unspecified stage Qualified Codes: N17.9 - Acute kidney failure, unspecified; N18.9 - Chronic kidney disease, unspecified (6) Debility Status: Acute Assessment & Plan: PT/OT Will likely need SNF at [place] IRU consulted Clinical Quality Measures DVT/VTE Risk/Contraindication: Risk Factor Score Per Nursin RFS Level Per Nursing on Admit: 4+=Very High HILL SOLORZANO MD Aug 12, 2018 08:43
--- NOTE | 2018-08-12 10:20 | Diagnostic Imaging Report ---
INDICATION: Shortness of breath. Portable chest 8:48 AM FINDINGS: There are bilateral perihilar infiltrates greater on left than on the right. There is a hiatal hernia. Heart size and pulmonary vascularity are within normal limits. There is no appreciable effusion or pneumothorax. IMPRESSION: Bilateral perihilar infiltrates greater on left than on the right suspicious for pneumonia. Dictated by: Dictated on workstation # [id number]
[2018-08-12] MEDS ORDERED: TROUGH ORDER-PHARMACY XX NR (11:00)
--- NOTE | 2018-08-12 11:19 | Physical Therapy Progress Note ---
Therapy Progress Note No PT rendered this date. Pt to have heart cath today. Will check patient tomorrow. TAWANDA CRANE PT Aug 12, 2018 11:19
--- NOTE | 2018-08-12 14:00 | Occ Therapy Progress Note ---
Therapy Progress Note 1338 Pt not seen for OT today. He was prepped and waiting for heart cath. HARSHAL BOSE OT Aug 12, 2018 14:00
--- NOTE | 2018-08-12 14:38 | Cardiac Procedure Note-CS/ASA ---
Pre-Procedure Note Pre-Op Procedure Note H&P Reviewed The H&P was reviewed, patient examined and no changes noted. Date H&P Reviewed: Aug 12, 2018 Time H&P Reviewed: 14:38 Conscious Sedation Pre-Proced Time 14:38 ASA Score 3 For ASA 3 and 4: Consider anesthesia and medical clearance. Also, for patients with a history of failed moderate sedation consider anesthesia. Airway Lungs Heart ASA score ASA 1: a normal healthy patient ASA 2: a patient with a mild systemic disease (mid diabetes, controlled hypertension, obesity x ASA 3: a patient with a severe systemic disease that limits activity (angina , COPD, prior Myocardial infarction) ASA 4: a patient with an incapacitating disease that is a constant threat to life (CHF, renal failure) ASA 5: a moribund patient not expected to survive 24 hrs. (ruptured aneurysm) ASA 6: a declared brain patient whose organs are being harvested. For emergent operations, add the letter E after the classification Mallampati Classification Grade 3 Sedation Plan Analgesia, Amnesia, Plan communicated to team members, Discussed options with patient/fam, Discussed risks with patient/fam The patient is an appropriate candidate to undergo the planned procedure, sedation, and anesthesia. The patient immediately re-assessed prior to indication. LYSSA LAU MD Aug 12, 2018 14:38
[2018-08-12] MEDS ORDERED: fentaNYL INJECTION 100 MCG/2 ML AMP ONE (14:41)
[2018-08-12] MEDS ORDERED: MIDAZOLAM 5 MG/5 ML (VERSED) VIAL ONE (14:41)
[2018-08-12] MEDS ORDERED: HEParin 1000 UNIT/ML (10ML VIAL) FOR BOLUS ONE (14:41)
[2018-08-12] MEDS ORDERED: NS IV 1000 ML 1,000 ML IV SCH (15:32)
--- NOTE | 2018-08-12 15:43 | Cardiac Cath Report ---
Cardiac Cath Report Physician (s)/Brazing Machine Feeder (s) Physician LYSSA LAU MD Pre-Procedure Diagnosis Pre-Procedure Diagnosis: Coronary artery disease Post-Procedure Note Procedure Start Date: Aug 12, 2018 Name of Procedure: Coronary angiogram Findings/Procedure Note PROCEDURE NOTE: After explaining the procedure to the patient, all pros and cons were explained , all questions were answered. The patient signed the consent and then he was placed on the cardiac catheterization laboratory. Groin was prepped SL fashion local anesthesia was used. Sheath placed in the right femoral artery. [place] right and left catheter were used to access the coronary system. I was unable to cross the valve, has tortuous aorta At the end of the procedure the sheath was removed. Closure device was used FINDINGS: ANATOMY: Left Main has mild disease nonobstructive disease Left Anterior Descending has severe ostial lesion, mild to moderate disease distally, the first diagonal branch/ramus intermedius has mild disease Left Circumflex has mild disease at the midportion Right Coronory Artery is large dominant artery with severe ostial lesion CONCLUSION: 1. Ostial LAD and right coronary artery stenosis 2. Ischemic cardiomyopathy with congestive heart failure 3. Chronic renal failure DISCUSSION AND RECOMMENDATION: Arrangement to transfer to tertiary care [place] Anesthesia Type: Conscious Sedation Estimated blood loss (mL): 20 ml Contrast Amount: 18 ml Total Radiation Dose: 516 mGy Post-Procedure Diagnosis Post-operative diagnosis: Coronary artery disease Non-ST elevation myocardial infarction Congestive heart failure, acute left ventricular systolic dysfunction, ischemic cardiomyopathy Chronic renal failure Hypertension Hyperlipidemia (1) NSTEMI (non-ST elevated myocardial infarction) Assessment & Plan: Plan for cath today Trend creatinine- goal less than 2.0 Creatinine 2.02 Cardiology consulted- appreciate recs (2) Acute respiratory distress Assessment & Plan: Likely duet o fluid overload from high volume IVF for renal function On BiPAP- tolerating well Lasix given this AM Monitor I/Os (3) Gouty arthritis Assessment & Plan: History of previous episodes Cultures negative from aspirate Continue Steroids (4) Hypertension Assessment & Plan: Relatively well controlled Trend Qualifiers: Qualified Codes: I10 - Essential (primary) hypertension (5) Renal failure (ARF), acute on chronic Assessment & Plan: Creatinine 2.02 trend Qualifiers: Qualified Codes: N17.9 - Acute kidney failure, unspecified; N18.9 - Chronic kidney disease, unspecified (6) Debility Assessment & Plan: PT/OT Will likely need SNF at [place] IRU consulted LYSSA LAU MD Aug 12, 2018 15:43
[2018-08-12] MEDS ORDERED: PATIENT MAY USE OWN MEDS, ALL PO SCH (15:45)
[2018-08-12] MEDS: ASPIRIN 81 MG CHEW (CHILDREN'S ASA) PO SCH (17:16)
[2018-08-12] MEDS: amLODIPine 10 MG (NORVASC) TAB PO SCH (17:16)
[2018-08-12] MEDS: FINASTERIDE (PROSCAR) 5 MG TAB PO SCH (17:16)
[2018-08-12] MEDS: CALCITRIOL 0.25 MCG (ROCALTROL) CAPSULE PO SCH (17:16)
[2018-08-12] MEDS: CLOPIDOGREL 75 MG (PLAVIX) TABLET PO SCH (17:16)
[2018-08-12] MEDS: ENOXAPARIN 30 MG/0.3 ML (LOVENOX) SYR SC SCH (17:17)
[2018-08-12] MEDS: predniSONE 20 MG TAB PO SCH (17:17)
[2018-08-12] MEDS: TAMSULOSIN 0.4 MG (FLOMAX) CAP PO SCH (17:18)
--- OUTSIDE RECORDS SUMMARY | 2018-08-13 09:41 | XMS REPORT | Continuity of Care Document ---
Author Author [facility] Organization [facility] Address Unknown Phone Unavailable Allergies Active Description Code Type Severity Reaction Onset Reported/Identified Relationship to Patient Clinical Status Yes No Known Drug Allergies [id number] Drug Allergy Unknown N/A 01/31/2015 Medications There [...] CELL COUNT, UNSPECI 10/13/2017 CATALINA, PETER R HAND SPRING REPAIRER HELPER Ot 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 10/23/2017 PETER ARNOLD R HAND SPRING REPAIRER HELPER Ot J18.9 PNEUMONIA, UNSPECIFIED ORGANISM 10/23/2017 CATALINA PETER R HAND SPRING REPAIRER HELPER Ot R91.8 OTHER NONSPECIFIC ABNORMAL FINDING OF PAYTON 11/04/2017 DIMITRY ACEVEDO, CLAU Oneal Ot D72.829 ELEVATED WHITE BLOOD CELL COUNT, UNSPECI 11/06/2017 PETER ARNOLD R HAND SPRING REPAIRER HELPER Ot 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 11/14/2017 PETER ARNOLD R HAND SPRING REPAIRER HELPER Ot J18.9 PNEUMONIA, UNSPECIFIED ORGANISM 11/14/2017 CATALINA PETER R HAND SPRING REPAIRER HELPER Ot R91.8 OTHER NONSPECIFIC ABNORMAL FINDING OF [place] 11/19/2017 YEYO ACEVEDO, GEORGINA S Ot E78.5 [...] Ot R06.2 WHEEZING 11/19/2017 PETER ARNOLD R HAND SPRING REPAIRER HELPER Ot D72.829 ELEVATED WHITE BLOOD CELL COUNT, UNSPECI 11/19/2017 DIMITRY ACEVEDO, CLAU Oneal Ot D72.829 ELEVATED WHITE BLOOD CELL COUNT, UNSPECI 11/19/2017 CATALINA PETER R HAND SPRING REPAIRER HELPER Ot 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 11/19/2017 CATALINA PETER R HAND SPRING REPAIRER HELPER Ot J18.9 PNEUMONIA, UNSPECIFIED ORGANISM 11/19/2017 CATALIAN PETER R HAND SPRING REPAIRER HELPER Ot R91.8 OTHER NONSPECIFIC ABNORMAL FINDING OF [place]YTON 11/19/2017 CATALINA PETER R HAND SPRING REPAIRER HELPER Ot R00.1 BRADYCARDIA, UNSPECIFIED 11/19/2017 CATALINA PETER R HAND SPRING REPAIRER HELPER Ot R53.83 OTHER FATIGUE 11/20/2017 DIMITRY ACEVEDO, CLAU Oneal Ot D72.829 ELEVATED WHITE BLOOD CELL COUNT, UNSPECI 11/28/2017 PETER ARNOLD R HAND SPRING REPAIRER HELPER Ot R00.1 BRADYCARDIA, UNSPECIFIED 11/28/2017 CATALINA PETER R HAND SPRING REPAIRER HELPER Ot R53.83 OTHER FATIGUE 01/12/2018 YEYO ACEVEDO, [...] R80.9 PROTEINURIA, UNSPECIFIED 02/01/2018 PETER ARNOLD R HAND SPRING REPAIRER HELPER Ot R00.1 BRADYCARDIA, UNSPECIFIED 02/01/2018 CATALINA PETER R HAND SPRING REPAIRER HELPER Ot R53.83 OTHER FATIGUE 02/02/2018 CATALINA PETER R HAND SPRING REPAIRER HELPER Ot R00.1 BRADYCARDIA, UNSPECIFIED 02/02/2018 PETER ARNOLD APRN Ot R53.83 OTHER FATIGUE 08/05/2018 CLAU MORAES MD Ot 427.89 CARDIAC DYSRHYTHMIAS NEC 08/05/2018 CLAU MORAES MD Ot 486 PNEUMONIA, ORGANISM NOS 08/05/2018 CLAU MORAES MD Ot 780.79 OTH MALAISE FATIGUE 08/05/2018 CLAU MORAES MD Ot D72.829 ELEVATED WHITE BLOOD CELL COUNT, UNSPECI 08/05/2018 YEYO ACEVEDO, MEEKMED S Ot E78.5 HYPERLIPIDEMIA, UNSPECIFIED 08/05/2018 YEYO ACEVEDO, AHMED S Ot I12.9 HYPERTENSIVE CHRONIC KIDNEY DISEASE W ST 08/05/2018 YEYO ACEVEDO, MEEKMED S Ot M10.9 GOUT, UNSPECIFIED 08/05/2018 YEYO ACEVEDO, AHMED S Ot M19.90 UNSPECIFIED OSTEOARTHRITIS, UNSPECIFIED 08/05/2018 YEYO ACEVEDO, AHMED S Ot N18.3 CHRONIC KIDNEY DISEASE, STAGE 3 (MODERAT 08/05/2018 YEYO ACEVEDO, AHMED S Ot R80.9 PROTEINURIA, UNSPECIFIED 08/05/2018 JENNIFER SERNA Ot R05 COUGH 08/05/2018 JENNIFER SERNA Ot R06.2 WHEEZING 08/05/2018 PETER ARNOLD APRN Ot D72.829 ELEVATED WHITE BLOOD CELL COUNT, UNSPECI 08/05/2018 CLAU MORAES MD Ot D72.829 ELEVATED WHITE BLOOD CELL COUNT, UNSPECI 08/05/2018 PETER ARNOLD HAND SPRING REPAIRER HELPER Ot 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 08/05/2018 PETER ARNOLD HAND SPRING REPAIRER HELPER Ot J18.9 PNEUMONIA, UNSPECIFIED ORGANISM 08/05/2018 PETER ARNOLD HAND SPRING REPAIRER HELPER Ot R91.8 OTHER NONSPECIFIC ABNORMAL FINDING OF PAYTON 08/05/2018 PETER ARNOLD HAND SPRING REPAIRER HELPER Ot R00.1 BRADYCARDIA, UNSPECIFIED 08/05/2018 PETER ARNOLD HAND SPRING REPAIRER HELPER Ot R53.83 OTHER FATIGUE 08/08/2018 HILL SOLORZANO MD Ot D63.1 ANEMIA IN CHRONIC KIDNEY DISEASE 08/08/2018 HILL SOLORZANO MD Ot E78.00 PURE HYPERCHOLESTEROLEMIA, UNSPECIFIED 08/08/2018 HILL SOLORZANO MD Ot H57.89 OTHER SPECIFIED DISORDERS OF EYE AND ADN 08/08/2018 HILL SOLORZANO MD Ot I12.9 HYPERTENSIVE CHRONIC KIDNEY DISEASE W ST 08/08/2018 HILL SOLORZANO MD Ot M00.9 PYOGENIC ARTHRITIS, UNSPECIFIED 08/08/2018 HILL SOLORZANO MD Ot M10.9 GOUT, UNSPECIFIED 08/08/2018 HILL SOLORZANO MD Ot M54.5 LOW BACK PAIN 08/08/2018 HILL SOLORZANO MD Ot N17.9 ACUTE KIDNEY FAILURE, UNSPECIFIED 08/08/2018 HILL SOLORZANO MD Ot N18.4 CHRONIC KIDNEY DISEASE, STAGE 4 (SEVERE) 08/08/2018 HILL SOLORZANO MD Ot N40.0 BENIGN PROSTATIC HYPERPLASIA WITHOUT LOW 08/08/2018 HILL SOLORZANO MD Ot R53.81 OTHER MALAISE 08/08/2018 HILL SOLORZANO MD Ot Z91.81 HISTORY OF FALLING 08/09/2018 HILL SOLORZANO MD Ot D63.1 ANEMIA IN CHRONIC KIDNEY DISEASE 08/09/2018 HILL SOLORZANO MD Ot E78.00 PURE HYPERCHOLESTEROLEMIA, UNSPECIFIED 08/09/2018 HILL SOLORZANO MD Ot H57.89 OTHER SPECIFIED DISORDERS OF EYE AND ADN 08/09/2018 HILL SOLORZANO MD Ot I12.9 HYPERTENSIVE CHRONIC KIDNEY DISEASE W ST 08/09/2018 HILL SOLORZANO MD Ot M00.9 PYOGENIC ARTHRITIS, UNSPECIFIED 08/09/2018 HILL SOLORZANO MD Ot M10.9 GOUT, UNSPECIFIED 08/09/2018 HILL SOLORZANO MD Ot M54.5 LOW BACK PAIN 08/09/2018 HILL SOLORZANO MD Ot N17.9 ACUTE KIDNEY FAILURE, UNSPECIFIED 08/09/2018 HILL SOLORZANO MD Ot N18.4 CHRONIC KIDNEY DISEASE, STAGE 4 (SEVERE) 08/09/2018 HILL SOLORZANO MD Ot N40.0 BENIGN PROSTATIC HYPERPLASIA WITHOUT LOW 08/09/2018 HILL SOLORZANO MD Ot R53.81 OTHER MALAISE 08/09/2018 HILL SOLORZANO MD Ot Z91.81 HISTORY OF FALLING 08/09/2018 HILL SOLORZANO MD Ot D63.1 ANEMIA IN CHRONIC KIDNEY DISEASE 08/09/2018 HILL SOLORZANO MD Ot E78.00 PURE HYPERCHOLESTEROLEMIA, UNSPECIFIED 08/09/2018 HILL SOLORZANO MD Ot H57.89 OTHER SPECIFIED DISORDERS OF EYE AND ADN 08/09/2018 HILL SOLORZANO MD Ot I12.9 HYPERTENSIVE CHRONIC KIDNEY DISEASE W ST 08/09/2018 HILL SOLORZANO MD Ot M00.9 PYOGENIC ARTHRITIS, UNSPECIFIED 08/09/2018 HILL SOLORZANO MD Ot M10.9 GOUT, UNSPECIFIED 08/09/2018 HILL SOLORZANO MD Ot M54.5 LOW BACK PAIN 08/09/2018 HILL SOLORZANO MD Ot N17.9 ACUTE KIDNEY FAILURE, UNSPECIFIED 08/09/2018 HILL SOLORZANO MD Ot N18.4 CHRONIC KIDNEY DISEASE, STAGE 4 (SEVERE) 08/09/2018 HILL SOLORZANO MD Ot N40.0 BENIGN PROSTATIC HYPERPLASIA WITHOUT LOW 08/09/2018 HILL SOLORZANO MD Ot R53.81 OTHER MALAISE 08/09/2018 HILL SOLORZANO MD Ot Z91.81 HISTORY OF FALLING 08/10/2018 HILL SOLORZANO MD Ot D63.1 ANEMIA IN CHRONIC KIDNEY DISEASE 08/10/2018 HILL SOLORZANO MD Ot E78.00 PURE HYPERCHOLESTEROLEMIA, UNSPECIFIED 08/10/2018 HILL SOLORZANO MD Ot H57.89 OTHER SPECIFIED DISORDERS OF EYE AND ADN 08/10/2018 HILL SOLORZANO MD Ot I12.9 HYPERTENSIVE CHRONIC KIDNEY DISEASE W ST 08/10/2018 HILL SOLORZANO MD Ot M00.9 PYOGENIC ARTHRITIS, UNSPECIFIED 08/10/2018 HILL SOLORZANO MD Ot M10.9 GOUT, UNSPECIFIED 08/10/2018 HILL SOLORZANO MD Ot M54.5 LOW BACK PAIN 08/10/2018 HILL SOLORZANO MD Ot N17.9 ACUTE KIDNEY FAILURE, UNSPECIFIED 08/10/2018 HILL SOLORZANO MD Ot N18.4 CHRONIC KIDNEY DISEASE, STAGE 4 (SEVERE) 08/10/2018 HILL SOLORZANO MD Ot N40.0 BENIGN PROSTATIC HYPERPLASIA WITHOUT LOW 08/10/2018 HILL SOLORZANO MD Ot R53.81 OTHER MALAISE 08/10/2018 HILL SOLORZANO MD Ot Z91.81 HISTORY OF FALLING 08/10/2018 HILL SOLORZANO MD Ot D63.1 ANEMIA IN CHRONIC KIDNEY DISEASE 08/10/2018 HILL SOLORZANO MD Ot E78.00 PURE HYPERCHOLESTEROLEMIA, UNSPECIFIED 08/10/2018 HILL SOLORZANO MD Ot H57.89 OTHER SPECIFIED DISORDERS OF EYE AND ADN 08/10/2018 HILL SOLORZANO MD Ot I12.9 HYPERTENSIVE CHRONIC KIDNEY DISEASE W ST 08/10/2018 HILL SOLORZANO MD Ot M00.9 PYOGENIC ARTHRITIS, UNSPECIFIED 08/10/2018 HILL SOLORZANO MD Ot M10.9 GOUT, UNSPECIFIED 08/10/2018 HILL SOLORZANO MD Ot M54.5 LOW BACK PAIN 08/10/2018 HILL SOLORZANO MD Ot N17.9 ACUTE KIDNEY FAILURE, UNSPECIFIED 08/10/2018 HILL SOLORZANO MD Ot N18.4 CHRONIC KIDNEY DISEASE, STAGE 4 (SEVERE) 08/10/2018 HILL SOLORZANO MD Ot N40.0 BENIGN PROSTATIC HYPERPLASIA WITHOUT LOW 08/10/2018 HILL SOLORZANO MD Ot R53.81 OTHER MALAISE 08/10/2018 HILL SOLORZANO MD Ot Z91.81 HISTORY OF FALLING 08/12/2018 HILL SOLORZANO MD Ot D63.1 ANEMIA IN CHRONIC KIDNEY DISEASE 08/12/2018 HILL SOLORZANO MD Ot E78.00 PURE HYPERCHOLESTEROLEMIA, UNSPECIFIED 08/12/2018 HILL SOLORZANO MD Ot H57.89 OTHER SPECIFIED DISORDERS OF EYE AND ADN 08/12/2018 HILL SOLORZANO MD Ot I12.9 HYPERTENSIVE CHRONIC KIDNEY DISEASE W ST 08/12/2018 HILL SOLORZANO MD Ot M00.9 PYOGENIC ARTHRITIS, UNSPECIFIED 08/12/2018 HILL SOLORZANO MD Ot M10.9 GOUT, UNSPECIFIED 08/12/2018 HILL SOLORZANO MD Ot M54.5 LOW BACK PAIN 08/12/2018 HILL SOLORZANO MD Ot N17.9 ACUTE KIDNEY FAILURE, UNSPECIFIED 08/12/2018 HILL SOLORZANO MD Ot N18.4 CHRONIC KIDNEY DISEASE, STAGE 4 (SEVERE) 08/12/2018 HILL SOLORZANO MD Ot N40.0 BENIGN PROSTATIC HYPERPLASIA WITHOUT LOW 08/12/2018 HILL SOLORZANO MD Ot R53.81 OTHER MALAISE 08/12/2018 HILL SOLORZANO MD, Ot Z91.81 HISTORY OF FALLING 08/12/2018 HILL SOLORZANO MD Ot D63.1 ANEMIA IN CHRONIC KIDNEY DISEASE 08/12/2018 HILL SOLORZANO MD Ot E78.00 PURE HYPERCHOLESTEROLEMIA, UNSPECIFIED 08/12/2018 HILL SOLORZANO MD Ot H57.89 OTHER SPECIFIED DISORDERS OF EYE AND ADN 08/12/2018 HILL SOLORZANO MD Ot I12.9 HYPERTENSIVE CHRONIC KIDNEY DISEASE W ST 08/12/2018 HILL SOLORZANO MD Ot M00.9 PYOGENIC ARTHRITIS, UNSPECIFIED 08/12/2018 HILL SOLORZANO MD, Ot M10.9 GOUT, UNSPECIFIED 08/12/2018 HILL SOLORZANO MD Ot M54.5 LOW BACK PAIN 08/12/2018 HILL SOLORZANO MD Ot N17.9 ACUTE KIDNEY FAILURE, UNSPECIFIED 08/12/2018 HILL SOLORZANO MD Ot N18.4 CHRONIC KIDNEY DISEASE, STAGE 4 (SEVERE) 08/12/2018 HILL SOLORZANO MD Ot N40.0 BENIGN PROSTATIC HYPERPLASIA WITHOUT LOW 08/12/2018 HILL SOLORZANO MD Ot R53.81 OTHER MALAISE 08/12/2018 HILL SOLORZANO MD Ot Z91.81 HISTORY OF FALLING Procedures Code Description Performed By Performed On [id number] [facility]2018 [id number] DRAINAGE OF RIGHT KNEE JOINT, PERCUTANEO 08/06/2018 Results Test Result Range Blood CBC with [...] situ hybridization ( FISH) - 08/06/17 15:30 [id number] WHOLE BLOOD NRG BCR-ABL gene translocation detection See Report NRG Complete blood count (CBC) with automated white blood cell (WBC) differential - 08/05/18 10:53 Blood leukocytes automated count (number/volume) 15.1 10*3/uL 4.3-11.0 Blood erythrocytes automated count (number/volume) 4.22 10*6/uL 4.35-5.85 Venous blood hemoglobin measurement (mass/volume) 12.9 g/dL 13.3-17.7 Blood hematocrit (volume fraction) 40 % 40-54 Automated erythrocyte mean corpuscular volume 94 [foz_us] 80-99 Automated erythrocyte mean corpuscular hemoglobin (mass per erythrocyte) 31 pg 25-34 Automated erythrocyte mean corpuscular hemoglobin concentration measurement ( mass/volume) 33 g/dL 32-36 Automated erythrocyte distribution width ratio 15.1 % 10.0-14.5 Automated blood platelet count (count/volume) 267 10*3/uL 130-400 Automated blood platelet mean volume measurement 10.6 [foz_us] 7.4-10.4 Automated blood neutrophils/100 leukocytes 66 % 42-75 Automated blood lymphocytes/100 leukocytes 20 % 12-44 Blood monocytes/100 leukocytes 14 % 0-12 Automated blood eosinophils/100 leukocytes 1 % 0-10 Automated blood basophils/100 leukocytes 0 % 0-10 Blood neutrophils automated count (number/volume) 9.9 10*3 1.8-7.8 Blood lymphocytes automated count (number/volume) 3.0 10*3 1.0-4.0 Blood monocytes automated count (number/volume) 2.1 10*3 0.0-1.0 Automated eosinophil count 0.1 10*3/uL 0.0-0.3 Automated blood basophil count (count/volume) 0.0 10*3/uL 0.0-0.1 Comprehensive metabolic panel - 08/05/18 10:53 Serum or plasma sodium measurement (moles/volume) 142 mmol/L 135-145 Serum or plasma potassium measurement (moles/volume) 4.2 mmol/L 3.6-5.0 Serum or plasma chloride measurement (moles/volume) 107 mmol/L 98-107 Carbon dioxide 22 mmol/L 21-32 Serum or plasma anion gap determination (moles/volume) 13 mmol/L 5-14 Serum or plasma urea nitrogen measurement (mass/volume) 44 mg/dL 7-18 Serum or plasma creatinine measurement (mass/volume) 3.05 mg/dL 0.60-1.30 Serum or plasma urea nitrogen/creatinine mass ratio 14 NRG Serum or plasma creatinine measurement with calculation of estimated glomerular filtration rate 20 NRG Serum or plasma glucose measurement (mass/volume) 136 mg/dL 70-105 Serum or plasma calcium measurement (mass/volume) 10.3 mg/dL 8.5-10.1 Serum or plasma total bilirubin measurement (mass/volume) 0.8 mg/dL 0.1-1.0 Serum or plasma alkaline phosphatase measurement (enzymatic activity/volume) 77 U/L 40-136 Serum or plasma aspartate aminotransferase measurement (enzymatic activity/ volume) 10 U/L 5-34 Serum or plasma alanine aminotransferase measurement (enzymatic activity/volume ) 8 U/L 0-55 Serum or plasma protein measurement (mass/volume) 8.7 g/dL 6.4-8.2 Serum or plasma albumin measurement (mass/volume) 4.1 g/dL 3.2-4.5 CALCIUM CORRECTED 10.2 mg/dL 8.5-10.1 Serum or plasma uric acid measurement (mass/volume) - 08/05/18 10:53 Serum or plasma uric acid measurement (mass/volume) 9.3 mg/dL 2.6-7.2 Blood manual differential performed detection - 08/05/18 10:53 Blood monocytes/100 leukocytes 10 % NRG Manual blood segmented neutrophils/100 leukocytes 71 % NRG Blood band neutrophils/100 leukocytes 2 % NRG Manual blood lymphocytes/100 leukocytes 16 % NRG Manual eosinophils/100 leukocytes in nose 0 % NRG Manual blood basophils/100 leukocytes 0 % NRG Blood lymphocytes variant/100 leukocytes 1 % NRG Blood erythrocyte morphology finding identification NORMAL NRG Erythrocyte sedimentation rate by westergren method - 08/05/18 10:53 Erythrocyte sedimentation rate by westergren method 55 mm 0-30 Complete urinalysis with reflex to culture - 08/05/18 11:13 Urine color determination YELLOW NRG Urine clarity determination CLEAR NRG Urine pH measurement by test strip 5 5-9 Specific gravity of urine by test strip 1.020 1.016- 1.022 Urine protein assay by test strip, semi-quantitative 4+ NEGATIVE Urine glucose detection by automated test strip 1+ NEGATIVE Erythrocytes detection in urine sediment by light microscopy NEGATIVE NEGATIVE Urine ketones detection by automated test strip NEGATIVE NEGATIVE Urine nitrite detection by test strip NEGATIVE NEGATIVE Urine total bilirubin detection by test strip NEGATIVE NEGATIVE Urine urobilinogen measurement by automated test strip (mass/volume) NORMAL NORMAL Urine leukocyte esterase detection by dipstick NEGATIVE NEGATIVE Automated urine sediment erythrocyte count by microscopy (number/high power field) NONE NRG Automated urine sediment leukocyte count by microscopy (number/high power field ) NONE NRG Bacteria detection in urine sediment by light microscopy NEGATIVE NRG Squamous epithelial cells detection in urine sediment by light microscopy 5-10 NRG Crystals detection in urine sediment by light microscopy PRESENT NRG Casts detection in urine sediment by light microscopy PRESENT NRG Mucus detection in urine sediment by light microscopy NEGATIVE NRG Complete urinalysis with reflex to culture NO NRG Amorphous sediment detection in urine sediment by light microscopy RARE DELVIS URATES NRG Hyaline casts detection in urine sediment by light microscopy 2-5 NRG Blood lactic acid measurement (moles/volume) - 08/05/18 12:00 Blood lactic acid measurement (moles/volume) 1.14 mmol/L 0.50-2.00 Bacterial blood culture - 08/05/18 12:00 QUANTITY OF GROWTH . NRG Bacterial blood culture SEE COMMEN NRG Bacterial blood culture - 08/05/18 12:53 Bacterial blood culture NG NRG Body fluid cell count - 08/05/18 14:15 Specimen source identification of body fluid SYNOVIAL NRG Evaluation of color of body fluid RED NRG Determination of appearance of body fluid MKD CLDY/BLDY NRG Body fluid leukocytes count (number/volume) TNP NRG Body fluid erythrocytes count (number/volume) TNP NRG Manual body fluid polymorphonuclear cells/100 leukocytes 90 % NRG Manual body fluid mononuclear cells/100 leukocytes 4 % NRG Manual body fluid lymphocytes/100 leukocytes 6 % NRG Other cells/100 leukocytes in body fluid by manual count 0 % NRG * Body fluid crystals type by light microscopy - 08/05/18 14:15 * Body fluid crystals type by light microscopy URIC ACID NRG Gram stain microscopy - 08/05/18 14:15 Gram stain microscopy Few Gram positive cocci NRG Bacterial body fluid culture - 08/05/18 14:15 Bacterial body fluid culture NG NRG Complete blood count (CBC) with automated white blood cell (WBC) differential - 08/06/18 05:15 Blood leukocytes automated count (number/volume) 15.3 10*3/uL 4.3-11.0 Blood erythrocytes automated count (number/volume) 3.73 10*6/uL 4.35-5.85 Venous blood hemoglobin measurement (mass/volume) 11.4 g/dL 13.3-17.7 Blood hematocrit (volume fraction) 35 % 40-54 Automated erythrocyte mean corpuscular volume 93 [foz_us] 80-99 Automated erythrocyte mean corpuscular hemoglobin (mass per erythrocyte) 31 pg 25-34 Automated erythrocyte mean corpuscular hemoglobin concentration measurement ( mass/volume) 33 g/dL 32-36 Automated erythrocyte distribution width ratio 15.2 % 10.0-14.5 Automated blood platelet count (count/volume) 254 10*3/uL 130-400 Automated blood platelet mean volume measurement 10.6 [foz_us] 7.4-10.4 Automated blood neutrophils/100 leukocytes 74 % 42-75 Automated blood lymphocytes/100 leukocytes 13 % 12-44 Blood monocytes/100 leukocytes 13 % 0-12 Automated blood eosinophils/100 leukocytes 0 % 0-10 Automated blood basophils/100 leukocytes 0 % 0-10 Blood neutrophils automated count (number/volume) 11.3 10*3 1.8-7.8 Blood lymphocytes automated count (number/volume) 2.0 10*3 1.0-4.0 Blood monocytes automated count (number/volume) 2.0 10*3 0.0-1.0 Automated eosinophil count 0.0 10*3/uL 0.0-0.3 Automated blood basophil count (count/volume) 0.0 10*3/uL 0.0-0.1 Comprehensive metabolic panel - 08/06/18 05:15 Serum or plasma sodium measurement (moles/volume) 138 mmol/L 135-145 Serum or plasma potassium measurement (moles/volume) 3.7 mmol/L 3.6-5.0 Serum or plasma chloride measurement (moles/volume) 108 mmol/L 98-107 Carbon dioxide 17 mmol/L 21-32 Serum or plasma anion gap determination (moles/volume) 13 mmol/L 5-14 Serum or plasma urea nitrogen measurement (mass/volume) 40 mg/dL 7-18 Serum or plasma creatinine measurement (mass/volume) 2.67 mg/dL 0.60-1.30 Serum or plasma urea nitrogen/creatinine mass ratio 15 NRG Serum or plasma creatinine measurement with calculation of estimated glomerular filtration rate 23 NRG Serum or plasma glucose measurement (mass/volume) 142 mg/dL 70-105 Serum or plasma calcium measurement (mass/volume) 9.2 mg/dL 8.5-10.1 Serum or plasma total bilirubin measurement (mass/volume) 0.6 mg/dL 0.1-1.0 Serum or plasma alkaline phosphatase measurement (enzymatic activity/volume) 67 U/L 40-136 Serum or plasma aspartate aminotransferase measurement (enzymatic activity/ volume) 12 U/L 5-34 Serum or plasma alanine aminotransferase measurement (enzymatic activity/volume ) 8 U/L 0-55 Serum or plasma protein measurement (mass/volume) 7.5 g/dL 6.4-8.2 Serum or plasma albumin measurement (mass/volume) 3.4 g/dL 3.2-4.5 CALCIUM CORRECTED 9.7 mg/dL 8.5-10.1 Blood lactic acid measurement (moles/volume) - 08/06/18 11:06 Blood lactic acid measurement (moles/volume) 0.81 mmol/L 0.50-2.00 Body fluid cell count - 08/06/18 17:35 Specimen source identification of body fluid SYNOVIAL NRG Evaluation of color of body fluid RED NRG Determination of appearance of body fluid MOD BLDY NRG Body fluid leukocytes count (number/volume) 06963 /uL NRG Body fluid erythrocytes count (number/volume) 69450 /uL NRG Manual body fluid polymorphonuclear cells/100 leukocytes 87 % NRG Manual body fluid mononuclear cells/100 leukocytes 13 % NRG Manual body fluid lymphocytes/100 leukocytes 0 % NRG Other cells/100 leukocytes in body fluid by manual count 0 % NRG * Body fluid crystals type by light microscopy - 08/06/18 17:35 * Body fluid crystals type by light microscopy URIC ACID NRG Glucose body fluid - 08/06/18 17:35 Glucose body fluid 195 mg/dL NRG Gram stain microscopy - 08/06/18 17:35 Gram stain microscopy No bacteria seen NRG Bacterial body fluid culture - 08/06/18 17:35 Bacterial body fluid culture NG NRG Bacteria identification in isolate by anaerobe culture - 08/06/18 17:35 Bacteria identification in isolate by anaerobe culture NOANA NRG Complete blood count (CBC) with automated white blood cell (WBC) differential - 08/07/18 06:14 Blood leukocytes automated count (number/volume) 10.0 10*3/uL 4.3-11.0 Blood erythrocytes automated count (number/volume) 3.51 10*6/uL 4.35-5.85 Venous blood hemoglobin measurement (mass/volume) 10.6 g/dL 13.3-17.7 Blood hematocrit (volume fraction) 33 % 40-54 Automated erythrocyte mean corpuscular volume 94 [foz_us] 80-99 Automated erythrocyte mean corpuscular hemoglobin (mass per erythrocyte) 30 pg 25-34 Automated erythrocyte mean corpuscular hemoglobin concentration measurement ( mass/volume) 32 g/dL 32-36 Automated erythrocyte distribution width ratio 14.8 % 10.0-14.5 Automated blood platelet count (count/volume) 221 10*3/uL 130-400 Automated blood platelet mean volume measurement 11.0 [foz_us] 7.4-10.4 Automated blood neutrophils/100 leukocytes 86 % 42-75 Automated blood lymphocytes/100 leukocytes 9 % 12-44 Blood monocytes/100 leukocytes 5 % 0-12 Automated blood eosinophils/100 leukocytes 0 % 0-10 Automated blood basophils/100 leukocytes 0 % 0-10 Blood neutrophils automated count (number/volume) 8.7 10*3 1.8-7.8 Blood lymphocytes automated count (number/volume) 0.9 10*3 1.0-4.0 Blood monocytes automated count (number/volume) 0.5 10*3 0.0-1.0 Automated eosinophil count 0.0 10*3/uL 0.0-0.3 Automated blood basophil count (count/volume) 0.0 10*3/uL 0.0-0.1 Comprehensive metabolic panel - 08/07/18 06:14 Serum or plasma sodium measurement (moles/volume) 139 mmol/L 135-145 Serum or plasma potassium measurement (moles/volume) 4.2 mmol/L 3.6-5.0 Serum or plasma chloride measurement (moles/volume) 112 mmol/L 98-107 Carbon dioxide 16 mmol/L 21-32 Serum or plasma anion gap determination (moles/volume) 11 mmol/L 5-14 Serum or plasma urea nitrogen measurement (mass/volume) 49 mg/dL 7-18 Serum or plasma creatinine measurement (mass/volume) 2.82 mg/dL 0.60-1.30 Serum or plasma urea nitrogen/creatinine mass ratio 17 NRG Serum or plasma creatinine measurement with calculation of estimated glomerular filtration rate 22 NRG Serum or plasma glucose measurement (mass/volume) 244 mg/dL 70-105 Serum or plasma calcium measurement (mass/volume) 9.1 mg/dL 8.5-10.1 Serum or plasma total bilirubin measurement (mass/volume) 0.2 mg/dL 0.1-1.0 Serum or plasma alkaline phosphatase measurement (enzymatic activity/volume) 67 U/L 40-136 Serum or plasma aspartate aminotransferase measurement (enzymatic activity/ volume) 14 U/L 5-34 Serum or plasma alanine aminotransferase measurement (enzymatic activity/volume ) 8 U/L 0-55 Serum or plasma protein measurement (mass/volume) 6.9 g/dL 6.4-8.2 Serum or plasma albumin measurement (mass/volume) 3.1 g/dL 3.2-4.5 CALCIUM CORRECTED 9.8 mg/dL 8.5-10.1 Complete blood count (CBC) with automated white blood cell (WBC) differential - 08/08/18 05:42 Blood leukocytes automated count (number/volume) 16.4 10*3/uL 4.3-11.0 Blood erythrocytes automated count (number/volume) 3.64 10*6/uL 4.35-5.85 Venous blood hemoglobin measurement (mass/volume) 11.3 g/dL 13.3-17.7 Blood hematocrit (volume fraction) 34 % 40-54 Automated erythrocyte mean corpuscular volume 94 [foz_us] 80-99 Automated erythrocyte mean corpuscular hemoglobin (mass per erythrocyte) 31 pg 25-34 Automated erythrocyte mean corpuscular hemoglobin concentration measurement ( mass/volume) 33 g/dL 32-36 Automated erythrocyte distribution width ratio 14.9 % 10.0-14.5 Automated blood platelet count (count/volume) 299 10*3/uL 130-400 Automated blood platelet mean volume measurement 10.6 [foz_us] 7.4-10.4 Automated blood neutrophils/100 leukocytes 91 % 42-75 Automated blood lymphocytes/100 leukocytes 4 % 12-44 Blood monocytes/100 leukocytes 5 % 0-12 Automated blood eosinophils/100 leukocytes 0 % 0-10 Automated blood basophils/100 leukocytes 0 % 0-10 Blood neutrophils automated count (number/volume) 14.9 10*3 1.8-7.8 Blood lymphocytes automated count (number/volume) 0.7 10*3 1.0-4.0 Blood monocytes automated count (number/volume) 0.8 10*3 0.0-1.0 Automated eosinophil count 0.0 10*3/uL 0.0-0.3 Automated blood basophil count (count/volume) 0.0 10*3/uL 0.0-0.1 Comprehensive metabolic panel - 08/08/18 05:42 Serum or plasma sodium measurement (moles/volume) 138 mmol/L 135-145 Serum or plasma potassium measurement (moles/volume) 4.5 mmol/L 3.6-5.0 Serum or plasma chloride measurement (moles/volume) 111 mmol/L 98-107 Carbon dioxide 16 mmol/L 21-32 Serum or plasma anion gap determination (moles/volume) 11 mmol/L 5-14 Serum or plasma urea nitrogen measurement (mass/volume) 56 mg/dL 7-18 Serum or plasma creatinine measurement (mass/volume) 2.91 mg/dL 0.60-1.30 Serum or plasma urea nitrogen/creatinine mass ratio 19 NRG Serum or plasma creatinine measurement with calculation of estimated glomerular filtration rate 21 NRG Serum or plasma glucose measurement (mass/volume) 247 mg/dL 70-105 Serum or plasma calcium measurement (mass/volume) 9.4 mg/dL 8.5-10.1 Serum or plasma total bilirubin measurement (mass/volume) 0.2 mg/dL 0.1-1.0 Serum or plasma alkaline phosphatase measurement (enzymatic activity/volume) 65 U/L 40-136 Serum or plasma aspartate aminotransferase measurement (enzymatic activity/ volume) 14 U/L 5-34 Serum or plasma alanine aminotransferase measurement (enzymatic activity/volume ) 9 U/L 0-55 Serum or plasma protein measurement (mass/volume) 7.3 g/dL 6.4-8.2 Serum or plasma albumin measurement (mass/volume) 3.3 g/dL 3.2-4.5 CALCIUM CORRECTED 10.0 mg/dL 8.5-10.1 Vancomycin trough - 08/08/18 09:00 Vancomycin trough 19.8 ug/mL 10.0-20.0 Complete blood count (CBC) with automated white blood cell (WBC) differential - 08/09/18 09:10 Blood leukocytes automated count (number/volume) 14.0 10*3/uL 4.3-11.0 Blood erythrocytes automated count (number/volume) 3.53 10*6/uL 4.35-5.85 Venous blood hemoglobin measurement (mass/volume) 10.7 g/dL 13.3-17.7 Blood hematocrit (volume fraction) 33 % 40-54 Automated erythrocyte mean corpuscular volume 94 [foz_us] 80-99 Automated erythrocyte mean corpuscular hemoglobin (mass per erythrocyte) 30 pg 25-34 Automated erythrocyte mean corpuscular hemoglobin concentration measurement ( mass/volume) 32 g/dL 32-36 Automated erythrocyte distribution width ratio 14.8 % 10.0-14.5 Automated blood platelet count (count/volume) 303 10*3/uL 130-400 Automated blood platelet mean volume measurement 10.0 [foz_us] 7.4-10.4 Automated blood neutrophils/100 leukocytes 89 % 42-75 Automated blood lymphocytes/100 leukocytes 5 % 12-44 Blood monocytes/100 leukocytes 6 % 0-12 Automated blood eosinophils/100 leukocytes 0 % 0-10 Automated blood basophils/100 leukocytes 0 % 0-10 Blood neutrophils automated count (number/volume) 12.5 10*3 1.8-7.8 Blood lymphocytes automated count (number/volume) 0.7 10*3 1.0-4.0 Blood monocytes automated count (number/volume) 0.8 10*3 0.0-1.0 Automated eosinophil count 0.0 10*3/uL 0.0-0.3 Automated blood basophil count (count/volume) 0.0 10*3/uL 0.0-0.1 Blood manual differential performed detection - 08/09/18 09:10 Blood monocytes/100 leukocytes 8 % NRG Manual blood segmented neutrophils/100 leukocytes 86 % NRG Blood band neutrophils/100 leukocytes 3 % NRG Manual blood lymphocytes/100 leukocytes 3 % NRG Blood erythrocyte morphology finding identification NORMAL NRG Blood toxic granules detection by light microscopy 2+ NRG Blood hypersegmented neutrophils detection by light microscopy MODERATE NRG Comprehensive metabolic panel - 08/09/18 09:10 Serum or plasma sodium measurement (moles/volume) 138 mmol/L 135-145 Serum or plasma potassium measurement (moles/volume) 4.4 mmol/L 3.6-5.0 Serum or plasma chloride measurement (moles/volume) 111 mmol/L 98-107 Carbon dioxide 15 mmol/L 21-32 Serum or plasma anion gap determination (moles/volume) 12 mmol/L 5-14 Serum or plasma urea nitrogen measurement (mass/volume) 65 mg/dL 7-18 Serum or plasma creatinine measurement (mass/volume) 2.79 mg/dL 0.60-1.30 Serum or plasma urea nitrogen/creatinine mass ratio 23 NRG Serum or plasma creatinine measurement with calculation of estimated glomerular filtration rate 22 NRG Serum or plasma glucose measurement (mass/volume) 335 mg/dL 70-105 Serum or plasma calcium measurement (mass/volume) 8.9 mg/dL 8.5-10.1 Serum or plasma total bilirubin measurement (mass/volume) 0.2 mg/dL 0.1-1.0 Serum or plasma alkaline phosphatase measurement (enzymatic activity/volume) 65 U/L 40-136 Serum or plasma aspartate aminotransferase measurement (enzymatic activity/ volume) 10 U/L 5-34 Serum or plasma alanine aminotransferase measurement (enzymatic activity/volume ) 11 U/L 0-55 Serum or plasma protein measurement (mass/volume) 6.9 g/dL 6.4-8.2 Serum or plasma albumin measurement (mass/volume) 3.2 g/dL 3.2-4.5 CALCIUM CORRECTED 9.5 mg/dL 8.5-10.1 Vancomycin trough - 08/09/18 09:10 Vancomycin trough 25.6 ug/mL 10.0-20.0 Serum or plasma troponin i.cardiac measurement (mass/volume) - 08/09/18 12:15 Serum or plasma troponin i.cardiac measurement (mass/volume) 1.20 ng /mL <0.30 Vancomycin trough - 08/09/18 21:31 Vancomycin trough 22.2 ug/mL 10.0-20.0 Complete blood count (CBC) with automated white blood cell (WBC) differential - 08/10/18 05:22 Blood leukocytes automated count (number/volume) 16.0 10*3/uL 4.3-11.0 Blood erythrocytes automated count (number/volume) 3.74 10*6/uL 4.35-5.85 Venous blood hemoglobin measurement (mass/volume) 11.5 g/dL 13.3-17.7 Blood hematocrit (volume fraction) 35 % 40-54 Automated erythrocyte mean corpuscular volume 94 [foz_us] 80-99 Automated erythrocyte mean corpuscular hemoglobin (mass per erythrocyte) 31 pg 25-34 Automated erythrocyte mean corpuscular hemoglobin concentration measurement ( mass/volume) 33 g/dL 32-36 Automated erythrocyte distribution width ratio 15.1 % 10.0-14.5 Automated blood platelet count (count/volume) 390 10*3/uL 130-400 Automated blood platelet mean volume measurement 10.3 [foz_us] 7.4-10.4 Automated blood neutrophils/100 leukocytes 82 % 42-75 Automated blood lymphocytes/100 leukocytes 8 % 12-44 Blood monocytes/100 leukocytes 10 % 0-12 Automated blood eosinophils/100 leukocytes 0 % 0-10 Automated blood basophils/100 leukocytes 0 % 0-10 Blood neutrophils automated count (number/volume) 13.2 10*3 1.8-7.8 Blood lymphocytes automated count (number/volume) 1.3 10*3 1.0-4.0 Blood monocytes automated count (number/volume) 1.6 10*3 0.0-1.0 Automated eosinophil count 0.0 10*3/uL 0.0-0.3 Automated blood basophil count (count/volume) 0.0 10*3/uL 0.0-0.1 Comprehensive metabolic panel - 08/10/18 05:22 Serum or plasma sodium measurement (moles/volume) 142 mmol/L 135-145 Serum or plasma potassium measurement (moles/volume) 4.6 mmol/L 3.6-5.0 Serum or plasma chloride measurement (moles/volume) 113 mmol/L 98-107 Carbon dioxide 16 mmol/L 21-32 Serum or plasma anion gap determination (moles/volume) 13 mmol/L 5-14 Serum or plasma urea nitrogen measurement (mass/volume) 70 mg/dL 7-18 Serum or plasma creatinine measurement (mass/volume) 2.72 mg/dL 0.60-1.30 Serum or plasma urea nitrogen/creatinine mass ratio 26 NRG Serum or plasma creatinine measurement with calculation of estimated glomerular filtration rate 22 NRG Serum or plasma glucose measurement (mass/volume) 253 mg/dL 70-105 Serum or plasma calcium measurement (mass/volume) 9.3 mg/dL 8.5-10.1 Serum or plasma total bilirubin measurement (mass/volume) 0.3 mg/dL 0.1-1.0 Serum or plasma alkaline phosphatase measurement (enzymatic activity/volume) 69 U/L 40-136 Serum or plasma aspartate aminotransferase measurement (enzymatic activity/ volume) 13 U/L 5-34 Serum or plasma alanine aminotransferase measurement (enzymatic activity/volume ) 15 U/L 0-55 Serum or plasma protein measurement (mass/volume) 7.2 g/dL 6.4-8.2 Serum or plasma albumin measurement (mass/volume) 3.4 g/dL 3.2-4.5 CALCIUM CORRECTED 9.8 mg/dL 8.5-10.1 Lipid 1996 panel - 08/10/18 05:22 Serum or plasma triglyceride measurement (mass/volume) 114 mg/dL <150 Serum or plasma cholesterol measurement (mass/volume) 239 mg/dL < 200 Serum or plasma cholesterol in HDL measurement (mass/volume) 43 mg/ dL 40-60 Cholesterol in LDL [mass/volume] in serum or plasma by direct assay 177 mg/dL 1-129 Serum or plasma cholesterol in VLDL measurement (mass/volume) 23 mg/ dL 5-40 Whole blood basic metabolic panel - 08/10/18 09:25 Serum or plasma sodium measurement (moles/volume) 140 mmol/L 135-145 Serum or plasma potassium measurement (moles/volume) 4.1 mmol/L 3.6-5.0 Serum or plasma chloride measurement (moles/volume) 113 mmol/L 98-107 Carbon dioxide 14 mmol/L 21-32 Serum or plasma anion gap determination (moles/volume) 13 mmol/L 5-14 Serum or plasma urea nitrogen measurement (mass/volume) 67 mg/dL 7-18 Serum or plasma creatinine measurement (mass/volume) 2.57 mg/dL 0.60-1.30 Serum or plasma urea nitrogen/creatinine mass ratio 26 NRG Serum or plasma creatinine measurement with calculation of estimated glomerular filtration rate 24 NRG Serum or plasma glucose measurement (mass/volume) 195 mg/dL 70-105 Serum or plasma calcium measurement (mass/volume) 9.2 mg/dL 8.5-10.1 Vancomycin trough - 08/10/18 09:25 Vancomycin trough 19.3 ug/mL 10.0-20.0 Complete blood count (CBC) with automated white blood cell (WBC) differential - 08/11/18 05:15 Blood leukocytes automated count (number/volume) 18.2 10*3/uL 4.3-11.0 Blood erythrocytes automated count (number/volume) 3.68 10*6/uL 4.35-5.85 Venous blood hemoglobin measurement (mass/volume) 11.1 g/dL 13.3-17.7 Blood hematocrit (volume fraction) 34 % 40-54 Automated erythrocyte mean corpuscular volume 93 [foz_us] 80-99 Automated erythrocyte mean corpuscular hemoglobin (mass per erythrocyte) 30 pg 25-34 Automated erythrocyte mean corpuscular hemoglobin concentration measurement ( mass/volume) 32 g/dL 32-36 Automated erythrocyte distribution width ratio 14.9 % 10.0-14.5 Automated blood platelet count (count/volume) 329 10*3/uL 130-400 Automated blood platelet mean volume measurement 10.1 [foz_us] 7.4-10.4 Automated blood neutrophils/100 leukocytes 81 % 42-75 Automated blood lymphocytes/100 leukocytes 7 % 12-44 Blood monocytes/100 leukocytes 13 % 0-12 Automated blood eosinophils/100 leukocytes 0 % 0-10 Automated blood basophils/100 leukocytes 0 % 0-10 Blood neutrophils automated count (number/volume) 14.6 10*3 1.8-7.8 Blood lymphocytes automated count (number/volume) 1.2 10*3 1.0-4.0 Blood monocytes automated count (number/volume) 2.3 10*3 0.0-1.0 Automated eosinophil count 0.0 10*3/uL 0.0-0.3 Automated blood basophil count (count/volume) 0.0 10*3/uL 0.0-0.1 Comprehensive metabolic panel - 08/11/18 05:15 Serum or plasma sodium measurement (moles/volume) 140 mmol/L 135-145 Serum or plasma potassium measurement (moles/volume) 4.7 mmol/L 3.6-5.0 Serum or plasma chloride measurement (moles/volume) 115 mmol/L 98-107 Carbon dioxide 15 mmol/L 21-32 Serum or plasma anion gap determination (moles/volume) 10 mmol/L 5-14 Serum or plasma urea nitrogen measurement (mass/volume) 58 mg/dL 7-18 Serum or plasma creatinine measurement (mass/volume) 2.28 mg/dL 0.60-1.30 Serum or plasma urea nitrogen/creatinine mass ratio 25 NRG Serum or plasma creatinine measurement with calculation of estimated glomerular filtration rate 28 NRG Serum or plasma glucose measurement (mass/volume) 209 mg/dL 70-105 Serum or plasma calcium measurement (mass/volume) 8.7 mg/dL 8.5-10.1 Serum or plasma total bilirubin measurement (mass/volume) 0.4 mg/dL 0.1-1.0 Serum or plasma alkaline phosphatase measurement (enzymatic activity/volume) 64 U/L 40-136 Serum or plasma aspartate aminotransferase measurement (enzymatic activity/ volume) 29 U/L 5-34 Serum or plasma alanine aminotransferase measurement (enzymatic activity/volume ) 38 U/L 0-55 Serum or plasma protein measurement (mass/volume) 6.5 g/dL 6.4-8.2 Serum or plasma albumin measurement (mass/volume) 3.1 g/dL 3.2-4.5 CALCIUM CORRECTED 9.4 mg/dL 8.5-10.1 Serum or plasma troponin i.cardiac measurement (mass/volume) - 08/11/18 05:15 Serum or plasma troponin i.cardiac measurement (mass/volume) 0.69 ng /mL <0.30 Complete blood count (CBC) with automated white blood cell (WBC) differential - 08/12/18 05:15 Blood leukocytes automated count (number/volume) 17.2 10*3/uL 4.3-11.0 Blood erythrocytes automated count (number/volume) 3.61 10*6/uL 4.35-5.85 Venous blood hemoglobin measurement (mass/volume) 10.9 g/dL 13.3-17.7 Blood hematocrit (volume fraction) 34 % 40-54 Automated erythrocyte mean corpuscular volume 93 [foz_us] 80-99 Automated erythrocyte mean corpuscular hemoglobin (mass per erythrocyte) 30 pg 25-34 Automated erythrocyte mean corpuscular hemoglobin concentration measurement ( mass/volume) 33 g/dL 32-36 Automated erythrocyte distribution width ratio 15.1 % 10.0-14.5 Automated blood platelet count (count/volume) 325 10*3/uL 130-400 Automated blood platelet mean volume measurement 9.9 [foz_us] 7.4-10.4 Automated blood neutrophils/100 leukocytes 83 % 42-75 Automated blood lymphocytes/100 leukocytes 6 % 12-44 Blood monocytes/100 leukocytes 10 % 0-12 Automated blood eosinophils/100 leukocytes 0 % 0-10 Automated blood basophils/100 leukocytes 0 % 0-10 Blood neutrophils automated count (number/volume) 14.4 10*3 1.8-7.8 Blood lymphocytes automated count (number/volume) 1.0 10*3 1.0-4.0 Blood monocytes automated count (number/volume) 1.8 10*3 0.0-1.0 Automated eosinophil count 0.0 10*3/uL 0.0-0.3 Automated blood basophil count (count/volume) 0.0 10*3/uL 0.0-0.1 Comprehensive metabolic panel - 08/12/18 05:15 Serum or plasma sodium measurement (moles/volume) 140 mmol/L 135-145 Serum or plasma potassium measurement (moles/volume) 4.4 mmol/L 3.6-5.0 Serum or plasma chloride measurement (moles/volume) 115 mmol/L 98-107 Carbon dioxide 17 mmol/L 21-32 Serum or plasma anion gap determination (moles/volume) 8 mmol/L 5-14 Serum or plasma urea nitrogen measurement (mass/volume) 53 mg/dL 7-18 Serum or plasma creatinine measurement (mass/volume) 2.02 mg/dL 0.60-1.30 Serum or plasma urea nitrogen/creatinine mass ratio 26 NRG Serum or plasma creatinine measurement with calculation of estimated glomerular filtration rate 32 NRG Serum or plasma glucose measurement (mass/volume) 183 mg/dL 70-105 Serum or plasma calcium measurement (mass/volume) 8.8 mg/dL 8.5-10.1 Serum or plasma total bilirubin measurement (mass/volume) 0.4 mg/dL 0.1-1.0 Serum or plasma alkaline phosphatase measurement (enzymatic activity/volume) 61 U/L 40-136 Serum or plasma aspartate aminotransferase measurement (enzymatic activity/ volume) 23 U/L 5-34 Serum or plasma alanine aminotransferase measurement (enzymatic activity/volume ) 45 U/L 0-55 Serum or plasma protein measurement (mass/volume) 6.2 g/dL 6.4-8.2 Serum or plasma albumin measurement (mass/volume) 3.0 g/dL 3.2-4.5 CALCIUM CORRECTED 9.6 mg/dL 8.5-10.1 Serum or plasma lithium measurement (moles/volume) - 08/12/18 05:15 BNP level 2329.5 pg/mL <100.0 Vancomycin trough - 08/12/18 11:16 Vancomycin trough 19.3 ug/mL 10.0-20.0 Encounters ACCT No. Visit Date/Time Discharge Status Pt. Type Provider Facility Loc./Unit Complaint [id number] 02/02/2018 12:30:00 02/02/2018 23:59:59 CLS Preadmit PET[facility] [employer] [facility] CARD BRADYCARDIA [id number] 11/03/2017 12:26:00 02/01/2018 00:01:00 DIS Outpatient PETER ARNOLD [employer] [facility] CARD BRADYCARDIA [id number] 10/23/2017 11:20:00 10/23/2017 23:59:59 CLS Outpatient PETER ARNOLD [employer] [facility] RAD J18.9 [id number] 10/13/2017 16:25:00 10/13/2017 23:59:59 CLS Outpatient PETER ARNOLD [employer] [facility] RAD SOA [id number] 09/20/2017 20:55:00 09/21/2017 06:05:00 DIS Outpatient GIOVANI ACEVEDO, JADE Haynes [facility] SLEEP DENVER [id number] 08/19/2017 21:01:00 08/20/2017 06:02:00 DIS Outpatient JUDI ACEVEDO, LYSSA Heredia [facility] SLEEP SNORING,HTN [id number] 08/06/2017 12:00:00 08/06/2017 23:59:59 CLS Outpatient CLAU MORAES MD [facility] LAB LEUKOCYTOSIS [id number] 07/31/2017 10:48:00 07/31/2017 23:59:59 CLS Outpatient PETER [facility] [employer] [facility] LAB LEUKOCYTOSIS [id number] 01/10/2017 11:15:00 01/10/2017 23:59:59 CLS Outpatient JENNIFER SERNA [facility] RAD COUGH,WHEEZING [id number] 11/19/2016 09:30:00 11/19/2016 23:59:59 CLS Outpatient YEYO ACEVEDO, GEORGINA S [facility] RAD HYPERTENSIVE DISORDER ,GOUT [id number] 08/26/2016 14:35:00 08/26/2016 23:59:59 CLS Outpatient CLAU MORAES MD [facility] LAB ABNORMAL WBC [id number] 01/25/2016 11:14:00 01/25/2016 14:29:00 DIS Outpatient CLAU MORAES MD [facility] REHAB GAIT STABILIZATION [id number] 03/13/2015 11:44:00 03/13/2015 23:59:59 CLS Outpatient CLAU MORAES MD [facility] CARD F/U PNEUMONIA [id number] 01/31/2015 19:00:00 02/03/2015 10:55:00 DIS Inpatient CLAU MORAES MD [facility] SURGICAL PNEUMONIA [id number] 08/05/2018 15:30:00 ACT Inpatient HILL SOLORZANO MD [facility] 4TH DEBILITY,GENERALIZED WEAKNESS, R KNEE PAIN [id number] 09/25/2011 08:53:00 Document Registration [id number] 07/01/2011 08:57:00 Document Registration [id number] 06/25/2011 11:32:00 Document Registration
== END 2018-08-12 20:49 | disposition short-term general hospital (02) | DRG 553 ==
LOC: EDUNIT# 10:44 → ER 10:45 → 4TH 15:13 → UNDOADMOB 15:30 → 4TH 15:30 → OBSVTOIN 08-06 09:10 → INTOOBSV 08-06 09:10 → OBSVTOIN 08-06 09:11 → UNDODISIN 08-12 20:49
PROVIDERS: ADMIT Internal Medicine; ATTEND Family Medicine
PROC: 0S9C3ZX Drainage of Right Knee Joint, Percutaneous Approach, Diagnostic (ICD-10-PCS; principal; 2018-08-05)
PROC: 0S9C3ZX Drainage of Right Knee Joint, Percutaneous Approach, Diagnostic (ICD-10-PCS; 2018-08-06)
PROC: B2111ZZ Fluoroscopy of Multiple Coronary Arteries using Low Osmolar Contrast (ICD-10-PCS; 2018-08-12)
DX: M10.9 Gout, unspecified (principal); N17.9 Acute kidney failure, unspecified; I21.4 Non-ST elevation (NSTEMI) myocardial infarction; I13.0 Hypertensive heart and chronic kidney disease with heart failure and stage 1 through stage 4 chronic kidney disease, or unspecified chronic kidney disease; I50.23 Acute on chronic systolic (congestive) heart failure; N18.4 Chronic kidney disease, stage 4 (severe); D63.1 Anemia in chronic kidney disease; I25.5 Ischemic cardiomyopathy; I25.10 Atherosclerotic heart disease of native coronary artery without angina pectoris; R53.81 Other malaise; N40.0 Benign prostatic hyperplasia without lower urinary tract symptoms; H57.89 Other specified disorders of eye and adnexa; M54.5 Low back pain; E78.00 Pure hypercholesterolemia, unspecified; Z91.81 History of falling; I49.3 Ventricular premature depolarization; R00.1 Bradycardia, unspecified; R06.03 Acute respiratory distress
CPT/HCPCS: 36415; 71045; 72131; 73562; 80048; 80053; 80061; 80202; 81000; 82945; 83605; 83880; 84484; 84550; 85007; 85025; 85027; 85652; 87040; 87070; 87075; 87205; 88112; 88305; 89051; 89060; 93005; 93306; 93454; 94660; G0378